=== PATIENT | female | born 1990 | race Hispanic/Latino ===

== ENCOUNTER 2020-06-23 15:28 | Observation (INO) | payer MEDICAID, SELFPAY ==
--- NOTE | ~2020-06-23 | US_ITS ---
US OB <=14 wk fetus w TV DATE: 06/23/2020 18:18 INDICATION: Right pelvic pain. Vaginal bleeding. Gravid patient. TECHNIQUE: Real-time imaging via transabdominal and transvaginal approaches. COMPARISON: None FINDINGS: The uterus measures 8 cm height, up to 5.7 cm anteroposterior and 7.3 cm transverse dimensi on. The central endometrial echo complex measures up to 2.1 cm. No intrauterine gestational sac is identi fied. In the left adnexal area and immediately contiguous with the left ovary there is an approximately 1.8 cm soft tissue density with central lucency, with hyperechoic rim surrounding lucency suggesting pos sible decidual reaction. Ectopic gestation is a concern. The findings are concern for possible left s ided ectopic gestation, with endometrial proliferation. The technologist reported no free fluid. IMPRESSION: Possible left ectopic gestation, with endometrial proliferation Reviewed, dictated and finalized at [facility]. Reviewed, dictated and finalized at location [facility].
--- NOTE | 2020-06-23 15:36 | ED.ABDPAIN ---
HPI - Abdominal Pain General Chief Complaint: Abdominal Pain Stated Complaint: preg?? abd pain/bleeding Time Seen by Provider: 06/23/20 15:31 Source: patient Mode of arrival: ambulatory Limitations: no limitations History of Present Illness HPI narrative: Patient is a 29-year-old female G2, P1 Mongolian speaking female who presents for evaluation of vaginal bleeding and pelvic pain. Patient reports right-sided lower pelvic pain which is currently mild in nature but was sharp in nature this morning and began at approximately 10:30 in the morning. Associated with scant vaginal bleeding which has mostly resolved. Patient denies any other vaginal discharge. No history of sexually transmitted infection. No fever, chills, nausea or vomiting. No back pain. Patient has no history of abdominal surgeries. She states her last menstrual cycle was May 11. Related Data Home Medications Medication Instructions Recorded Confirmed No Home Medications 06/23/20 06/23/20 Allergies Allergy/AdvReac Type Severity Reaction Status Date / Time No Known Allergies Allergy Verified 06/23/20 15:29 Review of Systems Review of Systems: Narrative: CONSTITUTIONAL: Denies fever, chills ENT: Denies rhinorrhea, congestion, sore throat, or otalgia. CARDIOVASCULAR: Denies chest pain, palpitations, or edema. RESPIRATORY: Denies cough or dyspnea. GASTROINTESTINAL: Reports right-sided abdominal pain, denies nausea, vomiting or diarrhea GENITOURINARY: Denies dysuria or hematuria. SKIN: Denies rash or itching. MUSCULOSKELETAL: Denies back pain, joint pain, or myalgia. NEUROLOGIC: Denies headache, numbness, or weakness. [facility] Past Medical History Medical History (Updated 06/23/20 @ 18:18 by Katey Justin MD) No pertinent past medical history Surgical History Surgical History (Updated 06/23/20 @ 16:18 by Katey Justin MD) No pertinent past surgical history Social History Social History (Updated 06/23/20 @ 16:18 by Katey Justin MD) Smoking status: Never smoker Alcohol intake: never Substance use: never Living arrangements: with family Gender identity (if verbalized by the patient): Female Exam Narrative: Exam Narrative: GENERAL: Awake, alert, conversant HEAD: Normocephalic, atraumatic. EYES: PERRLA and EOMI. ENT: Nares clear, no rhinorrhea or epistaxis. Mucous membranes moist. NECK: Supple. CHEST: No respiratory distress, breathing even and non labored HEART: Regular rate, sinus rhythm ABDOMEN:Non distended, mild right pelvic tenderness, no focal right lower quadrant tenderness, no rebound, no guarding, nonrigid PELVIC: Labia majora and minora normal without lesions. Vagina with scant blood. No cervical motion tenderness. No adnexal tenderness or fullness bilaterally. No mucoid discharge present. EXTREMITIES: Normal range of motion. No edema. SKIN: Warm, dry, no rash. NEURO:No focal deficits. Alert and oriented x3 Course Vital Signs Vital signs: Vital Signs Temperature 36.9 C 06/23/20 17:00 Pulse Rate 76 06/23/20 17:00 Respiratory Rate 16 06/23/20 17:00 Blood Pressure 116/76 06/23/20 17:00 Pulse Oximetry 99 06/23/20 17:00 Temperature 36.9 C 06/23/20 17:00 Pulse Rate 76 06/23/20 18:42 Respiratory Rate 16 06/23/20 18:42 Blood Pressure 128/80 06/23/20 18:42 Pulse Oximetry 100 06/23/20 18:42 MDM - Abdominal Pain MDM Narrative Medical decision making narrative: Patient presented to the emergency department for evaluation of right-sided lower pelvic pain in the setting of what may be early . Patient denies taking any test at home. At the time of assessment, ABCs are intact and vital signs are stable. Physical exam is notable for mild right lower pelvic tenderness. Patient's bedside test is faintly positive. IV access obtained and labs are drawn. Laboratory results notable for mild leukocytosis. No anemia. No electrolyte derangement. No UTI.
[2020-06-23 15:57] LABS: Basophils Absolute Auto 0.1 K/mm3 (0.0-0.1); Basophils Percent Auto 0.8 % (0.2-1.2); Eosinophils Absolute Auto 0.5 K/mm3 (0-0.3); Eosinophils Percent Auto 4.4 % (0-4.4); Hematocrit 40.5 % (37.0-47.0); Hemoglobin 13.8 g/dL (12.0-15.0); Immature Granulocyte Absolute 0.03 K/mm3 (0.00-0.031); Immature Granulocyte Percent A 0.3 % (0-0.5); Lymphocytes Absolute Auto 3.61 K/mm3 (0.9-3.2); Lymphocytes Percent Auto 31.8 % (18.3-44.2); Mean Corpuscular HGB Conc 34.1 g/dl (32-36); Mean Corpuscular Hemoglobin 32.2 pg (26-34); Mean Corpuscular Volume 94.6 fl (80-100); Mean Platelet Volume 10.2 fl (7.4-10.4); Monocytes Absolute Auto 0.9 K/mm3 (0.1-0.6); Monocytes Percent Auto 8.1 % (2.6-8.5); Neutrophils Absolute Auto 6.2 K/mm3 (1.3-6.7); Neutrophils Percent Auto 54.6 % (45.5-73.1); Platelet Count Result 325 k/mm3 (150-375); Red Blood Count 4.28 M/mm3 (4.2-5.4); Red Cell Distribution Width 11.8 % (11.5-14.5); White Blood Count 11.3 K/mm3 (4.5-10.0)
[2020-06-23 16:06] LABS: Prothrombin Time 12.5 Seconds (11.1-14.7)
[2020-06-23 16:10] LABS: Alanine Aminotransferase 12 U/L (4-35); Albumin Level 4.2 g/dL (3.5-5.1); Alkaline Phosphatase 66 U/L (38-126); Anion Gap 8 mmol/L (8-16); Aspartate Amino Transferase 19 U/L (14-36); Bilirubin,Total 0.5 mg/dL (0.2-1.3); Blood Urea Nitrogen 13 mg/dL (7-17); Calcium 8.8 mg/dL (8.4-10.2); Carbon Dioxide 25 mmol/L (22-30); Chloride 104 mmol/L (98-107); Estimated Glomerular Filt Rate > 60; Glucose 141 mg/dL (65-105); Potassium 3.9 mmol/L (3.4-5.0); Sodium 137 mmol/L (137-145)
[2020-06-23 16:26] LABS: Beta HCG Quantitative 325.39 mIU/ML
[2020-06-23] MEDS: SODIUM CHLORIDE 0.9% IV 1,000 ML 999 ML IV CONT ×2 (16:56→19:21)
[2020-06-23 17:00] VITALS: BP 116/76; PULSE 76; RESP 16; TEMP 36.9; O2SAT 99
[2020-06-23 17:06] LABS: Add Urine Microscopic? YES; Appearance Urine Clear (Clear); Bilirubin Urine Negative (Negative); Blood Urine 2+ (Negative); Color Urine Straw (Yellow); Glucose Urine UA Negative (Negative); Ketones Urine Negative (Negative); Leukocyte Esterase Ur Negative LEU/UL (Negative); Mucus Urine Rare /lpf; Nitrate Urine Negative (Negative); Protein Urine Negative (Negative); RBC Urine 0-2 /hpf (0-2); Squamous Epithelial Cell Urine Few /hpf (Few); Urobilinogen Urine Negative mg/dL (<2.0); WBC Urine 0-3 /hpf
[2020-06-23 18:42] VITALS: BP 128/80; PULSE 76; RESP 16; O2SAT 100
[2020-06-23 20:46] VITALS: BP 127/70; PULSE 77; RESP 18; TEMP 36.8; O2SAT 99
--- NOTE | 2020-06-23 20:47 | ADMGEN ---
This patient, Ina Chowdary, was admitted to 3 Medical Room 340-01. Patient/family oriented to hospital policies and general routines including ID bracelet, bed and alarms, visiting hours, pain management, procedures, bathroom and other care routines, personal items, smoking policy, room service/diet, and visiting hours. Valuables list has been completed. Information on how to activate the Rapid Response Team has been discussed. Patient/Family are encouraged to report perceived risks to care and to ask questions if they do not understand what they are told or what they should do.
[2020-06-23 21:13] VITALS: BMI 23.1
[2020-06-23 21:14] VITALS: BP 104/62; PULSE 66; RESP 16; TEMP 36.7; O2SAT 100
[2020-06-24 05:43] LABS: Basophils Absolute Auto 0.1 K/mm3 (0.0-0.1); Basophils Percent Auto 0.8 % (0.2-1.2); Eosinophils Absolute Auto 0.6 K/mm3 (0-0.3); Eosinophils Percent Auto 5.1 % (0-4.4); Hematocrit 40.4 % (37.0-47.0); Hemoglobin 13.5 g/dL (12.0-15.0); Immature Granulocyte Absolute 0.04 K/mm3 (0.00-0.031); Immature Granulocyte Percent A 0.4 % (0-0.5); Lymphocytes Absolute Auto 4.03 K/mm3 (0.9-3.2); Lymphocytes Percent Auto 36.9 % (18.3-44.2); Mean Corpuscular HGB Conc 33.4 g/dl (32-36); Mean Corpuscular Hemoglobin 32.5 pg (26-34); Mean Corpuscular Volume 97.1 fl (80-100); Mean Platelet Volume 10.1 fl (7.4-10.4); Monocytes Absolute Auto 0.8 K/mm3 (0.1-0.6); Monocytes Percent Auto 7.6 % (2.6-8.5); Neutrophils Absolute Auto 5.4 K/mm3 (1.3-6.7); Neutrophils Percent Auto 49.2 % (45.5-73.1); Platelet Count Result 305 k/mm3 (150-375); Red Blood Count 4.16 M/mm3 (4.2-5.4); Red Cell Distribution Width 11.9 % (11.5-14.5); White Blood Count 10.9 K/mm3 (4.5-10.0)
[2020-06-24 06:10] LABS: Beta HCG Quantitative 222.37 mIU/ML
[2020-06-24 06:21] VITALS: BP 109/58; PULSE 80; RESP 16; TEMP 37.1; O2SAT 100
--- NOTE | 2020-06-24 07:29 | PM.IMHP ---
H&P: HPI History of Present Illness Date/Time: 06/24/20 07:29 Chief complaint: Ectopic , possible free fluid Narrative: Ina Chowdary is a 29 year old female who came to the ED with complaint of vaginal spotting and RLQ pain. Patient LMP was 05/11/20 and + test of 325. U/s as expected did not show anything in the uterus but did have a 1.8 cm mass in Left adnexa. This am patient reports only minimal dark spotting and denies pain. This am HCG decreased in 12 hours to 222. H/H remain stable at 13/40. [facility] Past Medical History Medical History (Updated 06/24/20 @ 07:35 by Janell Grider MD) No pertinent past medical history Surgical History Surgical History (Updated 06/23/20 @ 16:18 by Katey Justin MD) No pertinent past surgical history Social History Social History (Updated 06/23/20 @ 16:18 by Katey Justin MD) Smoking status: Never smoker Alcohol intake: never Substance use: never Substance use type: does not use Living arrangements: with family Gender identity (if verbalized by the patient): Female Spiritual care concerns: No Meds Home Medications and Allergies Home Medications Medication Instructions Recorded Confirmed Type No Home Medications 06/23/20 06/23/20 History Allergies Allergy/AdvReac Type Severity Reaction Status Date / Time No Known Allergies Allergy Verified 06/23/20 15:29 Vital Signs Vital Signs - 24 hr 06/23/20 17:00 06/23/20 18:42 06/23/20 20:46 Temperature 98.4 F 98.2 F Pulse Rate 76 76 77 Respiratory Rate 16 16 18 Blood Pressure 116/76 128/80 127/70 Pulse Oximetry 99 100 99 06/23/20 21:14 06/24/20 06:21 Temperature 98.1 F 98.8 F Pulse Rate 66 80 Respiratory Rate 16 16 Blood Pressure 104/62 109/58 L Pulse Oximetry 100 100 Exam Const: General: no acute distress GI: GI Palp: Yes Soft to palpation and No Tenderness to palpation present (GI) H&P: Results Labs Labs: Short CBC 06/23/20 06/23/20 06/23/20 Range/Units 15:52 15:52 15:52 WBC 11.3 H (4.5-10.0) K/mm3 RBC 4.28 (4.2-5.4) M/mm3 Hgb 13.8 (12.0-15.0) g/dL Hct 40.5 (37.0-47.0) % MCV 94.6 (80-100) fl MCH 32.2 (26-34) pg MCHC 34.1 (32-36) g/dl RDW 11.8 (11.5-14.5) % Plt Count 325 (150-375) k/mm3 MPV 10.2 (7.4-10.4) fl Immature Gran % (Auto) 0.3 (0-0.5) % Neut % (Auto) 54.6 (45.5-73.1) % Lymph % (Auto) 31.8 (18.3-44.2) % [place] % (Auto) 8.1 (2.6-8.5) % Eos % (Auto) 4.4 (0-4.4) % Baso % (Auto) 0.8 (0.2-1.2) % Lymph # (Auto) 3.61 H (0.9-3.2) K/mm3 [place] # (Auto) 0.9 H (0.1-0.6) K/mm3 Eos # (Auto) 0.5 H (0-0.3) K/mm3 Baso # (Auto) 0.1 (0.0-0.1) K/mm3 Abs Immat Gran (auto) 0.03 (0.00-0.031) K/mm3 Absolute Neuts (auto) 6.2 (1.3-6.7) K/mm3 Absolute Nucleated RBC 0.0 (0.0-0.012) K/mm3 Nucleated RBC % 0.0 (0.0-0.2) % PT 12.5 (11.1-14.7) Seconds INR 1.0 APTT 28.0 (22.3-36.8) SECONDS Sodium 137 (137-145) mmol/L Potassium 3.9 (3.4-5.0) mmol/L Chloride 104 (98-107) mmol/L Carbon Dioxide 25 (22-30) mmol/L Anion Gap 8 (8-16) mmol/L BUN 13 (7-17) mg/dL Creatinine 0.50 L (0.7-1.0) mg/dL Estim Creat Clear Calc Not Reportable Estimated GFR > 60 (59 - ) Glucose 141 H (65-105) mg/dL Calcium 8.8 (8.4-10.2) mg/dL Total Bilirubin 0.5 (0.2-1.3) mg/dL AST 19 (14-36) U/L ALT 12 (4-35) U/L Alkaline Phosphatase 66 (38-126) U/L Total Protein 7.0 (6.3-8.2) g/dL Albumin 4.2 (3.5-5.1) g/dL Beta HCG, Quant 325.39 mIU/ML Urine Color (Yellow) Urine Appearance (Clear) Urine pH (5.0-9.0) Ur Specific [place] (1.001-1.035) Urine Protein (Negative) mg/dL Urine Glucose (UA) (Negative) mg/dL Urine Ketones (Negative) mg/dL Ur Blood (Man) (Negative) Urine Nitrate (Negative) Urine Bilirubin (Negative)
[2020-06-26 16:56] LABS: Tacrolimus Prograf <1.0 mcg/L
== END 2020-06-24 09:15 | disposition home or self-care (01) ==
LOC: ANHED 18:18 → ANH3MED 19:39
PROVIDERS: Admitting Provider Obstetrics & Gynecology Gynecology; Emergency Provider Emergency Medicine; Visit Provider Obstetrics & Gynecology Gynecology
DX: O03.9 Complete or unspecified spontaneous abortion without complication (principal); O00.90 Unspecified ectopic pregnancy without intrauterine pregnancy; Z3A.00 Weeks of gestation of pregnancy not specified
CPT/HCPCS: 36415; 76801; 76817; 80053; 80180; 80197; 81001; 81025; 84702; 85025; 85461; 85610; 85730; 87070; 87491; 87591; 87808; 96361; 96365; 99285; G0378; G0379; J0131; J7030

== ENCOUNTER 2020-12-12 18:05 | Emergency (ER) | payer OTHER, SELFPAY ==
--- NOTE | ~2020-12-12 | US_ITS ---
EXAMINATION: US OB <=14 wk fetus w TV DATE: 12/12/2020 22:18 INDICATION: Low abdominal pain. TECHNIQUE: Real-time transabdominal and transvaginal pelvic ultrasound was performed. COMPARISON: None. FINDINGS: TRANSABDOMINAL ULTRASOUND: The uterus measures 7.7 x 5.1 x 6.5 cm. TRANSVAGINAL ULTRASOUND: There is an intrauterine gestational sac with mean diameter of 1.2 cm, which correlates with an estimated gestational age of 5 weeks and 6 days +/- 4 days. A yolk sac is identif ied. No pole is identified. The right ovary measures 1.9 x 2.8 x 1.9 cm. The left ovary measur es 2.7 x 2.3 x 1.9 cm. There is no free fluid in the pelvis. IMPRESSION: 1. Single intrauterine gestation with estimated date of delivery of 08/08/2021. Reviewed, dictated and finalized at location A. 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 Single intrauterine gestation with estimated date of delivery of 08/08/2021 .
[2020-12-12 19:31] VITALS: BP 125/80; PULSE 85; RESP 18; TEMP 36.6; O2SAT 97
[2020-12-12 19:56] LABS: Basophils Absolute Auto 0.1 K/mm3 (0.0-0.1); Basophils Percent Auto 0.7 % (0.2-1.2); Eosinophils Absolute Auto 0.1 K/mm3 (0-0.3); Hematocrit 42.9 % (37.0-47.0); Hemoglobin 14.9 g/dL (12.0-15.0); Immature Granulocyte Absolute 0.02 K/mm3 (0.00-0.031); Immature Granulocyte Percent A 0.3 % (0-0.5); Lymphocytes Absolute Auto 1.44 K/mm3 (0.9-3.2); Lymphocytes Percent Auto 20.7 % (18.3-44.2); Mean Corpuscular HGB Conc 34.7 g/dl (32-36); Mean Corpuscular Volume 95.1 fl (80-100); Mean Platelet Volume 9.8 fl (7.4-10.4); Monocytes Percent Auto 14.8 % (2.6-8.5); Neutrophils Absolute Auto 4.4 K/mm3 (1.3-6.7); Neutrophils Percent Auto 62.5 % (45.5-73.1); Platelet Count Result 343 k/mm3 (150-375); Red Blood Count 4.51 M/mm3 (4.2-5.4); Red Cell Distribution Width 12.1 % (11.5-14.5)
[2020-12-12 20:08] LABS: Alanine Aminotransferase 25 U/L (4-35); Albumin Level 4.7 g/dL (3.5-5.1); Alkaline Phosphatase 69 U/L (38-126); Anion Gap 7 mmol/L (8-16); Aspartate Amino Transferase 36 U/L (14-36); Bilirubin,Total 0.6 mg/dL (0.2-1.3); Blood Urea Nitrogen 8 mg/dL (7-17); Calcium 9.7 mg/dL (8.4-10.2); Carbon Dioxide 28 mmol/L (22-30); Chloride 102 mmol/L (98-107); Estimated CRCL calculation 112 ml/min; Estimated Glomerular Filt Rate > 60; Glucose 89 mg/dL (65-105); Lipase 67 U/L (23-300); Potassium 3.8 mmol/L (3.4-5.0); Sodium 137 mmol/L (137-145)
[2020-12-12 20:41] LABS: Add Urine Microscopic? YES; Appearance Urine Clear (Clear); Bacteria Urine Trace /hpf; Bilirubin Urine Negative (Negative); Blood Urine Negative (Negative); Color Urine Straw (Yellow); Glucose Urine UA Negative (Negative); Ketones Urine Trace mg/dL (Negative); Leukocyte Esterase Ur Negative LEU/UL (Negative); Nitrate Urine Negative (Negative); Protein Urine Negative (Negative); RBC Urine 0-2 /hpf (0-2); Specific Grav Ur 1.006 (1.001-1.035); Squamous Epithelial Cell Urine Occasional /hpf (Few); Urobilinogen Urine Negative mg/dL (<2.0); WBC Urine 0-3 /hpf
--- NOTE | 2020-12-12 20:45 | ED.GENADULT ---
HPI - General Adult General Chief complaint: Abdominal Pain Stated complaint: right abd pain Time Seen by Provider: 12/12/20 19:55 History of Present Illness HPI narrative: Patient is a 30-year-old female who presents to the ER with lower abdominal pain. Begins in the right lower abdomen and moves to the midline. Cramping in nature. Worse at night. No nausea/vomiting. She has no urinary or gastric symptoms related to this. Patient does have history of ectopic several months ago. She reports her LMP was 10/10/2020. Has not taken a test. She reports she could potentially be . No vaginal bleeding or discharge. Related Data Allergies Allergy/AdvReac Type Severity Reaction Status Date / Time No Known Allergies Allergy Verified 12/12/20 19:59 Review of Systems Review of Systems: All systems reviewed & are unremarkable except as noted in HPI and below Constitutional: Constitutional: Denies chills, Denies fever(s) and Denies weakness Gastrointestinal: Gastrointestinal: Reports abdominal pain, Denies nausea and Denies vomiting Genitourinary: Genitourinary: Denies abnormal vaginal bleeding, Denies nocturia, Denies dysuria and Denies vaginal discharge [facility] Past Medical History Medical History (Updated 12/12/20 @ 23:08 by Yemi Gilmore MD) No pertinent past medical history Surgical History Surgical History (Updated 06/23/20 @ 16:18 by Katey Justin MD) No pertinent past surgical history Social History Social History (Updated 06/23/20 @ 16:18 by Katey Justin MD) Smoking status: Never smoker Alcohol intake: never Substance use: never Substance use type: does not use Gender identity (if verbalized by the patient): Female Spiritual care concerns: No Exam Narrative: Exam Narrative: GENERAL: Well-appearing, well-nourished, and in no acute distress. HEAD: Normocephalic, atraumatic. CHEST: Clear to auscultation. No respiratory distress. HEART: Regular rate and rhythm. Normal peripheral pulses. ABDOMEN: Soft, mild suprapubic tenderness without rebound or guarding next week, additional discomfort in right lower quadrant/adnexal region, nondistended. EXTREMITIES: Normal range of motion. No edema. SKIN: Warm, dry, no rash. NEURO: Alert and oriented x3. PSYCH: Normal mood and affect. Course Course Emergency Course: Patient informed of results. Discharge home vitamins. She does not feel she needs any antiemetics. 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 Vital Signs Vital signs: Vital Signs Temperature 97.8 F 12/12/20 19:31 Pulse Rate 85 12/12/20 19:31 Respiratory Rate 18 12/12/20 19:31 Blood Pressure 125/80 12/12/20 19:31 Pulse Oximetry 97 12/12/20 19:31 Temperature 97.8 F 12/12/20 19:31 Pulse Rate 73 12/12/20 21:24 Respiratory Rate 16 12/12/20 21:24 Blood Pressure 125/80 12/12/20 19:31 Pulse Oximetry 98 12/12/20 21:24 Medical Decision Making Vital Signs Vital Signs: Vital Signs Temperature 97.8 F 12/12/20 19:31 Pulse Rate 85 12/12/20 19:31 Respiratory Rate 18 12/12/20 19:31 Blood Pressure 125/80 12/12/20 19:31 Pulse Oximetry 97 12/12/20 19:31 Temperature 97.8 F 12/12/20 19:31 Pulse Rate 73 12/12/20 21:24 Respiratory Rate 16 12/12/20 21:24 Blood Pressure 125/80 12/12/20 19:31 Pulse Oximetry 98 12/12/20 21:24 Lab Data Result diagrams: 12/12/20 19:49 12/12/20 19:49 Labs: Lab Results 12/12/20 12/12/20 12/12/20 Range/Units 19:49 19:49 20:31 WBC 7.0 (4.5-10.0) K/mm3 RBC 4.51 (4.2-5.4) M/mm3 Hgb 14.9 (12.0-15.0) g/dL Hct 42.9 (37.0-47.0) % MCV 95.1 (80-100) fl MCH 33.0 (26-34) pg MCHC 34.7 (32-36) g/dl RDW 12.1 (11.5-14.5) % Plt Count 343 (150-375) k/mm3 MPV 9.8 (7.4-10.4) fl Immature Gran % (Auto) 0.3 (0-0.5) % Neut % (Au
[2020-12-12 21:24] VITALS: PULSE 73; RESP 16; O2SAT 98
[2020-12-12 23:19] VITALS: BP 115/75; PULSE 78; RESP 16; O2SAT 98
== END 2020-12-12 23:21 | disposition home or self-care (01) ==
PROVIDERS: Emergency Provider Emergency Medicine
DX: O26.891 Other specified pregnancy related conditions, first trimester (principal); R10.31 Right lower quadrant pain; Z3A.01 Less than 8 weeks gestation of pregnancy
CPT/HCPCS: 36415; 76801; 76817; 80053; 81001; 81025; 83690; 85025; 99284

== ENCOUNTER 2021-01-08 16:04 | Outpatient (CLI) | payer OTHER, SELFPAY ==
--- NOTE | ~2021-01-08 | US_ITS ---
EXAMINATION: US OB <= 14 weeks fetus DATE: 01/08/2021 16:44 INDICATION: Encounter for supervision of normal TECHNIQUE: Real-time transabdominal obstetric ultrasound. FINDINGS: Comparison to ultrasound dated 12/12/2020 The uterus measures 14.7 x 8 x 6.5 cm. There is an intrauterine gestational sac, with pole iden tified. The crown rump length measures 3.04 cm. heart tones are identified measuring. 161 no e vidence for subchorionic hemorrhage. The ovaries are not visualized.. IMPRESSION: 1. SL IUP with an EGA of 9 weeks, 5 days (EDC by initial ultrasound of 08/08/2021). Appropriate inter dianne growth. Reviewed, dictated and finalized at location [facility]. IMPRESSION: 1. SL IUP with an EGA of 9 weeks, 5 days (EDC by initial ultrasound of 08/08/20 21). Appropriate interval growth.
== END 2021-01-08 16:05 | disposition home or self-care (01) ==
PROVIDERS: PCP Obstetrics & Gynecology; Visit Provider Obstetrics & Gynecology
DX: Z34.91 Encounter for supervision of normal pregnancy, unspecified, first trimester (principal); Z3A.09 9 weeks gestation of pregnancy
CPT/HCPCS: 76801

== ENCOUNTER 2021-02-19 18:42 | Emergency (ER) | payer OTHER, SELFPAY ==
[2021-02-19 18:43] VITALS: BP 115/72; PULSE 82; RESP 18; TEMP 36.2; O2SAT 100
--- NOTE | 2021-02-19 19:09 | ED.FEMALEGU ---
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 She is 16 weeks She complains of a 1 week history of right groin pain It is worse with some movements and when sitting in certain positions She does not have a fever nor any new GI or urinary symptoms She had 2 episodes of brownish discharge earlier today She has had a previous ED visit this documenting O+, and an intrauterine , confirming the 16-week current gestational age Related Data Home Medications Medication Instructions Recorded Confirmed calcium carbonate-vitamin D3 tablet PO 02/19/21 progesterone micronized mg 02/19/21 Allergies Allergy/AdvReac Type Severity Reaction Status Date / Time No Known Allergies Allergy Verified 02/19/21 18:51 Review of Systems Review of Systems: All systems reviewed & are unremarkable except as noted in HPI and below Respiratory: Respiratory: Denies cough and Denies dyspnea Gastrointestinal: Gastrointestinal: Reports abdominal pain, Denies constipation, Denies diarrhea, Denies nausea and Denies vomiting Genitourinary: Genitourinary: Denies hematuria, Denies dysuria, Reports pelvic pain, Denies flank pain and Reports vaginal discharge [facility] Past Medical History Medical History (Updated 02/19/21 @ 20:30 by Héctor Burch MD) No pertinent past medical history Surgical History Surgical History (Updated 06/23/20 @ 16:18 by Katey Justin MD) No pertinent past surgical history Social History Social History (Updated 06/23/20 @ 16:18 by Katey Justin MD) Smoking status: Never smoker Alcohol intake: never Substance use: never Substance use type: does not use Gender identity (if verbalized by the patient): Female Spiritual care concerns: No Exam Const: General: cooperative, no acute distress and alert Orientation/consciousness: patient oriented x3 (alert) HENMT: Head: normal to inspection, normocephalic and atraumatic Ears: external ears normal General nose exam: no epistaxis Eyes: Conjunctivae: conjunctivae normal EOM: EOMs intact bilaterally Neck: Neck: normal visual inspection, supple and no JVD Resp: Effort & Inspection: normal respiratory effort and not labored Auscultation: other (BS =) GI: GI Palp: Yes Soft to palpation and Yes Tenderness to palpation present (GI) Other: Size consistent with dates She is quite tender in a small well localized area on the muscular insertions of the right side of the symphysis pubis Not too much discomfort with the leg raise There is some brownish d/c, cx sent, empiric rx given : General: Yes no CVA tenderness Skin: General skin exam: normal color and no rashes or lesions noted Neuro: General: patient oriented x3 (alert) and moves all extremities Speech: normal speech Extrem: General: normal to inspection and no pedal edema Psych: Affect: normal affect Course Vital Signs Vital signs: Vital Signs Temperature 36.2 C L 02/19/21 18:43 Pulse Rate 82 02/19/21 18:43 Respiratory Rate 18 02/19/21 18:43 Blood Pressure 115/72 02/19/21 18:43 Pulse Oximetry 100 02/19/21 18:43 Temperature 36.2 C L 02/19/21 18:43 Pulse Rate 82 02/19/21 18:43 Respiratory Rate 18 02/19/21 18:43 Blood Pressure 115/72 02/19/21 18:43 Pulse Oximetry 100 02/19/21 18:43 MDM - Female Genitourinary Lab Data Result diagrams: 02/19/21 19:19 Labs: Lab Results 02/19/21 02/19/21 Range/Units 19:19 19:35 WBC 13.6 H (4.5-10.0) K/mm3 RBC 3.67 L (4.2-5.4) M/mm3 Hgb 12.1 (12.0-15.0) g/dL Hct 35.6 L (37.0-47.0) % MCV 97.0 (80-100) fl MCH 33.0 (26-34) pg MCHC 34.0 (32-36) g/dl
[2021-02-19 19:23] LABS: Basophils Absolute Auto 0.1 K/mm3 (0.0-0.1); Basophils Percent Auto 0.4 % (0.2-1.2); Eosinophils Absolute Auto 0.3 K/mm3 (0-0.3); Eosinophils Percent Auto 2.4 % (0-4.4); Hematocrit 35.6 % (37.0-47.0); Hemoglobin 12.1 g/dL (12.0-15.0); Immature Granulocyte Absolute 0.05 K/mm3 (0.00-0.031); Immature Granulocyte Percent A 0.4 % (0-0.5); Lymphocytes Absolute Auto 3.48 K/mm3 (0.9-3.2); Lymphocytes Percent Auto 25.7 % (18.3-44.2); Mean Platelet Volume 10.1 fl (7.4-10.4); Monocytes Absolute Auto 0.8 K/mm3 (0.1-0.6); Monocytes Percent Auto 6.1 % (2.6-8.5); Neutrophils Absolute Auto 8.8 K/mm3 (1.3-6.7); Platelet Count Result 292 k/mm3 (150-375); Red Blood Count 3.67 M/mm3 (4.2-5.4); Red Cell Distribution Width 12.3 % (11.5-14.5); White Blood Count 13.6 K/mm3 (4.5-10.0)
[2021-02-19 19:43] LABS: Add Urine Microscopic? NO; Appearance Urine Clear (Clear); Bilirubin Urine Negative (Negative); Blood Urine Negative (Negative); Color Urine Colorless (Yellow); Glucose Urine UA Negative (Negative); Ketones Urine Negative (Negative); Leukocyte Esterase Ur Negative LEU/UL (Negative); Nitrate Urine Negative (Negative); Protein Urine Negative (Negative); Urobilinogen Urine Negative mg/dL (<2.0)
[2021-02-19 19:52] LABS: Specific Grav Ur 1.004 (1.001-1.035)
[2021-02-19 20:20] VITALS: BP 98/68; PULSE 73; RESP 20; O2SAT 99
[2021-02-19 21:05] VITALS: BP 104/64; PULSE 71; RESP 18; O2SAT 99
== END 2021-02-19 21:07 | disposition home or self-care (01) ==
PROVIDERS: Emergency Provider Emergency Medicine; PCP Obstetrics & Gynecology
DX: O26.892 Other specified pregnancy related conditions, second trimester (principal); R10.31 Right lower quadrant pain; Z3A.16 16 weeks gestation of pregnancy
CPT/HCPCS: 36415; 81003; 85025; 87070; 87491; 87591; 87808; 99284

== ENCOUNTER 2021-03-07 08:50 | Outpatient (CLI) | payer OTHER, SELFPAY ==
--- NOTE | ~2021-03-07 | US_ITS ---
EXAMINATION: US OB /maternal detail DATE: 03/07/2021 15:27 INDICATION: Second trimester anatomic survey TECHNIQUE: Real-time ultrasound of the pelvis was performed. COMPARISON: None. FINDINGS: There is a single living fetus in breech presentation. The placenta is anterior and 9.3 cm from the i nternal cervical os. heart rate is 154 beats per minute (bpm). cardiac activity and feta l movement are noted. The amniotic fluid index is subjectively normal. The following anatomy was identified as normal: 4 chamber heart 3 vessel cord cord insertion kidney urinary bladder stomach spine diaphragm ventricles cisterna magna cerebellum The following biometric data were obtained: Biparietal diameter (BPD): 4.1 cm; head circumference (HC): 14.9 cm; abdominal circumference (AC): 13 .2 cm; femur length (FL): 2.5 cm. These measurements are concordant. Estimated weight is 228 g +/- 34 g, which correlates with the 58th percentile when 08/08/2021 i s used as estimated date of delivery. As single measurements, these parameters are each equal to the following estimated gestational ages w ith ranges of +/- 2 standard deviations: BPD: 18 weeks 4 days +/- 1 weeks 5 days. HC: 18 weeks 0 days +/- 1 weeks 3 days. AC: 18 weeks 5 days +/- 2 weeks 0 days. FL: 17 weeks 4 days +/- 1 weeks 3 days. estimated gestational age based solely on measurements from this exam is 18 weeks 2 days +/- 1 weeks 2 days. IMPRESSION: 1. Single living fetus in breech presentation. 2. Estimated weight is 228 g +/- 34 g, which correlates with the 58th percentile when is used as estimated date of delivery. Reviewed, dictated and finalized at location A. IMPRESSION: 1. Single living fetus in breech presentation. 2. Estimated weight is 228 g +/- 34 g, which correlates with the 58th per centile when 08/08/2021 is used as estimated date of delivery.
== END 2021-03-07 08:51 | disposition home or self-care (01) ==
PROVIDERS: Visit Provider Obstetrics & Gynecology
DX: Z34.92 Encounter for supervision of normal pregnancy, unspecified, second trimester (principal); Z3A.18 18 weeks gestation of pregnancy
CPT/HCPCS: 76805

== ENCOUNTER 2021-04-24 16:36 | Outpatient (CLI) | payer OTHER, SELFPAY ==
--- NOTE | ~2021-04-24 | US_ITS ---
EXAMINATION: US OB follow up DATE: 04/24/2021 17:06 INDICATION: Evaluate growth TECHNIQUE: Real-time transabdominal obstetric ultrasound. FINDINGS: Comparison to multiple prior studies sequentially, with oldest reviewed study dated . There is a single living fetus in breech presentation. The placenta is anterior without placenta pre via. cardiac activity and movement is noted with a heart rate of 161 beats per minute. T he amniotic fluid volume is subjectively normal. The following biometric data were obtained: BPD: 42mm corresponds to gestational age 18 weeks 4 days. Head circumference: 149mm corresponds to gestational age 18 weeks 0 days. Abdominal circumference: 133mm corresponds to gestational age 18 weeks 5 days. Femur length: 25mm corresponds to gestational age 17 weeks 4 days. Estimated weight: 229grams +/- 34grams, 58th percentile.] IMPRESSION: 1. Single living intrauterine in breech presentation with an estimated gestational age of 18 weeks 2 days by inititial ultrasound. Appropriate interval growth. 2. Normal placenta. Reviewed, dictated and finalized at location A. IMPRESSION: 1. Single living intrauterine in breech presentation with an estimat ed gestational age of 18 weeks 2 days by inititial ultrasound. Appropriate int erval growth. 2. Normal placenta.
== END 2021-04-24 16:37 | disposition home or self-care (01) ==
PROVIDERS: PCP Obstetrics & Gynecology; Visit Provider Obstetrics & Gynecology
DX: Z34.92 Encounter for supervision of normal pregnancy, unspecified, second trimester (principal); Z3A.18 18 weeks gestation of pregnancy
CPT/HCPCS: 76816

== ENCOUNTER 2021-06-16 13:51 | Outpatient (CLI) | payer OTHER, SELFPAY ==
--- NOTE | ~2021-06-16 | US_ITS ---
EXAMINATION: US OB follow up DATE: 06/16/2021 14:44 INDICATION: Routine care. Third trimester. TECHNIQUE: Real-time ultrasound of the pelvis was performed. COMPARISON: Ultrasound 04/24/2021, 12/12/20 FINDINGS: There is a single living fetus in vertex presentation. The placenta is fundal. heart rate is 1 45 beats per minute (bpm). The amniotic fluid index is 15.4 cm, which is normal. The following biometric data were obtained: Biparietal diameter (BPD): 8.2 cm; head circumference (HC): 29.6 cm; abdominal circumference (AC): 29 .4 cm; femur length (FL): 6.5 cm. These measurements are concordant. Estimated weight is 2152 g +/- 323 g, which correlates with 67th percentile when 08/08/21 is us ed as estimated date of delivery. As single measurements, these parameters are each equal to the following estimated gestational ages: BPD: 32 weeks 5 days. HC: 32 weeks 5 days. AC: 33 weeks 3 days. FL: 33 weeks 3 days. estimated gestational age based solely on measurements from this exam is 33 weeks 1 days +/- 2 weeks 2 days. IMPRESSION: 1. Single living fetus in vertex presentation. 2. Estimated weight is 2152 g +/- 323 g, which correlates with 67th percentile when 08/08/21 i s used as estimated date of delivery. This date was set by ultrasound on 12/12/20. Reviewed, dictated and finalized at location A. IMPRESSION: 1. Single living fetus in vertex presentation. 2. Estimated weight is 2152 g +/- 323 g, which correlates with 67th perc entile when 08/08/21 is used as estimated date of delivery. This date was set b y ultrasound on 12/12/20.
== END 2021-06-16 13:52 | disposition home or self-care (01) ==
PROVIDERS: PCP Obstetrics & Gynecology; Visit Provider Obstetrics & Gynecology
DX: Z34.90 Encounter for supervision of normal pregnancy, unspecified, unspecified trimester (principal)
CPT/HCPCS: 76816

== ENCOUNTER 2021-08-07 05:25 | Inpatient (IN) | payer OTHER, SELFPAY ==
[2021-08-07] VITALS (25 sets, daily range): BP systolic 97–130; BP diastolic 44–97; PULSE 61–92; RESP 16; TEMP 36.4–36.7; O2SAT 98–99; BMI 32.5
[2021-08-07 08:11] LABS: Basophils Absolute Auto 0.1 K/mm3 (0.0-0.1); Basophils Percent Auto 0.5 % (0.2-1.2); Eosinophils Absolute Auto 0.3 K/mm3 (0-0.3); Eosinophils Percent Auto 2.2 % (0-4.4); Hematocrit 40.6 % (37.0-47.0); Hemoglobin 13.6 g/dL (12.0-15.0); Immature Granulocyte Absolute 0.09 K/mm3 (0.00-0.031); Immature Granulocyte Percent A 0.7 % (0-0.5); Lymphocytes Absolute Auto 2.69 K/mm3 (0.9-3.2); Lymphocytes Percent Auto 20.4 % (18.3-44.2); Mean Corpuscular HGB Conc 33.5 g/dl (32-36); Mean Corpuscular Hemoglobin 32.8 pg (26-34); Mean Corpuscular Volume 97.8 fl (80-100); Monocytes Percent Auto 7.3 % (2.6-8.5); Neutrophils Absolute Auto 9.1 K/mm3 (1.3-6.7); Neutrophils Percent Auto 68.9 % (45.5-73.1); Platelet Count Result 262 k/mm3 (150-375); Red Blood Count 4.15 M/mm3 (4.2-5.4); Red Cell Distribution Width 13.5 % (11.5-14.5); White Blood Count 13.2 K/mm3 (4.5-10.0)
--- NOTE | 2021-08-07 08:37 | PM.IMHP ---
H&P: HPI History of Present Illness Date/Time: 08/07/21 08:37 30 yo presents with spontaneous onset of labor at 39w6d. She denies rupture membranes or vaginal bleeding she has had active activity Patient with history of spontaneous and PCOS she has had 1 prior vaginal delivery in [facility]. She understands her condition procedure and risks and agrees to proceed. Her care began January 01, 2021 and she has had a total number of 12 visits. was monitored with noninvasive testing and AFP on normal ultrasound no evidence of defects male identified 1 hour glucose normal group B strep negative. She was scheduled for induction of labor next week. Chief Complaint: Term , spontaneous onset of labor Review of Systems Review of Systems: All systems reviewed & are unremarkable except as noted in HPI and below Constitutional: Constitutional: Reports no additional constitutional complaints Eyes: Eyes: Reports no additional eye complaints ENT: Reports system reviewed and no additional complaints, except as documented Cardiovascular: Cardiovascular: Reports no additional cardiovascular complaints Respiratory: Respiratory: Reports no additional respiratory complaints Gastrointestinal: Gastrointestinal: Reports no additional gastrointestinal complaints Genitourinary: Genitourinary: Reports no additional female genitourinary complaints Musculoskeletal: Musculoskeletal: Reports no additional musculoskeletal complaints Integumentary/Breasts: Skin/Breast: Reports system reviewed and no additional complaints, except as docu Neurologic: Reports system reviewed and no additional complaints, except as documented Psychiatric: Psychiatric: Reports no additional psychiatric complaints Endocrine: Endocrine: Reports no additional endocrine complaints Hematologic/Lymphatic: Hematologic/Lymphatic: Reports no additional hematologic/lymphatic complaints Allergic/Immunologic: Allergic/Immunologic: Reports no additional allergic/immunologic complaints [facility] Past Medical History Medical History (Updated 08/07/21 @ 08:52 by Héctor Carrion MD) Blood testosterone increased compared with prior measurement History of miscarriage No pertinent past medical history PCOS (polycystic ovarian syndrome) Vaginal delivery 04/08/20171408 lbs.2 oz.MVaginalFull Term BirthNonebaby boy born in [facility], Surgical History Surgical History No pertinent past surgical history Family History Family History Father Hypertension Social History Social History (Updated 08/07/21 @ 08:49 by Héctor Carrion MD) Smoking status: Never smoker Second hand tobacco smoke exposure: No Alcohol intake: never Substance use: never Substance use type: does not use Living arrangements: with family Occupation/Education: unemployed Gender identity (if verbalized by the patient): Female Sexual Orientation (if Verbalized by the Patient): Straight or Heterosexual Spiritual care concerns: No Agree to blood products: Yes Meds Home Medications and Allergies Home Medications Medication Instructions Recorded Confirmed Type vit no.[id number] 1 tablet PO DAILY #90 tablet 12/12/20 07/09/21 Rx [Classic ] calcium carbonate-vitamin D3 1 tablet PO DAILY 02/19/21 07/09/21 History progesterone micronized 200 mg PO DAILY 02/19/21 07/09/21 History aspirin 81 mg PO DAILY 07/09/21 07/09/21 History Allergies Allergy/AdvReac Type Severity Reaction Status Date / Time latex Allergy Rash Verified 07/09/21 14:07 Exam Const: General: cooperative, healthy appearing, comfortable, no acute distress, well developed, alert, awake and Physically active Nutritional Appearance: average body habitus Orientation/consciousness: patient oriented x3 Limi
--- NOTE | 2021-08-07 08:55 | P.HPUP_ITS ---
History and Physical Update Update Date/Time: 08/07/21 08:55 History and Physical has been reviewed, including an updated exam of the patient. There are NO changes in the patient's condition. Risks, benefits, and alternatives have been discussed and questions answered. Patient agrees to proceed with procedure. 30 yo presents with spontaneous onset of labor at 39w6d. She denies rupture membranes or vaginal bleeding she has had active activity Patient with history of spontaneous and PCOS she has had 1 prior vaginal delivery in [facility]. She understands her condition procedure and risks and agrees to proceed. Her care began January 01, 2021 and she has had a total number of 12 visits. was monitored with noninvasive testing and AFP on normal ultrasound no evidence of defects male identified 1 hour glucose normal group B strep negative. She was scheduled for induction of labor next week. Chief Complaint: Term , spontaneous onset of labor She desires natural childbirth she is having a boy in no circumcision desired she will be and the director of pediatric rehabilitation is Dr. Barton at [facility]
--- NOTE | 2021-08-07 08:56 | P.HP_ITS ---
Obstetrics - Admit Note Admission Note: record reviewed. No pertinent additions to the history and/or any subsequent changes in the physical findings that are not consistent with the expected course of the were found. Additions to the history and/or subsequent changes in the physical findings follow. None. 30 yo presents with spontaneous onset of labor at 39w6d. She denies rupture membranes or vaginal bleeding she has had active activity Patient with history of spontaneous and PCOS she has had 1 prior vaginal delivery in [facility]. She understands her condition procedure and risks and agrees to proceed. Her care began January 01, 2021 and she has had a total number of pre 12 visits. was monitored with noninvasive testing and AFP on normal ultrasound no evidence of defects male identified 1 hour glucose normal group B strep negative. She was scheduled for induction of labor next week. Chief Complaint: Term , spontaneous onset of labor She desires natural childbirth should be she is having a boy no circumcision desired the field sales associate is [facility] care doctor Pope
--- NOTE | 2021-08-07 10:42 | PM.OBPNLAB ---
Pain Control Date/time seen: 08/07/21 10:42 Pain control: tolerating well Pelvic Exam Dilation (cm): 3 Effacement (%): 75 station: -2 Amniotic membrane status: Ruptured ( AROM clear fluid) Contractions Monitor mode: External Contraction frequency: 3 Contraction duration: 45 Contraction pattern: Regular Contraction phase: Contraction Contraction intensity: Moderate Status status: Category l Assessment and Plan Assessment: active labor Plan: continuous present management
--- NOTE | 2021-08-07 11:05 | PM.OBPNLAB ---
Pain Control Date/time seen: 08/07/21 11:05 Pain control: tolerating well Pelvic Exam Dilation (cm): 7 Effacement (%): 90 station: -1 Amniotic membrane status: Ruptured ( AROM clear fluid) Contractions Monitor mode: External Contraction frequency: 3 Contraction duration: 45 Contraction pattern: Regular Contraction phase: Contraction Contraction intensity: Strong/Firm Status status: Category l Assessment and Plan Assessment: active labor Plan: continuous present management
--- NOTE | 2021-08-07 11:30 | PM.OBPNLAB ---
Pain Control Date/time seen: 08/07/21 11:30 Pelvic Exam Dilation (cm): 10 Effacement (%): 100 station: +1 Amniotic membrane status: Ruptured ( AROM clear fluid) Contractions Monitor mode: External Contraction frequency: 3 Contraction pattern: Regular Contraction phase: Contraction Contraction intensity: Strong/Firm Status status: Category l Assessment and Plan Assessment: active labor Plan: continuous present management
[2021-08-07] MEDS: OXYTOCIN 30 UNITS/NS 500 ML 30 UNITS/500 ML BAG IV CONT (11:41)
[2021-08-07] MEDS: IBUPROFEN 600 MG TABLET PO ×2 (11:55→18:55)
--- NOTE | 2021-08-07 12:07 | PM.OBPRVD ---
OB - Delivery Note Procedure Delivery date: 08/07/21 Procedure: normal spontaneous vertex vaginal delivery a viable male infant and placenta Intrapartal events: None Induction method: none Delivery augmentation: rupture of membranes Delivery monitor: external FHT and external uterine Route of delivery: Episiotomy description: None Laceration Description: None Quantitative Blood Loss (ml): 100 Anesthesia type: None Disposition: floor Complications: none Narrative: complete cervical dilation normal spontaneous vertex vaginal delivery a viable male over an intact perineum nuchal cord reduced upon delivery anterior shoulder delivered without difficulty. Infant placed on maternal abdomen internal cone EM noted. Spontaneous respirations and cry cord clamped and cut nose and throat bulb suction normal transition. Cord gases and cord blood obtained. Placenta delivered intact three-vessel cord uterus contracted well Pitocin given intravenously. No cuts tears or lacerations sponge count correct no sponges left in vagina sphincters intact. Baby Date of : 08/07/21 Time of : 11:37 Weeks of gestation at delivery: 39 gender: Male Weight (pounds): 8 Weight (ounces): 1 presentation: vertex position: Left Occiput Anterior Placenta delivery description: Spontaneous and Normal Configuration cord vessel description: 3 Vessels score one minute: 9 score five minutes: 9 Narrative: Normal transition normal exam taken to the nursery in stable condition
--- NOTE | 2021-08-07 14:28 | PC.NURSE ---
Patient transferred to post room #280 via [id number]. Support person present. Oriented to unit, room, information board, rooming in, admission packet and security measures using environmental property assessor line. Patient verbalizes understanding.
[2021-08-08] MEDS: IBUPROFEN 600 MG TABLET PO ×2 (01:03→12:33)
[2021-08-08 03:15] VITALS: BP 103/58; PULSE 70; RESP 16; TEMP 36.7; O2SAT 98
[2021-08-08 05:45] LABS: Hematocrit 38.6 % (37.0-47.0); Hemoglobin 12.9 g/dL (12.0-15.0)
[2021-08-08] MEDS: ACETAMINOPHEN 325 MG TABLET 650 MG PO ×2 (06:00→12:32)
--- NOTE | 2021-08-08 07:30 | PC.NURSE ---
PT introductions made and plan of care discussed per post , breast bottle feeding, daily care activities, pain management and pending discharge to home. PT verbalized understanding per 's translation. PT and spouse both have language barriers identified. PT received instructions and education this shift via one to one discussion using language line, phone tawnya, mom baby care guide and demonstrations. PT and spouse both recipients of such instructions.
--- NOTE | 2021-08-08 09:00 | PM.OBDSVD ---
DS: Admitting Diagnosis Discharge Date 08/08/21 Admitting Diagnosis (1) Term : Code(s): Z34.90 - Encounter for supervision of normal , unspecified, unspecified trimester Status: Acute (2) Spontaneous onset of labor: Status: Acute DS: Discharge Diagnosis Discharge Diagnosis (1) Term delivered: Code(s): O80 - Encounter for full-term uncomplicated delivery Status: Acute (2) Spontaneous onset of labor: Status: Acute OB - DS: Summary Hospital Course Time spent discussing smoking cessation with patient: 3 to 10 minutes OB Procedures : Ultrasound OB Procedures Intrapartum: Spontaneous Vag Delivery OB Procedures: : None Peripartum Data Infant Delivery Method: Natural Vaginal Laceration Description: None Episiotomy description: None Procedures: normal spontaneous vertex vaginal delivery a viable male and placenta complications: none [place] 1: Gender: Male Disposition of : home Status at Discharge Cognitive/behavioral status at discharge: normal Functional status at discharge: independent ambulation Overall status at discharge: patient is back to baseline Time Spent with Patient Time attestation: Total time spent providing and/or coordinating discharge services: Time spent: Less than 30 minutes Exam Const: General: cooperative, healthy appearing, comfortable, no acute distress, well developed, alert, awake and Physically active Nutritional Appearance: average body habitus and well nourished Orientation/consciousness: patient oriented x3 Limitations: no limitations HENMT: Head: normal to inspection Eyes: General: appearance normal, both eyes and all related structures Neck: Neck: normal visual inspection Chest: Chest palpation & inspection: normal inspection of the chest Resp: Effort & Inspection: normal respiratory effort Auscultation: clear to auscultation bilaterally Cardio: Rate: regular rate Rhythm: regular rhythm GI: Inspection: normal to inspection GI Palp: Yes Soft to palpation Auscultation: normal bowel sounds : External Female Exam: normal external appearance Bimanual exam- vagina & uterus: non-tender Back/Spine/Pelvis: Back: no CVA tenderness Skin: General skin exam: normal color Neuro: General: patient oriented x3, gait normal, tone normal, moves all extremities and Normal light touch and pain sensation Extrem: General: normal to inspection and full ROM Psych: Appearance: grossly normal Mental Status: mental status grossly normal Speech and movement: Normal speech and movement present Affect: normal affect Attitude: cooperative Thought process: Normal thought process present Thought content: Yes Normal thought content present Insight: Good insight present (Psych) Judgement: Good judgement present (Psych) DS: Data Data Completed and Pending Labs on day of discharge: Labs from last 24 hours 08/07/21 08/07/21 08/07/21 08:06 08:06 08:06 WBC 13.2 H RBC 4.15 L Hgb 13.6 Hct 40.6 MCV 97.8 MCH 32.8 MCHC 33.5 RDW 13.5 Plt Count 262 MPV 11.0 H Immature Gran % (Auto) 0.7 H Neut % (Auto) 68.9 Lymph % (Auto) 20.4 [place] % (Auto) 7.3 Eos % (Auto) 2.2 Baso % (Auto) 0.5 Lymph # (Auto) 2.69 [place] # (Auto) 1.0 H Eos # (Auto) 0.3 Baso # (Auto) 0.1 Abs Immat Gran (auto) 0.09 H Absolute Neuts (auto) 9.1 H Absolute Nucleated RBC 0.0 Nucleated RBC % 0.0 RPR Pending Blood Type O Positive Antibody Screen Negative Discharge Plan Discharge Attending physician on discharge: Héctor Carrion Discharging Clinician: Héctor Carrion Anticipated Discharge Date/Time: 08/08/21 09:00 Patient Disposition: Home, Self-Care Activity: may shower, unlimited and may drive after 2 weeks Diet: as tolerated and regular Wound Care Instructions: follow printed instructions Disch
--- NOTE | 2021-08-08 09:03 | PM.OBPNVD ---
OB - PN: Subj Subjective Date/time seen: 08/08/21 09:03 Patient comments: no complaints, pain well controlled, tolerating diet and flatus present [place] baby status: doing well and nursing well feeding status: exclusively breast feeding OB - PN: Obj Data Labs CBC & Chem 7: 08/08/21 03:17 Labs: Laboratory Results - last 24 hr 08/07/21 08/08/21 08:06 03:17 Hgb 12.9 Hct 38.6 Blood Type O Positive Antibody Screen Negative OB - PN A/P Assessment and Plan (1) Term delivered: Code(s): O80 - Encounter for full-term uncomplicated delivery Status: Acute Time Spent With Patient Time: Total time spent is greater than 50% in coordination of care (as documented) at patient's floor/unit and/or counseling patient: Review of Systems Review of Systems: All systems reviewed & are unremarkable except as noted in HPI and below Exam Const: General: comfortable, no acute distress and alert Chest: Breast/axilla inspection: normal inspection of the breasts Resp: Effort & Inspection: normal respiratory effort Cardio: Rate: regular rate GI: GI Palp: Yes Soft to palpation Auscultation: normal bowel sounds : External Female Exam: normal external appearance Bimanual exam- vagina & uterus: non-tender Psych: Appearance: grossly normal Affect: normal affect Attitude: cooperative Thought content: Yes Normal thought content present Judgement: Good judgement present (Psych)
[2021-08-08 11:00] VITALS: BP 105/60; PULSE 68; RESP 18; TEMP 36.6; O2SAT 99
[2021-08-08] MEDS: MULTIVIT/MIN/PREN/FOL AC/IRON TABLET 1 TAB PO (12:32)
[2021-08-08] MEDS: DOCUSATE SODIUM 100 MG CAPSULE PO (12:33)
--- NOTE | 2021-08-08 14:30 | PC.NURSE ---
PT received discharge instructions per protocol and verbalized understanding through the language line. All questions answered and opportunity for explanations provided. The language line housing relocation was Mandeep and he was very attentive and thorough.
--- NOTE | 2021-08-08 15:15 | PC.NURSE ---
PT discharged to home ambulatory accompanied by spouse and and taken to waiting car. Follow up appts confirmed
[2021-08-10 07:22] LABS: Rapid Plasma Reagin Non-Reactive (NonReactive)
[2021-08-10 09:02] VITALS: BP 117/66; PULSE 79; RESP 20; TEMP 37.2; O2SAT 98
== END 2021-08-08 15:15 | disposition home or self-care (01) | DRG 560 ==
LOC: ANHLDR 12:17 → ANHOB2 14:37
PROVIDERS: Admitting Provider Obstetrics & Gynecology; Visit Provider Obstetrics & Gynecology
DX: O69.81X0 Labor and delivery complicated by cord around neck, without compression, not applicable or unspecified (principal); O76 Abnormality in fetal heart rate and rhythm complicating labor and delivery; Z3A.39 39 weeks gestation of pregnancy; Z37.0 Single live birth
CPT/HCPCS: 36415; 85014; 85018; 85025; 86592; 86850; 86900; 86901; 88307; A9270; J2590

== ENCOUNTER 2022-10-08 18:04 | Emergency (ER) | payer OTHER, SELFPAY ==
[2022-10-08 18:21] VITALS: BP 117/73; PULSE 69; RESP 20; TEMP 37.1; O2SAT 99
--- NOTE | 2022-10-08 18:44 | ED.EAR ---
HPI - Ear Problem General Chief complaint: Ear Stated complaint: right ear pain, 10 weeks Time Seen by Provider: 10/08/22 18:29 History of Present Illness HPI Narrative: Patient is a 32-year-old female here for evaluation of right ear pain for the past 10 days. Patient states that she was diagnosed with flu a 10 days ago and her symptoms began afterwards. Also notes muffled hearing. Her cough, congestion and sore throat have improved but the ear pain has remained. Denies any fevers, nausea, vomiting, pain behind the ear. Related Data Home Medications Medication Instructions Recorded Confirmed calcium carbonate 600 mg-vitamin 1 tablet PO DAILY 02/19/21 07/09/21 D3 10 mcg (400 unit) tablet Allergies Allergy/AdvReac Type Severity Reaction Status Date / Time latex Allergy Rash Verified 10/08/22 18:24 Review of Systems Review of Systems: Gen.: Denies fevers or chills Eyes: Denies eye pain or visual change ENT: Reports right ear pain. Respiratory: Denies shortness of breath or cough CV: Denies chest pain or palpitations GI: Denies abdominal pain nausea, emesis or diarrhea denies burning, urgency, frequency or hematuria Musculoskeletal: Denies back pain or muscle pain Neuro: Denies numbness, tingling, weakness or focal weakness Skin: Denies rash Except as documented, all other systems reviewed and negative [facility] Past Medical History Medical History (Updated 10/08/22 @ 18:44 by Juana Donnelly PA-C) Blood testosterone increased compared with prior measurement History of miscarriage No pertinent past medical history PCOS (polycystic ovarian syndrome) Vaginal delivery 04/08/20171408 lbs.2 oz.MVaginalFull Term BirthNonebaby boy born in [facility], Surgical History Surgical History No pertinent past surgical history Family History Family History Father Hypertension Social History Social History (Updated 08/07/21 @ 08:49 by Héctor Carrion MD) Smoking status: Never smoker Second hand tobacco smoke exposure: No Alcohol intake: never Substance use: never Substance use type: does not use Gender identity (if verbalized by the patient): Female Sexual Orientation (if Verbalized by the Patient): Straight or Heterosexual Spiritual care concerns: No Agree to blood products: Yes Exam Narrative: APPEARANCE: Well appearing, no pain in distress, well-nourished. Head: Normocephalic and atraumatic. EYES: PERRLA/EOMI, conjunctivae clear NOSE: No nasal drainage EARS: Right TM is bulging. No mastoid tenderness. THROAT: Oropharynx is clear. Mucous membranes are moist. NECK: Supple. No adenopathy, no masses. RESPIRATORY: Airway patent, respirations nonlabored. Clear to auscultation bilaterally, no rales, rhonchi, wheezing. CARDIOVASCULAR: Regular rate and rhythm without murmurs, rubs, or gallops. ABDOMINAL: Normoactive bowel sounds. Soft, nontender, nondistended. No rebound tenderness or guarding. MUSCULOSKELETAL: Extremities are warm and well-perfused. Moves all extremities well. No edema. NEURO: Normal speech. No focal neurologic deficits. SKIN: Skin is warm and dry. No rashes. PSYCHIATRIC: Normal affect/mood. Course Vital Signs Vital signs: Vital Signs Temperature 98.8 F 10/08/22 18:21 Pulse Rate 69 10/08/22 18:21 Respiratory Rate 20 10/08/22 18:21 Blood Pressure 117/73 10/08/22 18:21 Pulse Oximetry 99 10/08/22 18:21 Oxygen Delivery Room Air 10/08/22 18:21 Temperature 98.8 F 10/08/22 18:21 Pulse Rate 69 10/08/22 18:21 Respiratory Rate 20 10/08/22 18:21 Blood Pressure 117/73 10/08/22 18:21 Pulse Oximetry 99 10/08/22 18:21 Oxygen Delivery Room Air 10/08/22 18:21 Medical Decision Making MDM Narrative Medical decision making narrative: 32-year-old female here for evaluation of right ear pain x 10 days. TM ap
== END 2022-10-08 19:12 | disposition home or self-care (01) ==
LOC: ANHED 18:49
PROVIDERS: Emergency Provider Physician Assistant
DX: H66.91 Otitis media, unspecified, right ear (principal); E28.2 Polycystic ovarian syndrome
CPT/HCPCS: 99283

== ENCOUNTER 2022-10-20 15:51 | Outpatient (CLI) | payer OTHER, SELFPAY ==
--- NOTE | ~2022-10-20 | US_ITS ---
Pelvic ultrasound. Clinical History: First trimester , routine care Technique: Realtime transabdominal and transvaginal scanning of the pelvis was performed. Color flow Doppler and Doppler spectral analysis were performed. Findings: The uterus is anteverted, and contains an intrauterine gestation. Carlos-rump length of 2.8 cm corresponds to an estimated gestational age of 9 weeks 4 days. heart rate is 167 bpm. Cervix is closed. The right ovary measures 2.1 x 2.7 x 1.4 cm. No significant right ovarian or adnexal mass is seen. The left ovary measures 2.6 x 2.1 x 3.3 cm. No significant left ovarian or adnexal mass is seen. Vascular flow present in both ovaries on Doppler spectral analysis. There is no evidence of free fluid in the cul de sac. Impression: Live intrauterine gestation with estimated gestational age of 9 weeks 4 days. heart rate is 167 bpm. Reviewed, dictated and finalized at [facility]. CTOR OF PHYSICAL EDUCATION Impression: Live intrauterine gestation with estimated gestational age of 9 weeks 4 days. F etal heart rate is 167 bpm.
== END 2022-10-20 15:52 | disposition home or self-care (01) ==
PROVIDERS: PCP Physician Assistant; Visit Provider Physician Assistant
DX: Z34.91 Encounter for supervision of normal pregnancy, unspecified, first trimester (principal)
CPT/HCPCS: 76801

== ENCOUNTER 2023-02-04 08:30 | Observation (INO) | payer OTHER, SELFPAY ==
[2023-02-04] VITALS (8 sets, daily range): BP systolic 90–112; BP diastolic 47–63; PULSE 64–86; BMI 27.8
--- NOTE | ~2023-02-04 | US_ITS ---
EXAMINATION: US OB follow up DATE: 02/04/2023 10:05 INDICATION: Placenta check for abruption. TECHNIQUE: Real-time transabdominal obstetric ultrasound. FINDINGS: Comparison ultrasound dated 10/20/2022 There is a single living fetus in vertex presentation. The placenta is posterior without placenta pr evia. No abnormality of the placenta identified. cardiac activity and movement is noted with a heart rate of 144 beats per minute. T he amniotic fluid index is normal measuring 17.7 cm. The following biometric data were obtained: BPD: 61mm corresponds to gestational age 24 weeks 6 days. Head circumference: 226mm corresponds to gestational age 24 weeks 4 days. Abdominal circumference: 207mm corresponds to gestational age 25 weeks 2 days. Femur length: 45mm corresponds to gestational age 24 weeks 5 days. Estimated weight: 754grams +/- 113grams, 53.5%.] IMPRESSION: 1. Single living intrauterine in vertex presentation with an estimated gestational age of 24 weeks 5 days by inititial ultrasound. Appropriate interval growth. 2. The placenta is grossly normal, without suggestion of placenta abruption. However, ultrasound is not diagnostic of abruption since acute hemorrhage can be isoechoic to be placenta. Recommend clini elba correlation. 3: Normal GIGI measures 17.7 cm. Reviewed, dictated and finalized at location A. IMPRESSION: 1. Single living intrauterine in vertex presentation with an estimat ed gestational age of 24 weeks 5 days by inititial ultrasound. Appropriate int erval growth. 2. The placenta is grossly normal, without suggestion of placenta abruption. However, ultrasound is not diagnostic of abruption since acute hemorrhage can b e isoechoic to be placenta. Recommend clinical correlation. 3: Normal GIGI measures 17.7 cm.
[2023-02-04 09:35] LABS: Basophils Absolute Auto 0.1 K/mm3 (0.0-0.1); Basophils Percent Auto 0.5 % (0.2-1.2); Eosinophils Absolute Auto 0.3 K/mm3 (0-0.3); Eosinophils Percent Auto 2.3 % (0-4.4); Hematocrit 35.6 % (37.0-47.0); Hemoglobin 11.8 g/dL (12.0-15.0); Immature Granulocyte Absolute 0.05 K/mm3 (0.00-0.031); Immature Granulocyte Percent A 0.4 % (0-0.5); Lymphocytes Absolute Auto 2.18 K/mm3 (0.9-3.2); Lymphocytes Percent Auto 19.6 % (18.3-44.2); Mean Corpuscular HGB Conc 33.1 g/dl (32-36); Mean Corpuscular Hemoglobin 32.7 pg (26-34); Mean Corpuscular Volume 98.6 fl (80-100); Mean Platelet Volume 10.2 fl (7.4-10.4); Monocytes Absolute Auto 0.8 K/mm3 (0.1-0.6); Monocytes Percent Auto 6.8 % (2.6-8.5); Neutrophils Absolute Auto 7.8 K/mm3 (1.3-6.7); Neutrophils Percent Auto 70.4 % (45.5-73.1); Platelet Count Result 285 k/mm3 (150-375); Red Blood Count 3.61 M/mm3 (4.2-5.4); Red Cell Distribution Width 12.9 % (11.5-14.5); White Blood Count 11.2 K/mm3 (4.5-10.0)
[2023-02-04 09:45] LABS: Partial Thromboplastin Time 26.6 SECONDS (22.3-36.8); Prothrombin Time 12.7 Seconds (11.1-14.7)
[2023-02-04 09:46] LABS: Fibrinogen 374 mg/dl (215-510)
--- NOTE | 2023-02-04 10:12 | OBADM ---
This patient, Ina Hidalgo, admitted to the OB room OB Post 116 for observation. Patient/family oriented to hospital policies and general routines including ID bracelet, bed and alarms, visiting hours, pain management, procedures, bathroom and other care routines, personal items, smoking policy, room service/diet, and visiting hours. Patient/Family are encouraged to report perceived risks to care and to ask questions if they do not understand what they are told or what they should do.
[2023-02-04 11:11] LABS: Appearance Urine Clear (Clear); Bilirubin Urine Negative (Negative); Blood Urine Negative (Negative); Color Urine Yellow (Yellow); Glucose Urine UA Negative (Negative); Ketones Urine Negative (Negative); Leukocyte Esterase Ur Negative LEU/UL (Negative); Nitrate Urine Negative (Negative); Protein Urine Negative (Negative); Specific Grav Ur 1.005 (1.001-1.035); Urobilinogen Urine 0.2 mg/dL (<2.0)
[2023-02-04 11:31] LABS: Add Urine Microscopic? NO
--- NOTE | 2023-02-23 11:04 | PM.OBTRLD ---
OB - Triage/Final Diagnosis Visit Information Comments/Additional reasons for admission: I have assessed the risk for this patient, Ina Hidalgo, and determined that she would benefit from observation care. Evaluation Laboratory results: Laboratory Tests 02/04/23 02/04/23 09:20 11:00 WBC 11.2 H RBC 3.61 L Hgb 11.8 L Hct 35.6 L MCV 98.6 MCH 32.7 MCHC 33.1 RDW 12.9 Plt Count 285 MPV 10.2 Immature Gran % (Auto) 0.4 Neut % (Auto) 70.4 Lymph % (Auto) 19.6 [place] % (Auto) 6.8 Eos % (Auto) 2.3 Baso % (Auto) 0.5 Lymph # (Auto) 2.18 [place] # (Auto) 0.8 H Eos # (Auto) 0.3 Baso # (Auto) 0.1 Abs Immat Gran (auto) 0.05 H Absolute Neuts (auto) 7.8 H Absolute Nucleated RBC 0.0 Nucleated RBC % 0.0 PT 12.7 INR 1.0 APTT 26.6 Fibrinogen 374 Urine Color Yellow Urine Appearance Clear Urine pH 8.0 Ur Specific [place] 1.005 Urine Protein Negative Urine Glucose (UA) Negative Urine Ketones Negative Ur Blood (Man) Negative Urine Nitrate Negative Urine Bilirubin Negative Urine Urobilinogen 0.2 Leukocyte Esterase Rfl Negative Blood Type O Positive Antibody Screen Negative KB Hemoglobin Negative Final Diagnosis (1) Spotting affecting in second trimester: Code(s): O26.852 - Spotting complicating , second trimester Status: Acute
== END 2023-02-04 12:31 | disposition home or self-care (01) ==
PROVIDERS: Admitting Provider Obstetrics & Gynecology; PCP Physician Assistant; Visit Provider Obstetrics & Gynecology
DX: O26.852 Spotting complicating pregnancy, second trimester (principal); Z3A.24 24 weeks gestation of pregnancy
CPT/HCPCS: 36415; 76816; 81003; 85025; 85384; 85460; 85610; 85730; 86850; 86900; 86901; G0378; G0379

== ENCOUNTER 2023-07-21 08:35 | Emergency (ER) | payer OTHER, SELFPAY ==
[2023-07-21 08:41] VITALS: BP 117/73; PULSE 93; RESP 16; TEMP 36.4; O2SAT 99
--- NOTE | 2023-07-21 10:32 | ED.GENADULT ---
HPI - General Adult General Chief complaint: Unspecified Stated complaint: pus from tonils and nausea Time Seen by Provider: 07/21/23 09:52 History of Present Illness HPI narrative: 33 y/o F reports for evaluation for tonsil swelling and food getting stuck in her tonsils x2-3 months. Pt states for the past 2 to 3 months, she feels as though food continuously gets stuck in her tonsils after she eats and she has to clean it out with a Q-tip. She reports malodorous breath when this occurs. She has not been evaluated for this before, however does report that she received a round of antibiotics 2 months ago that were sent to her from her [place] in [facility]. She states that she noted some improvement after the antibiotics, however the symptoms returned. LMP 07/13. She denies dysphagia or odynophagia, abdominal pain, chest pain or shortness of breath, fever, sore throat, cough, congestion, otalgia, dental pain. She does report nausea since the onset of symptoms but denies vomiting or diarrhea. She denies dysuria or hematuria, urinary urgency. She does report urinary frequency, but believes this is due to her drinking a lot of water. Related Data Allergies Allergy/AdvReac Type Severity Reaction Status Date / Time latex Allergy Rash Verified 07/21/23 08:37 Review of Systems Review of Systems: CONSTITUTIONAL: Denies fever, chills EYES: Denies visual changes, redness, or discharge. ENT: See HPI CARDIOVASCULAR: Denies chest pain, palpitations, or edema. RESPIRATORY: Denies cough or dyspnea. GASTROINTESTINAL: Denies abdominal pain, nausea, vomiting, or diarrhea. GENITOURINARY: Denies dysuria or hematuria. SKIN: Denies rash or itching. MUSCULOSKELETAL: Denies back pain, joint pain, or myalgia. NEUROLOGIC: Denies headache, numbness, dizziness, or weakness. PSYCHIATRIC: Denies anxiety or depression. [facility] Past Medical History Medical History Blood testosterone increased compared with prior measurement History of miscarriage No pertinent past medical history PCOS (polycystic ovarian syndrome) Vaginal delivery 04/08/20171408 lbs.2 oz.MVaginalFull Term BirthNonebaby boy born in [facility], Surgical History Surgical History No pertinent past surgical history Family History Family History Father Hypertension Social History Social History Smoking status: Never smoker Second hand tobacco smoke exposure: No Alcohol intake: never Substance use: never Substance use type: does not use Living arrangements: with family Occupation/Education: unemployed Gender identity (if verbalized by the patient): Female Sexual Orientation (if Verbalized by the Patient): Straight or Heterosexual Spiritual care concerns: No Agree to blood products: Yes Exam Narrative: GENERAL: Well-appearing, in no acute distress. Patient resting comfortably in exam bed. She is pleasant and conversational. HEAD: Normocephalic EYES: PERRLA ENT: Nares clear. Mucous membranes moist. Posterior pharynx without tonsillar hypertrophy, tonsils equal in size. Mild erythema to posterior pharynx. Bilateral tonsils with tonsillar crypts. Uvula midline. No exudates. Tolerating secretions. No trismus. NECK: Supple. CHEST: No respiratory distress. Clear to auscultation, no adventitious breath sounds. HEART: Regular rate and rhythm. No murmur heard. Normal peripheral pulses. ABDOMEN: Soft, nontender, normal active bowel sounds. No CVA tenderness. EXTREMITIES: Normal range of motion. No edema. SKIN: Warm, dry, no rash. NEURO: No focal deficits. Alert and oriented x3. PSYCH: Normal mood and affect. Course Vital Signs Vital signs: Vital Signs Temperature 97.6 F 07/21/23 08:41 Pulse Rate 93 07/21/23 08:41
[2023-07-21 10:59] LABS: Basophils Absolute Auto 0.1 K/mm3 (0.0-0.1); Basophils Percent Auto 0.5 % (0.2-1.2); Eosinophils Absolute Auto 0.3 K/mm3 (0-0.3); Eosinophils Percent Auto 2.5 % (0-4.4); Hematocrit 45.1 % (37.0-47.0); Hemoglobin 14.9 g/dL (12.0-15.0); Immature Granulocyte Absolute 0.04 K/mm3 (0.00-0.031); Immature Granulocyte Percent A 0.4 % (0-0.5); Lymphocytes Absolute Auto 3.24 K/mm3 (0.9-3.2); Lymphocytes Percent Auto 28.7 % (18.3-44.2); Mean Corpuscular Hemoglobin 31.6 pg (26-34); Mean Corpuscular Volume 95.6 fl (80-100); Mean Platelet Volume 9.6 fl (7.4-10.4); Monocytes Absolute Auto 0.7 K/mm3 (0.1-0.6); Monocytes Percent Auto 6.1 % (2.6-8.5); Neutrophils Percent Auto 61.8 % (45.5-73.1); Platelet Count Result 345 k/mm3 (150-375); Red Blood Count 4.72 M/mm3 (4.2-5.4); Red Cell Distribution Width 14.2 % (11.5-14.5); White Blood Count 11.3 K/mm3 (4.5-10.0)
[2023-07-21 11:00] LABS: Appearance Urine Clear (Clear); Bilirubin Urine Negative (Negative); Blood Urine Negative (Negative); Color Urine Yellow (Yellow); Glucose Urine UA Negative (Negative); Ketones Urine Negative (Negative); Leukocyte Esterase Ur Negative LEU/UL (Negative); Nitrate Urine Negative (Negative); Protein Urine Negative (Negative); Specific Grav Ur 1.009 (1.001-1.035); Urobilinogen Urine 0.2 mg/dL (<2.0); pH Urine 6.5 (5.0-9.0)
[2023-07-21 11:01] LABS: Add Urine Microscopic? NO
[2023-07-21 11:06] LABS: Alanine Aminotransferase 26 U/L (6-35); Albumin Level 4.7 g/dL (3.5-5.1); Alkaline Phosphatase 66 U/L (38-126); Anion Gap 9 mmol/L (8-16); Aspartate Amino Transferase 31 U/L (14-36); Bilirubin,Total 1.4 mg/dL (0.2-1.3); Blood Urea Nitrogen 12 mg/dL (7-17); Calcium 9.3 mg/dL (8.4-10.2); Carbon Dioxide 24 mmol/L (22-30); Chloride 104 mmol/L (98-107); Estimated CRCL calculation 95 ml/min; Estimated Glomerular Filt Rate > 60; Glucose 95 mg/dL (65-110); Sodium 137 mmol/L (137-145)
[2023-07-21 11:15] LABS: Strep Group A RT-PCR NOT DETECTED (Negative)
[2023-07-21 11:19] LABS: Monoscreen Negative (Negative); Negative Monotest Control Negative (Negative); Positive Monotest Control Positive (Positive)
[2023-07-21 11:27] LABS: Influenza A QL RT-PCR Negative (Negative); Influenza B QL RT-PCR Negative (Negative); SARS-CoV-2 RNA PCR Negative (Negative)
[2023-07-21] MEDS: ONDANSETRON HCL ODT 4 MG TABLET PO (12:21)
== END 2023-07-21 12:28 | disposition home or self-care (01) ==
PROVIDERS: Emergency Provider Physician Assistant; PCP Physician Assistant
DX: J35.8 Other chronic diseases of tonsils and adenoids (principal); Z20.822 Contact with and (suspected) exposure to COVID-19; E28.2 Polycystic ovarian syndrome
CPT/HCPCS: 36415; 80053; 81003; 81025; 85025; 86308; 87636; 87651; 96372; 99283; A9270; J1100

== ENCOUNTER 2023-09-05 08:19 | Emergency (ER) | payer OTHER, SELFPAY ==
[2023-09-05 08:31] VITALS: BP 111/77; PULSE 78; RESP 16; TEMP 36.8; O2SAT 99
[2023-09-05 10:12] LABS: Strep Group A RT-PCR NOT DETECTED (Negative)
--- NOTE | 2023-09-05 11:42 | ED.GENADULT ---
HPI - General Adult General Chief complaint: Ear Stated complaint: throat and ear infection Time Seen by Provider: 09/05/23 08:29 History of Present Illness HPI narrative: Patient is a 33-year-old female who presents ER with sinus congestion and a sore throat. Ongoing over last 3 days. No fevers or chills. Mild discomfort moving into her right ear. No difficulty hearing. Similar symptoms when she had strep previously. History obtained through interpretive services. Related Data Allergies Allergy/AdvReac Type Severity Reaction Status Date / Time latex Allergy Rash Verified 09/05/23 08:20 Review of Systems Constitutional: Constitutional: Denies chills and Denies fever(s) ENT: Reports nasal congestion and Reports sore throat Comments: Right ear pain PMFSH Past Medical History Medical History Blood testosterone increased compared with prior measurement History of miscarriage No pertinent past medical history PCOS (polycystic ovarian syndrome) Vaginal delivery 04/08/20171408 lbs.2 oz.MVaginalFull Term BirthNonebaby boy born in [facility], Surgical History Surgical History No pertinent past surgical history Family History Family History Father Hypertension Social History Social History Smoking status: Never smoker Second hand tobacco smoke exposure: No Alcohol intake: never Substance use: never Substance use type: does not use Living arrangements: with family Occupation/Education: unemployed Gender identity (if verbalized by the patient): Female Sexual Orientation (if Verbalized by the Patient): Straight or Heterosexual Spiritual care concerns: No Agree to blood products: Yes Exam Narrative: GENERAL: Well-appearing, well-nourished, and in no acute distress. HEAD: Normocephalic, atraumatic. ENT: Mucous membranes moist. Normal TMs bilaterally. No tonsillar hypertrophy or exudate. Uvula midline and nonedematous. NECK: Supple. CHEST: Clear to auscultation. No respiratory distress. HEART: Regular rate and rhythm. Normal peripheral pulses. EXTREMITIES: Normal range of motion. No edema. NEURO: Alert and oriented x3. PSYCH: Normal mood and affect. Course Course Emergency Course: Strep negative. Supportive care for home. Vital Signs Vital signs: Vital Signs Temperature 98.2 F 09/05/23 08:31 Pulse Rate 78 09/05/23 08:31 Respiratory Rate 16 09/05/23 08:31 Blood Pressure 111/77 09/05/23 08:31 Pulse Oximetry 99 09/05/23 08:31 Oxygen Delivery Room Air 09/05/23 08:31 Temperature 98.2 F 09/05/23 08:31 Pulse Rate 80 09/05/23 12:00 Respiratory Rate 18 09/05/23 12:00 Blood Pressure 116/80 09/05/23 12:00 Pulse Oximetry 99 09/05/23 12:00 Oxygen Delivery Room Air 09/05/23 08:31 Medical Decision Making Vital Signs Vital Signs: Vital Signs Temperature 98.2 F 09/05/23 08:31 Pulse Rate 78 09/05/23 08:31 Respiratory Rate 16 09/05/23 08:31 Blood Pressure 111/77 09/05/23 08:31 Pulse Oximetry 99 09/05/23 08:31 Oxygen Delivery Room Air 09/05/23 08:31 Temperature 98.2 F 09/05/23 08:31 Pulse Rate 80 09/05/23 12:00 Respiratory Rate 18 09/05/23 12:00 Blood Pressure 116/80 09/05/23 12:00 Pulse Oximetry 99 09/05/23 12:00 Oxygen Delivery Room Air 09/05/23 08:31 Lab Data Labs: Lab Results 09/05/23 Range/Units 09:34 Group A Strep (PCR) Not detected (Negative) Discharge Plan Discharge Clinical Impression: Pharyngitis Patient Disposition: Home, Self-Care Condition: Stable Instructions: Pharyngitis (ED) Additional Instructions: Return to the ER if he cannot breathe, he cannot swallow, rehab additional concerns. Your strep dk
[2023-09-05 12:00] VITALS: BP 116/80; PULSE 80; RESP 18; O2SAT 99
== END 2023-09-05 12:00 | disposition home or self-care (01) ==
PROVIDERS: Emergency Provider Emergency Medicine; PCP Physician Assistant
DX: J02.9 Acute pharyngitis, unspecified (principal)
CPT/HCPCS: 87651; 99283

== ENCOUNTER 2023-10-11 00:31 | Day surgery (SDC) | payer OTHER, SELFPAY ==
[2023-10-04 13:28] VITALS: BMI 28.6
--- NOTE | 2023-10-04 13:28 | PC.NURSE ---
Report to the Outpatient Waiting Room, entrance under the green pavilion located off [facility], at time _0730_ on date _10/11/23_. Planned Procedure Time: _0930_. Time changes happen often and if your time is changed the preop area will call you the afternoon before. - You and your visitor will be asked to self-screen and do not enter if you have any COVID symptoms. - A mask is optional within the hospital at this time. Patients may have clear liquids (water, carbonated beverages, clear teas, apple juice) until 3 hours prior to surgery (0630 AM) with a maximum of 20 ounces. - No food from midnight until time of surgery Take the following medications with a SIP of water the morning of surgery: _NONE_ DO NOT STOP ANY OF YOUR OTHER PRESCRIPTION MEDICATIONS PRIOR TO SURGERY ?EXCEPT THE FOLLOWING Medications to discontinue per physician ___NONE___, Date to take last dose Please no make-up, nail citizen of the [place], hairspray, perfume, deodorant, or body powder the day of surgery. No jewelry (including any body piercings) or valuables the day of surgery, leave them at home. Please take a shower or bath the night before, or the morning of, surgery with an antibacterial soap. Wear comfortable, loose fitting clothing. - Jewelry must be removed prior to entering the operating room. Rings and piercings that are not removed may be cut off. - The hospital will not accept responsibility for valuables. - Please leave all valuables, including medications, at home the day of surgery. If you are going home after surgery, a licensed m48/m60 tank driver must drive you home. - NO public transportation without another adult if you receive anesthesia. - We recommend that an adult stay with you for 24 hours following discharge. - We also recommend that you do not drive, make important decision, drink alcoholic beverages, or take any drugs that were not prescribed by your health care provider for at least 24 hours after your discharge time. Follow any additional instructions given to you from your surgeon. If you or anyone in your household have experienced Covid symptoms in the past week, please notify your surgeon or the nurse liaison at the phone number below for possible testing. Instructions given to _PATIENT_and asked if any additional questions and then verbalized understanding. Patient advised to call surgeon office or pre surgery nurse liaison [phone] if any additional questions.
--- NOTE | 2023-10-10 12:17 | PM.IMHP ---
H&P: HPI History of Present Illness Date/Time: 10/10/23 12:17 Chief Complaint: snoring adenoid hypertrophy recurrent tonsillitis chronic tonsillitis tonsillar hypertrophy tonsil stones halitosis Narrative: planned procedure Review of Systems Review of Systems: All systems reviewed & are unremarkable except as noted in HPI and below PMFSH Past Medical History Medical History Blood testosterone increased compared with prior measurement History of miscarriage No pertinent past medical history PCOS (polycystic ovarian syndrome) Vaginal delivery 04/08/20171408 lbs.2 oz.MVaginalFull Term BirthNonebaby boy born in [facility], Surgical History Surgical History No pertinent past surgical history Family History Family History Father Hypertension Social History Social History Smoking status: Never smoker Second hand tobacco smoke exposure: No Alcohol intake: never Substance use: never Substance use type: does not use Living arrangements: with family Occupation/Education: unemployed Gender identity (if verbalized by the patient): Female Sexual Orientation (if Verbalized by the Patient): Straight or Heterosexual Spiritual care concerns: No Agree to blood products: Yes Meds Home Medications and Allergies Home Medications Medication Instructions Recorded Confirmed Type No Home Medications 10/04/23 10/04/23 History Allergies Allergy/AdvReac Type Severity Reaction Status Date / Time No Known Allergies Allergy Verified 10/04/23 14:09 Exam Narrative: chronic appearing tonsils large adenoid Assessment and Plan Assessment and plan (1) Halitosis: Code(s): R19.6 - Halitosis Status: Acute Assessment and Plan: plan or tonsillectomy adenoidectomy.? Risks were discussed including change in swallow change in taste which could be permanent.? Postoperative bleeding infection .? Postoperative bleeding risk of about 5%.? Damage to any structure of the clavicle by myself.? Damage to any structure during the induction and remains of Anesthesia.? 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 Inherent risk of narcotic use.? Need for time off work and time off school up to 2 weeks.? Patient voiced understanding of these risks and agreed. (2) Tonsil stone: Code(s): J35.8 - Other chronic diseases of tonsils and adenoids Status: Acute (3) Tonsillar hypertrophy: Code(s): J35.1 - Hypertrophy of tonsils Status: Acute (4) Recurrent tonsillitis: Code(s): J03.91 - Acute recurrent tonsillitis, unspecified Status: Acute (5) Chronic tonsillitis: Code(s): J35.01 - Chronic tonsillitis Status: Acute (6) Snoring: Code(s): R06.83 - Snoring Status: Acute (7) Adenoid hypertrophy: Code(s): J35.2 - Hypertrophy of adenoids Status: Acute
[2023-10-11] VITALS (9 sets, daily range): BP systolic 99–121; BP diastolic 57–78; PULSE 57–81; RESP 12–18; TEMP 36.1–36.6; O2SAT 99–100
--- NOTE | 2023-10-11 07:16 | WPDHPUPDATE1 ---
History and Physical Update Update Date/Time: 10/11/23 07:16 History and Physical has been reviewed, including an updated exam of the patient. There are NO changes in the patient's condition. Risks, benefits, and alternatives have been discussed and questions answered. Patient agrees to proceed with procedure.
--- NOTE | 2023-10-11 08:10 | SUR.PREOP ---
outbound sales agent used to check patient in and confirm consent. reference #[id number]
--- NOTE | 2023-10-11 08:33 | P.PNAN_ITS ---
Anes - Initial Pre Proc Eval Procedure: Operation Date: 10/11/23 10:00 Proposed Procedures p Tonsillectomy And Adenoidectomy - Rg Portillo MD Date/Time: 10/11/23 08:33 Surgeon: Rg Portillo MD Pre Op Diagnosis: adenoid hypertrophy, tonsillar hypertrophy Patient Data Age: 33 Gender: F Height: 1.55 m Weight: 68.7 kg Allergies Allergy/AdvReac Type Severity Reaction Status Date / Time No Known Allergies Allergy Verified 10/04/23 14:09 Home Medications Medication Instructions Recorded Confirmed Type No Home Medications 10/04/23 10/11/23 History Patient hx anesthesia problems: none Family hx anesthesia problems: none Results Review: All pre-operative results and documents have been reviewed as part of the pre- operative evaluation. [facility] Past Medical History Medical History Blood testosterone increased compared with prior measurement History of miscarriage No pertinent past medical history PCOS (polycystic ovarian syndrome) Vaginal delivery 04/08/20171408 lbs.2 oz.MVaginalFull Term BirthNonebaby boy born in [facility], Surgical History Surgical History No pertinent past surgical history Family History Family History Father Hypertension Social History Social History Smoking status: Never smoker Second hand tobacco smoke exposure: No Alcohol intake: never Substance use: never Substance use type: does not use Living arrangements: with family Occupation/Education: unemployed Gender identity (if verbalized by the patient): Female Sexual Orientation (if Verbalized by the Patient): Straight or Heterosexual Spiritual care concerns: No Agree to blood products: Yes Anes - Eval Final PreProcedure Day of Procedure 10/11/23 08:33 Patient weight: overweight Heart: regular rate and rhythm Lungs: clear to auscultation Airway: Mallampati scale class II Neurological: alert and oriented Last oral intake: >/= 8 hours ASA classification: II Emergent: no Anesthetic plan: proceed Anesthesia type and monitoring: general ETT and standard monitoring Results Review: All pre-operative results and documents have been reviewed as part of the pre- operative evaluation. Informed Consent: The patient's anesthetic plan and its attendant risks and benefits were discussed with the patient/family/POA. Questions were solicited and answers pr ovided to the satisfaction of the patient/family/POA.
[2023-10-11] MEDS: LACTATED RINGERS 1,000 ML 30 ML IV CONT (08:37)
[2023-10-11] MEDS: ACETAMINOPHEN 500 MG TABLET 1000 MG PO (08:47)
--- NOTE | 2023-10-11 11:37 | W.PM.PROC2 ---
Procedure Note - Detailed Date of Procedure 10/11/23 Pre-op Diagnosis adenoid hypertrophy, tonsillar hypertrophy Post-op Diagnosis Same Procedure Performed tonsillectomy Surgeon Rg Portillo MD Anesthesia General Indications see above Findings endophytic scarred in tonsils minimal to no adenoid tissue Description of Procedure patient identified consent verified preop. Patient brought to the operating room. Time-out performed. General anesthesia induced endotracheal tube secured. Patient prepped draped position procedure confirmed 2nd time-out performed. McIvor mouth gag inserted to reveal tonsils described above. They were removed bilaterally in the extracapsular plane using Bovie electrocautery at a setting of 8. Any bleeding was controlled with Bovie suction electrocautery setting of 10 bipolar electrocautery setting of 8. In-between tonsils McIvor mouth gag was lowered to allow blood flow to return to the tongue. After tonsils were out the adenoids were viewed non-existent. After tonsils were out the McIvor mouth gag was lowered for 30 seconds reopened reveal no further bleeding. Total blood loss 2 cc. Care the patient given Anesthesiology. I performed all dictated portions of procedure. No complications. Patient taken to PACU. Estimated Blood Loss 2 Drains No Packing No Pathology Yes Complications No immediate complications Condition Stable Disposition PACU [facility] Billing Surgery - Charge Forward: Surgery Billing
[2023-10-11] MEDS: fentaNYL CITRATE INJ (*CRX) 100 MCG/2 ML VIAL 25 MCG IV PUSH ×6 (11:38→11:54)
== END 2023-10-11 13:07 | disposition home or self-care (01) ==
PROVIDERS: PCP Physician Assistant; Visit Provider Otolaryngology
PROC: (CPT 42826; principal; 2023-10-11 10:00)
DX: J35.01 Chronic tonsillitis (principal); A42.89 Other forms of actinomycosis; R19.6 Halitosis; R06.83 Snoring
CPT/HCPCS: 42826; 88302; A9270; J0330; J1100; J2250; J2405; J2704; J3010; J7120

== ENCOUNTER 2024-03-17 09:29 | Emergency (ER) | payer OTHER, SELFPAY ==
[2024-03-17 09:31] VITALS: BP 123/69; PULSE 70; RESP 18; TEMP 36.4; O2SAT 100
[2024-03-17 10:22] LABS: Basophils Absolute Auto 0.1 K/mm3 (0.0-0.1); Basophils Percent Auto 0.9 % (0.2-1.2); Eosinophils Absolute Auto 0.3 K/mm3 (0-0.3); Eosinophils Percent Auto 2.7 % (0-4.4); Hemoglobin 13.5 g/dL (12.0-15.0); Immature Granulocyte Absolute 0.02 K/mm3 (0.00-0.031); Immature Granulocyte Percent A 0.2 % (0-0.5); Lymphocytes Absolute Auto 2.09 K/mm3 (0.9-3.2); Lymphocytes Percent Auto 22.3 % (18.3-44.2); Mean Corpuscular HGB Conc 33.8 g/dl (32-36); Mean Corpuscular Hemoglobin 31.9 pg (26-34); Mean Corpuscular Volume 94.6 fl (80-100); Mean Platelet Volume 9.6 fl (7.4-10.4); Monocytes Absolute Auto 0.7 K/mm3 (0.1-0.6); Monocytes Percent Auto 7.2 % (2.6-8.5); Neutrophils Absolute Auto 6.3 K/mm3 (1.3-6.7); Neutrophils Percent Auto 66.7 % (45.5-73.1); Platelet Count Result 391 k/mm3 (150-375); Red Blood Count 4.23 M/mm3 (4.2-5.4); Red Cell Distribution Width 12.2 % (11.5-14.5); White Blood Count 9.4 K/mm3 (4.5-10.0)
[2024-03-17] MEDS: SODIUM CHLORIDE 0.9% IV 1,000 ML 999 ML IV CONT (10:22)
[2024-03-17 10:37] LABS: Alanine Aminotransferase 34 U/L (6-35); Albumin Level 4.5 g/dL (3.5-5.1); Alkaline Phosphatase 70 U/L (38-126); Anion Gap 7 mmol/L (4-12); Aspartate Amino Transferase 24 U/L (14-36); Bilirubin,Total 0.9 mg/dL (0.2-1.3); Blood Urea Nitrogen 12 mg/dL (7-17); CRP < 0.5 mg/dL (<1.0); Calcium 9.4 mg/dL (8.4-10.2); Carbon Dioxide 25 mmol/L (22-30); Chloride 106 mmol/L (98-107); Estimated CRCL calculation 94 ml/min; Estimated Glomerular Filt Rate > 60; Glucose 136 mg/dL (65-110); Potassium 3.6 mmol/L (3.4-5.0); Sodium 138 mmol/L (137-145)
[2024-03-17 10:38] LABS: Appearance Urine Cloudy (Clear); Bacteria Urine Rare /hpf; Bilirubin Urine Negative (Negative); Blood Urine Negative (Negative); Color Urine Yellow (Yellow); Glucose Urine UA Negative (Negative); Ketones Urine Negative (Negative); Leukocyte Esterase Ur 1+ LEU/UL (Negative); Nitrate Urine Negative (Negative); Non Pathogenic Casts 0-2; Protein Urine Negative (Negative); RBC Urine 0-2 /hpf (0-2); Specific Grav Ur 1.008 (1.001-1.035); Squamous Epithelial Cell Urine Moderate /hpf (Few); Urobilinogen Urine 0.2 mg/dL (<2.0)
[2024-03-17 10:39] LABS: Add Urine Microscopic? YES
--- NOTE | 2024-03-17 10:45 | ED.GENADULT ---
HPI - General Adult General Chief complaint: Unspecified Stated complaint: Joint Pain Time Seen by Provider: 03/17/24 09:59 History of Present Illness HPI narrative: 33-year-old female presenting to the emergency department for evaluation for increased generalized body aches and joint pain that is been ongoing for approximately last 10 days. Patient denies any significant underlying past medical history. Patient states she does not work outside and works at home. Patient states she has not been doing any excessive difficult labor over last few days. Patient denies any other symptoms associated. Patient denies any chest pain shortness of breath nausea vomiting diarrhea. Patient denies any rash. Patient denies any prior history similar aches. Patient did report cramping in her posterior calves and into her feet as well. Patient is Hebrew-speaking and online mobile developer was used for the exam Related Data Allergies Allergy/AdvReac Type Severity Reaction Status Date / Time No Known Allergies Allergy Verified 10/11/23 09:45 Review of Systems Review of Systems: All systems reviewed & are unremarkable except as noted in HPI and below PMFSH Past Medical History Medical History Blood testosterone increased compared with prior measurement History of miscarriage No pertinent past medical history PCOS (polycystic ovarian syndrome) Vaginal delivery 04/08/20171408 lbs.2 oz.MVaginalFull Term BirthNonebaby boy born in [facility], Surgical History Surgical History No pertinent past surgical history Family History Family History Father Hypertension Social History Social History Smoking status: Never smoker Second hand tobacco smoke exposure: No Alcohol intake: never Substance use: never Substance use type: does not use Living arrangements: with family Occupation/Education: unemployed Gender identity (if verbalized by the patient): Female Sexual Orientation (if Verbalized by the Patient): Straight or Heterosexual Spiritual care concerns: No Agree to blood products: Yes Exam Narrative: APPEARANCE: Well appearing, no pain, no distress, well-nourished. HEAD: normocephalic, atraumatic. EYES: PERRLA/EOMI, conjunctivae clear. NOSE: Normal no drainage EARS:TMS clear with good light reflex. THROAT: Pharynx clear, no exudate. NECK: Supple. No adenopathy, no masses. RESPIRATORY: Airway patent, respirations nonlabored. Clear to auscultation bilaterally, no rales, rhonchi, wheezing. CARDIOVASCULAR: Regular rate and rhythm without murmurs rubs or gallops. ABDOMINAL: Soft, nontender, nondistended, normal bowel sounds MUSCULOSKELETAL: Moves all extremities. Strength/ROM intact, No edema, No calf tenderness. NEURO: Alert. Cranial nerves II through XII intact. SKIN: Warm, dry. Normal Color Course Vital Signs Vital signs: Vital Signs Temperature 97.6 F 03/17/24 09:31 Pulse Rate 70 03/17/24 09:31 Respiratory Rate 18 03/17/24 09:31 Blood Pressure 123/69 03/17/24 09:31 Pulse Oximetry 100 03/17/24 09:31 Oxygen Delivery Room Air 03/17/24 09:31 Temperature 97.6 F 03/17/24 09:31 Pulse Rate 70 03/17/24 09:31 Respiratory Rate 18 03/17/24 09:31 Blood Pressure 123/69 03/17/24 09:31 Pulse Oximetry 100 03/17/24 09:31 Oxygen Delivery Room Air 03/17/24 09:31 Medical Decision Making [facility] Narrative Medical decision making narrative: 33-year-old female presented to the emergency department for evaluation for generalized body aches. Patient is afebrile with a normal CRP and only mildly elevated ESR. Patient has no leukocytosis and a stable hemoglobin, no significant acute abnormalities on her CMP. UA did show positive leuk esterase and positive whi
[2024-03-17 10:58] LABS: Influenza A QL RT-PCR Negative (Negative); Influenza B QL RT-PCR Negative (Negative); RSV RNA, RT-PCR Negative (Negative); SARS-CoV-2 RNA PCR Negative (Negative)
[2024-03-17 11:15] LABS: Erythrocyte Sedimentation Rate 21 mm/hr (0-20)
[2024-03-17] MEDS: CEPHALEXIN 500 MG CAPSULE PO (12:35)
== END 2024-03-17 12:39 | disposition home or self-care (01) ==
PROVIDERS: Emergency Provider Emergency Medicine; PCP Physician Assistant
DX: N39.0 Urinary tract infection, site not specified (principal); M79.10 Myalgia, unspecified site; Z20.822 Contact with and (suspected) exposure to COVID-19
CPT/HCPCS: 36415; 80053; 81001; 81025; 85025; 85652; 86140; 87086; 87637; 96360; 99283; A9270; J7030

== ENCOUNTER 2024-10-30 10:26 | Emergency (ER) | payer OTHER, SELFPAY ==
--- NOTE | 2024-10-30 10:29 | ED.GENADULT ---
HPI - General Adult General Chief complaint: Chest Pain Stated complaint: left side chest pain Time Seen by Provider: 10/30/24 10:45 Source: patient, RN notes reviewed, old records reviewed and rotor coil taper (lithuanian) Mode of arrival: ambulatory Limitations: no limitations History of Present Illness HPI narrative: 34-year-old female presents to the [facility] with left-sided intermittent chest pain since last night. Nothing makes it better or worse. Denies any shortness of breath. Denies fevers. No nausea or vomiting. Unable to reproduce pain with palpation. 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 services Treatments prior to arrival: none Related Data Home Medications ?Medication ?Instructions ?Recorded ?Confirmed ?Last Taken ?Type drospirenone (contraceptive) 4 mg 1 tablet PO QHS 10/30/24 10/30/24 Unknown History (28) tablet (Slynd) Allergies Allergy/AdvReac Type Severity Reaction Status Date / Time No Known Allergies Allergy Verified 10/30/24 10:36 Review of Systems Review of Systems: All systems reviewed & are unremarkable except as noted in HPI and below Constitutional: Constitutional: Reports no additional constitutional complaints ENT: Reports system reviewed and no additional complaints, except as documented Cardiovascular: Cardiovascular: Reports as per HPI, Reports chest pain, Reports chest pain at rest, Denies dyspnea, Denies dyspnea on exertion and Denies orthopnea Respiratory: Respiratory: Reports no additional respiratory complaints, Denies chest congestion, Denies cough and Denies dyspnea Musculoskeletal: Musculoskeletal: Reports no additional musculoskeletal complaints Integumentary/Breasts: Skin/Breast: Reports system reviewed and no additional complaints, except as docu PMFSH Past Medical History Medical History Vaginal delivery 04/08/20171408 lbs.2 oz.MVaginalFull Term BirthNonebaby boy born in [facility], History of miscarriage Blood testosterone increased compared with prior measurement PCOS (polycystic ovarian syndrome) No pertinent past medical history Surgical History Surgical History No pertinent past surgical history Family History Family History Father Hypertension Social History Social History (Reviewed 10/30/24 @ 10:32 by ROC Wiggins Smoking status: Never smoker Second hand tobacco smoke exposure: No Alcohol intake: never Substance use: never Substance use type: does not use Living arrangements: with family Occupation/Education: unemployed Gender identity (if verbalized by the patient): Female Sexual Orientation (if Verbalized by the Patient): Straight or Heterosexual Spiritual care concerns: No Agree to blood products: Yes Comments At the time of my signature, I reviewed and agree with the nursing past medical, surgical, social, and family history. There is no relevant family history pertinent to the patient complaint. Exam Const: General: cooperative, healthy appearing, comfortable, no acute distress, well developed, alert and well nourished Nutritional Appearance: well nourished Orientation/consciousness: patient oriented x3 Limitations: no limitations HENMT: Head: normal to inspection Eyes: General: appearance normal, both eyes and all related structures Alignment and Position: alignment normal Neck: Neck: normal visual inspection, full ROM, no lymphadenopathy and no meningeal signs Chest: Chest palpation & inspection: normal inspection of the chest Resp: Effort & Inspection: normal respiratory effort and able to speak in complete sentences Auscultation: clear to auscultation bilaterally, no crackles, no rales, no rhonchi and no wheezes Cardio: Rate: regular rate Rhythm: regular rhythm Heart sounds: S1 normal heart sound present and S2 normal heart sound present GI: GI Palp: No abdominal tenderness Skin: General skin exam: normal color and no rashes or lesions noted Neuro: General: patient oriented x3, gait normal, moves all extremities and no meningeal signs Cognition (Neuro): normal cognition Speech: normal speech Gait exam (Neuro): Normal gait present Extrem: General: normal to inspection, full ROM, capillary refill normal and normal gait Psych: Appearance: grossly normal and well kempt Mental Status: mental status grossly normal Speech and movement: Normal speech and movement present and Clear speech present Affect: normal affect Attitude: cooperative Course Course Level of Care: Express Care Visit Vital Signs Vital signs: Vital Signs Oxygen Delivery Room Air 10/30/24 10:35 Temperature 96.8 F L 10/30/24 10:37 Pulse Rate 76 10/30/24 11:10 Respiratory Rate 16 10/30/24 11:10 Blood Pressure 122/72 10/30/24 10:37 Pulse Oximetry 99 10/30/24 11:10 Oxygen Delivery Room Air 10/30/24 11:10 Reviewed Transfer Transfered to: [place] Transportation: ALS Transfer rationale: Patient with left-sided chest pain unable to reproduce. Abnormal EKG sending for higher level of care Accepting physician: Spoke with Dr. Jd Gutierrez Medical Decision Making MDM Narrative Medical decision making narrative: Patient sitting comfortably in exam room. Nontoxic, vitals stable. Patient in no acute distress Patient presents for left-sided chest pain. Abnormal EKGs sending for higher level of care Transfer instructions reviewed with patient. Sending by EMS peer All questions have been answered, and the patient deny any further questions. Some parts of this dictation were generated by voice recognition software and may contain typographical and/or grammatical inaccuracies. Differential Diagnosis Differential Diagnosis: Cardiac issue, PE,costochondritis, Medical Records Medical records reviewed: Yes I reviewed the external patient's medical records. Vital Signs Vital Signs: Vital Signs Oxygen Delivery Room Air 10/30/24 10:35 Temperature 96.8 F L 10/30/24 10:37 Pulse Rate 76 10/30/24 11:10 Respiratory Rate 16 10/30/24 11:10 Blood Pressure 122/72 10/30/24 10:37 Pulse Oximetry 99 10/30/24 11:10 Oxygen Delivery Room Air 10/30/24 11:10 Reviewed Lab Data Lab results reviewed: Yes I reviewed the patient's lab results. Labs: Reviewed ECG Data EKG #1: Attestation: I personally reviewed and interpreted this ECG as follows: ECG completion date: 10/30/24 ECG completion time: 10:54 Prior ECG tracings: not available for review Interpretation: Sinus rhythm, moderate T-wave abnormality, septal myocardial infraction- probably old Ventricle rate 77, IN interval 142 QRS duration [address] elevation depression noted this time. Critical Care Time Critical Care Time Critical Care Time: No Discharge Plan Discharge Clinical Impression: Chest pain Patient Disposition: Acute Care Hospital Condition: Stable Patient Language: Persian Prescriptions: No Action Slynd 4 mg (28) tablet 1 tablet PO QHS Follow-up/Referrals: Rick,TERESA Elizabeth [Primary Care Provider] -
[2024-10-30 10:37] VITALS: BP 122/72; PULSE 80; RESP 16; TEMP 36; O2SAT 99
--- NOTE | 2024-10-30 10:42 | ECG_ITS ---
Test Date: 2024-10-30 10:54:24 Measurements Intervals [place] Rate: 77 P: 63 HI: 142 QRS: 33 QRSD: 90 T: -20 QT: 364 QTc: 413 Interpretive Statements SINUS RHYTHM SEPTAL MYOCARDIAL INFARCTION [40+ ms Q WAVE IN V1/V2], PROBABLY OLD NONSPECIFIC ST AND T WAVE ABNORMALITY No previous ECG available for comparison Electronically Signed On 10-30-2024 15:27:14 MANAGER TALENT MANAGEMENT by Beto Chen M.D.
[2024-10-30] MEDS: ASPIRIN 81 MG CHEWABLE TABLET 324 MG PO (11:03)
[2024-10-30 11:10] VITALS: PULSE 76; RESP 16; O2SAT 99
== END 2024-10-30 11:10 | disposition short-term general hospital (02) ==
PROVIDERS: Emergency Provider Nurse Practitioner; PCP Physician Assistant Medical
DX: R07.9 Chest pain, unspecified (principal); E28.2 Polycystic ovarian syndrome
CPT/HCPCS: 93005; 99215; A9270; G0463

== ENCOUNTER 2024-10-30 11:29 | Emergency (ER) | payer OTHER, SELFPAY ==
--- NOTE | ~2024-10-30 | XR_ITS ---
EXAMINATION: XR chest 2V DATE: 10/30/2024 12:22 INDICATION: Left chest pain. TECHNIQUE: Frontal and lateral views of the chest were obtained. COMPARISON: None. FINDINGS: There is no pneumonia, pleural effusion, or pneumothorax. The heart size is normal. IMPRESSION: 1. No acute cardiopulmonary disease. Reviewed, dictated and finalized at location A. ESS MANAGER
--- NOTE | 2024-10-30 11:41 | ECG_ITS ---
Test Date: 2024-10-30 11:56:12 Measurements Intervals [place] Rate: 75 P: 42 [place]: 144 QRS: 13 QRSD: 93 T: -5 QT: 370 QTc: 414 Interpretive Statements SINUS RHYTHM SEPTAL MYOCARDIAL INFARCTION , PROBABLY OLD [40+ ms Q WAVE IN V1/V2] NONSPECIFIC ST AND T WAVE ABNORMALITY Compared to ECG 10/30/2024 10:54:24 NO SIGNIFICANT CHANGES Electronically Signed On 10-30-2024 15:29:32 SUPERVISOR SMOKE CONTROL by Beto Chen M.D.
[2024-10-30 11:58] VITALS: PULSE 73
[2024-10-30 12:03] LABS: Basophils Absolute Auto 0.1 K/mm3 (0.0-0.1); Basophils Percent Auto 0.7 % (0.2-1.2); Eosinophils Absolute Auto 0.4 K/mm3 (0-0.3); Eosinophils Percent Auto 4.2 % (0-4.4); Hematocrit 41.8 % (37.0-47.0); Hemoglobin 14.1 g/dL (12.0-15.0); Immature Granulocyte Absolute 0.02 K/mm3 (0.00-0.031); Immature Granulocyte Percent A 0.2 % (0-0.5); Lymphocytes Absolute Auto 3.13 K/mm3 (0.9-3.2); Lymphocytes Percent Auto 32.7 % (18.3-44.2); Mean Corpuscular HGB Conc 33.7 g/dl (32-36); Mean Corpuscular Hemoglobin 32.7 pg (26-34); Mean Platelet Volume 9.7 fl (7.4-10.4); Monocytes Absolute Auto 0.8 K/mm3 (0.1-0.6); Monocytes Percent Auto 8.8 % (2.6-8.5); Neutrophils Absolute Auto 5.1 K/mm3 (1.3-6.7); Neutrophils Percent Auto 53.4 % (45.5-73.1); Platelet Count Result 325 k/mm3 (150-375); Red Blood Count 4.31 M/mm3 (4.2-5.4); Red Cell Distribution Width 11.9 % (11.5-14.5); White Blood Count 9.6 K/mm3 (4.5-10.0)
[2024-10-30 12:16] LABS: Alanine Aminotransferase 17 U/L (6-35); Albumin Level 4.2 g/dL (3.5-5.1); Alkaline Phosphatase 66 U/L (38-126); Anion Gap 9 mmol/L (4-12); Aspartate Amino Transferase 19 U/L (14-36); Blood Urea Nitrogen 10 mg/dL (7-17); Carbon Dioxide 28 mmol/L (22-30); Chloride 102 mmol/L (98-107); Estimated Glomerular Filt Rate > 60; Glucose 101 mg/dL (65-110); Lipase 86 U/L (23-300); Potassium 3.5 mmol/L (3.4-5.0); Sodium 139 mmol/L (137-145)
[2024-10-30 12:25] LABS: Prothrombin Time 13.2 Seconds (11.1-14.7)
[2024-10-30 12:26] LABS: Partial Thromboplastin Time 28.5 Seconds (22.3-36.8)
[2024-10-30 12:27] LABS: Troponin I < 0.012 ng/mL (0.000-0.034)
[2024-10-30 12:51] VITALS: BP 100/69; PULSE 64; RESP 16; O2SAT 99
[2024-10-30 14:19] VITALS: BP 123/63; PULSE 77; O2SAT 97
--- NOTE | 2024-10-30 14:19 | ED_ITS ---
HPI - Chest Pain General Chief Complaint: Chest Pain Stated Complaint: chest pain Time Seen by Provider: 10/30/24 13:47 Source: patient Mode of arrival: ambulatory Limitations: language barrier (Rosa #[id number]) History of Present Illness HPI narrative: Patient presents with chest pain. It started last night and continues intermittently. She describes it as a throbbing , dull. Notes occasional palpitation. No recent sickness, shortness of breath, nausea/vomiting fever/chills, cough. This has happened every once in awhile before but no prior work up. No known underlying cardiac history or respiratory issues. Has never seen a motorized squad captain. Pain worse when laying on her left side. Non radiating, 5/10 in severity. Does not become diaphoretic. Started at rest while laying down. Patient denies any lower extremity swelling but does note she has varicose veins on her left. Has found no relation to food, either the timing or type of food she eats (spicy, fatty, etc.). No PCP. No recent travel. [facility] and they recommended she come for further work up based on EKG. She is on oral contraception/ control. Cardiac risk factors: No diagnosis of HTN, HLD, DM, prior AK/TIA/CVA. Non smoker. + Fam history (father of an AK at 37yo). Related Data Home Medications ?Medication ?Instructions ?Recorded ?Confirmed ?Last Taken ?Type drospirenone (contraceptive) 4 mg 1 tablet PO QHS 10/30/24 10/30/24 Unknown History (28) tablet (Slynd) Allergies Allergy/AdvReac Type Severity Reaction Status Date / Time No Known Allergies Allergy Verified 10/30/24 10:36 [facility] Past Medical History Medical History Vaginal delivery 04/08/20171408 lbs.2 oz.MVaginalFull Term BirthNonebaby boy born in [facility], History of miscarriage Blood testosterone increased compared with prior measurement PCOS (polycystic ovarian syndrome) Surgical History Surgical History No pertinent past surgical history Family History Family History Father Hypertension Acute myocardial infarction, Onset Age: 35 Social History Social History Smoking status: Never smoker Second hand tobacco smoke exposure: No Alcohol intake: never Substance use: never Substance use type: does not use Living arrangements: with family Occupation/Education: unemployed Gender identity (if verbalized by the patient): Female Sexual Orientation (if Verbalized by the Patient): Straight or Heterosexual Spiritual care concerns: No Agree to blood products: Yes Exam 2 Narrative: GENERAL: Well-appearing, well-nourished, and in no acute distress. Patient comfortably laying on stretcher. HEAD: Normocephalic, atraumatic. EYES: Non injected, non icteric ENT: Nares clear, no rhinorrhea or epistaxis. NECK: Supple. CHEST: Speaking in full sentences. No respiratory distress. Lungs clear to auscultation without appreciable consolidation, wheezes, crackles. HEART: Regular rate and rhythm. No murmur/friction rub. ABDOMEN: Soft, nondistended. EXTREMITIES: Normal range of motion. No bilateral lower extremity edema. Through patient's skin, can appreciate visible veins on distal left thigh, though they are not varicose. SKIN: Warm, dry, no rash. NEURO: No focal deficits. Alert and oriented x3. PSYCH: Normal mood and affect. Course Vital Signs Vital signs: Vital Signs Pulse Rate 73 10/30/24 11:58 Pulse Rate 67 10/30/24 15:48 Respiratory Rate 14 10/30/24 15:48 Blood Pressure 106/77 10/30/24 15:48 Pulse Oximetry 100 10/30/24 15:48 MDM - Chest Pain MDM Narrative Medical decision making narrative: Patient presents with left sided chest pain. had been at urgent care who recommended further work up. In the emergency department they are afebrile with vital signs within normal limits. HEART SCORE History 2 highly suspicious 1 moderately suspicious 0 slightly suspicious History score [address] depression/elevation not due to LBBB, LVH, or digoxin [address] depression but LBBB, LVH, nonspecific repolarization changes - T wave inversions 0 normal ECG score 1 Age 2 >/= 65 1 45-64 0 <45 Age score 0 Risk factors (HTN, hypercholesterolemia, DM, obesity with BMI >30, current smoker or cessation </=3mo), positive fam hx with parent or sibling with CVD before age 65, atherosclerotic disease (prior AK, PCI/CABG, CVA/TIA, or peripheral arterial disease) 2 >/= 3 risk factors or history of atherosclerotic dz 1 - 1-2 risk factors 0 no known risk factors Risk factor score 1 (fam hx; possibly obese/borderline obese but patient doesn't know height; weighs 140lb) Initial Troponin 2 >3 times normal limit 1 1-3 times normal limit 0 less than or equal to normal limit Troponin score 0 Total HEART Score 2. Dimer negative. 2nd troponin negative. Had discussed with patient that given risk factors, a negative work up in the ED means that the next step is important which should include further work up in the outpatient setting. Provided contact information for a PCP given she doesn't have one; also provided referral for cardiology. Stable for discharge. Differential Diagnosis Differential diagnosis: Likely stable angina, unstable angina pectoris, atypical chest pain, st elevation myocardial infarction, costochondritis, chest pain, biliary colic and other (pericarditis, myocarditis; arrhtymia; pneumonia; musculoskeletal; psychogenic) Lab Data Attestation: I reviewed the patient's lab results. 10/30/24 11:56 10/30/24 11:56 Labs: Lab Results 10/30/24 10/30/24 Range/Units 11:56 14:47 WBC 9.6 (4.5-10.0) K/mm3 RBC 4.31 (4.2-5.4) M/mm3 Hgb 14.1 (12.0-15.0) g/dL Hct 41.8 (37.0-47.0) % MCV 97.0 (80-100) fl MCH 32.7 (26-34) pg MCHC 33.7 (32-36) g/dl RDW 11.9 (11.5-14.5) % Plt Count 325 (150-375) k/mm3 MPV 9.7 (7.4-10.4) fl Immature Gran % (Auto) 0.2 (0-0.5) % Neut % (Auto) 53.4 (45.5-73.1) % Lymph % (Auto) 32.7 (18.3-44.2) % Brantley % (Auto) 8.8 H (2.6-8.5) % Eos % (Auto) 4.2 (0-4.4) % Baso % (Auto) 0.7 (0.2-1.2) % Lymph # (Auto) 3.13 (0.9-3.2) K/mm3 Br[place]ley # (Auto) 0.8 H (0.1-0.6) K/mm3 Eos # (Auto) 0.4 H (0-0.3) K/mm3 Baso # (Auto) 0.1 (0.0-0.1) K/mm3 Abs Immat Gran (auto) 0.02 (0.00-0.031) K/mm3 Absolute Neuts (auto) 5.1 (1.3-6.7) K/mm3 Absolute Nucleated RBC 0.000 (0.0-0.012) K/mm3 Nucleated RBC % 0.0 (0.0-0.2) % PT 13.2 (11.1-14.7) Seconds INR 1.0 APTT 28.5 (22.3-36.8) Seconds D-Dimer < 0.27 (<0.48) ug/mL Sodium 139 (137-145) mmol/L Potassium 3.5 (3.4-5.0) mmol/L Chloride 102 (98-107) mmol/L Carbon Dioxide 28 (22-30) mmol/L Anion Gap 9 (4-12) mmol/L BUN 10 (7-17) mg/dL Creatinine 0.52 L (0.7-1.0) mg/dL Estim Creat Clear Calc Not Reportable Estimated GFR > 60 (59 - ) Glucose 101 (65-110) mg/dL Calcium 9.0 (8.4-10.2) mg/dL Total Bilirubin 1.0 (0.2-1.3) mg/dL AST 19 (14-36) U/L ALT 17 (6-35) U/L Alkaline Phosphatase 66 (38-126) U/L Troponin I < 0.012 < 0.012 (0.000-0.034) ng/mL Total Protein 7.0 (6.3-8.2) g/dL Albumin 4.2 (3.5-5.1) g/dL Lipase 86 (23-300) U/L Imaging Data Radiologist's impression: Impressions Chest X-Ray 10/30/24 12:24 IMPRESSION: 1. No acute cardiopulmonary disease. ECG Data EKG #1: Attestation: I personally reviewed and interpreted this ECG as follows: ECG completion date: 10/30/24 ECG completion time: 11:56 Interpretation: Normal sinus rhythm at a rate of 75 beats per minute. TN interval 144. QRS 93. QT/QTC 370/399. Good R-wave progression across the precordial leads. T-wave inversion in lead 3 but otherwise upright in normal in contiguous inferior leads 2 and AVF. No other T-wave inversions. QRS complex in V2 is of low amplitude but I suspect this might be due to lead placement over the sternum. EKG #2: Attestation: I personally reviewed and interpreted this ECG as follows: ECG completion date: 10/30/24 ECG completion time: 15:00 Interpretation: Normal sinus rhythm at a rate of 73 beats per minute. TN interval 136. QRS 90. QT/QTC 380/414. Good R-wave progression across the precordial leads. T-wave inversions in lead 3 and AVF. Slight T-wave flattening lead 2. Patient also has T-wave inversions in V3 and V4. Discharge Plan Discharge Clinical Impression: Chest pain, T wave inversion in EKG Patient Disposition: Home, Self-Care Condition: Stable Instructions: Antibiotic Form, Chest Pain (ED) Additional Instructions: As we discussed, no clear cause of your symptoms has been identified but I do recommend you follow up outpatient for further work up given your risk factors. The name of a primary care physician is listed below. Alternatively, there is a provider that speaks Khmer if you prefer though I do not know if they are accepting patients. Her name is Ina Silveira ([phone]). The name of a motorized squad captain is also provided. Acetaminophen/Tylenol (maximum 4000 mg per day) is safe to take with NSAIDs (ibuprofen/Motrin) for pain relief. Return to the emergency department with any new/worsened/unmanaged symptoms Patient Language: Khmer Prescriptions: No Action Slynd 4 mg (28) tablet 1 tablet PO QHS Follow-up/Referrals: Beto Chen MD [Physician] - (cardiology) Rick,TERESA Elizabeth [Primary Care Provider] - Sajid,Johann M., MD [Physician] - (family practice/primary care physician) Stand Alone Forms: Work/School Release IP Time of Disposition: 16:25
--- NOTE | 2024-10-30 14:38 | ECG_ITS ---
Test Date: 2024-10-30 15:00:48 Measurements Intervals [place] Rate: 73 P: 45 PA: 136 QRS: 7 QRSD: 90 T: -12 QT: 388 QTc: 430 Interpretive Statements SINUS RHYTHM SEPTAL MYOCARDIAL INFARCTION , PROBABLY OLD [40+ ms Q WAVE IN V1/V2] NONSPECIFIC ST AND T WAVE ABNORMALITY Compared to ECG 10/30/2024 11:56:12 NO SIGNIFICANT CHANGES Electronically Signed On 10-30-2024 15:38:18 GOVERNMENT RELATIONS MANAGER by Beto Chen M.D.
[2024-10-30] MEDS: ACETAMINOPHEN 500 MG TABLET 1000 MG PO (15:09)
[2024-10-30 15:16] LABS: D Dimer < 0.27 ug/mL (<0.48)
[2024-10-30 15:48] VITALS: BP 106/77; PULSE 67; RESP 14; O2SAT 100
[2024-10-30 16:13] LABS: Troponin I < 0.012 ng/mL (0.000-0.034)
[2024-10-30] MEDS: KETOROLAC 30 MG/ML VIAL (*BKC) 15 MG IM (17:14)
== END 2024-10-30 17:43 | disposition home or self-care (01) ==
PROVIDERS: Emergency Medicine; Emergency Provider Student in an Organized Health Care Education/Training Program; PCP Physician Assistant Medical
DX: R07.9 Chest pain, unspecified (principal); R94.31 Abnormal electrocardiogram [ECG] [EKG]
CPT/HCPCS: 36415; 71046; 80053; 83690; 84484; 85025; 85380; 85610; 85730; 93005; 96372; 99284; A9270; J1885

== ENCOUNTER 2024-11-15 08:24 | Emergency (ER) | payer OTHER, SELFPAY ==
--- NOTE | 2024-11-15 08:27 | ED_ITS ---
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 Patient has taken Tylenol. Denies any fever, chills, nausea, vomiting, diarrhea. Related Data Home Medications ?Medication ?Instructions ?Recorded ?Confirmed ?Last Taken ?Type drospirenone (contraceptive) 4 mg 1 tablet PO QHS 10/30/24 11/15/24 Unknown History (28) tablet (Slynd) Allergies Allergy/AdvReac Type Severity Reaction Status Date / Time No Known Allergies Allergy Verified 11/15/24 08:29 Review of Systems Review of Systems: All systems reviewed & are unremarkable except as noted in HPI and below Constitutional: Constitutional: Denies body ache(s), Denies chills, Denies fatigue, Denies fever(s), Denies headache(s), Denies malaise and Denies weakness Eyes: Eyes: Denies blurry vision, Denies itchy eyes and Denies loss of vision ENT: Reports otalgia, Denies headache(s), Denies nasal congestion, Denies sinus pain and Reports sore throat Cardiovascular: Cardiovascular: Denies chest pain, Denies irregular heart rhythm and Denies dyspnea Respiratory: Respiratory: Denies cough and Denies dyspnea Gastrointestinal: Gastrointestinal: Denies abdominal pain, Denies diarrhea, Denies nausea and Denies vomiting Musculoskeletal: Musculoskeletal: Denies back pain, Denies myalgias and Denies arthralgias Integumentary/Breasts: Skin/Breast: Denies pruritus and Denies rash Neurologic: Denies headache(s), Denies loss of vision and Denies weakness Psychiatric: Psychiatric: Reports no additional psychiatric complaints Endocrine: Endocrine: Denies fatigue Allergic/Immunologic: Allergic/Immunologic: Denies itchy eyes PMFSH Past Medical History Medical History Vaginal delivery 04/08/20171408 lbs.2 oz.MVaginalFull Term BirthNonebaby boy born in [facility], History of miscarriage Blood testosterone increased compared with prior measurement PCOS (polycystic ovarian syndrome) Surgical History Surgical History No pertinent past surgical history Family History Family History Father Hypertension Acute myocardial infarction, Onset Age: 37 Social History Social History Smoking status: Never smoker Second hand tobacco smoke exposure: No Alcohol intake: never Substance use: never Substance use type: does not use Living arrangements: with family Occupation/Education: unemployed Gender identity (if verbalized by the patient): Female Sexual Orientation (if Verbalized by the Patient): Straight or Heterosexual Spiritual care concerns: No Agree to blood products: Yes Comments At time of signature, agree with nursing past medical, surgical, social and family history. There is no relevant family history pertinent to the presenting complaint. Exam Const: General: cooperative, healthy appearing, comfortable, no acute distress and well nourished Nutritional Appearance: well nourished Orientation/consciousness: patient oriented x3 Limitations: no limitations HENMT: Head: normal to inspection, normocephalic and atraumatic Ears: hearing grossly normal bilaterally, external ears normal, TM's normal bilaterally, EAC's normal and no periauricular adenopathy Face/Nose/Sinus: Normal external nose present, Abnormal mucous membranes and turbinates present erythematous bilateral and diffuse, normal facial exam, sinuses nontender and face symmetric Face and sinus: normal facial exam, sinuses nontender and face symmetric Mouth: Yes Normal oral and palatal mucosa present, Yes lip normal, Yes tongue normal, Yes Normal salivary glands and ducts present, Yes oropharynx normal and Yes moist mucous membranes Teeth and gingiva: dentition normal Throat: tonsils normal, uvula midline and posterior oropharynx abnormal erythema Eyes: General: appearance normal, both eyes and all related structures Alignment and Position: alignment normal and position normal Periorbital: periorbital findings normal Eyelids: eyelids normal Pupils: Equal, round and reactive pupils present Neck: Neck: normal visual inspection, full ROM, no lymphadenopathy and supple Chest: Chest palpation & inspection: normal inspection of the chest and normal palpation of entire chest wall Resp: Effort & Inspection: normal respiratory effort and able to speak in complete sentences Auscultation: clear to auscultation bilaterally, no crackles, no rales, no rhonchi and no wheezes Cardio: Rate: regular rate Rhythm: regular rhythm Heart sounds: S1 normal heart sound present and S2 normal heart sound present GI: Inspection: normal to inspection Skin: General skin exam: normal color and no rashes or lesions noted Neuro: General: patient oriented x3 and moves all extremities Cranial nerves: Yes Equal, round and reactive pupils present Speech: normal speech Gait exam (Neuro): Normal gait present Extrem: General: normal to inspection, full ROM and no edema Psych: Appearance: grossly normal and well kempt Mental Status: mental status grossly normal Speech and movement: Normal speech and movement present Affect: normal affect Attitude: cooperative Thought process: Normal thought process present Course Course Emergency Course: Discharge instructions reviewed with patient, as well as provided in writing per nursing staff. The instructions also include specific and strict return/GO TO THE ER as well as f/u information. All questions have been answered, and the patient deny any further questions with discharge and discharge plan. Portions of this record may have been created with voice recognition software Level of Care: [facility] Visit Vital Signs Vital signs: Vital Signs Temperature 37.3 C 11/15/24 08:43 Pulse Rate 86 11/15/24 08:43 Respiratory Rate 16 11/15/24 08:43 Blood Pressure 112/69 11/15/24 08:43 Pulse Oximetry 100 11/15/24 08:43 Oxygen Delivery Room Air 11/15/24 08:43 Temperature 37.3 C 11/15/24 08:43 Pulse Rate 86 11/15/24 08:43 Respiratory Rate 16 11/15/24 08:43 Blood Pressure 112/69 11/15/24 08:43 Pulse Oximetry 100 11/15/24 08:43 Oxygen Delivery Room Air 11/15/24 08:43 Reviewed MDM - URI/Sore Throat MDM Narrative Medical decision making narrative: Pt well hydrated appearing, in no respiratory distress, hemodynamically stable. Recommend supportive care. The patient is stable at time of discharge the clinical impression was discussed and the patient was given the opportunity to ask questions, which were addressed as completely as possible given the information available at present. Anticipatory guidance and return to care precautions were discussed and the importance of primary care follow-up was stressed and encouraged. The patient voiced understanding of the plan, indications to return, and the need for follow-up. Differential diagnosis considered: Adan virus, strep pharyngitis, allergic rhinitis, upper respiratory tract infection, sinusitis, rhinosinusitis, nasopharyngitis. viral pharyngitis, otitis media, otitis externa, otitis effusion, foreign body, cerumen impaction, viral syndrome, and influenza.? Exam findings show no acute concerns or changes; patient is non-toxic appearing and is in no distress.? Patient is appropriate for outpatient treatment and follow- up.? Medical Records Attestation: I reviewed the patient's medical records. Lab Data Attestation: I reviewed the patient's lab results. Lab results narrative: Patient was positive for Strep Discharge Plan Discharge Clinical Impression: Strep throat Patient Disposition: Home, Self-Care Condition: Stable Instructions: Strep Throat (ED) Additional Instructions: Garcia prueba r?pida para estreptococos fue positiva hoy en [facility]. Despu?s de 24 horas de tratamiento con antibi?ticos, deseche el cepillo de dientes y comience a usar gladys nuevo. Lava tus s?micheline y taza/botella de agua que usas diariamente. No compartas bebidas. [place] Motrin alternando con Tylenol para el dolor y la fiebre, alternando cada 4 horas. Aumente los l?quidos, evite la cafe?na. Otros tratamientos sintom?ticos incluyen: -Los medicamentos antihistam?nicos sangita Benadryl por la noche y Zyrtec/Claritin/Janel lisa el d?a pueden ayudar a mejorar los s?ntomas. -Use Flonase dos veces al d?a lisa 5 d?as y luego diariamente para ayudar a reducir la inflamaci?n y secar los senos nasales. -Tambi?n puedes utilizar Sudafed o Mucinex. Aseg?rese de beber citlalli agua con estos medicamentos, al menos 8 onzas con cada dosis y es importante beber de 8 a 10 vasos de agua por d?a. El agua es un descongestionante natural. -Coma y karin cosas que janelle f?ciles de tragar, sangita t?, sopa o paletas heladas. -Enjuagues bucales sangita: Gargarismos con agua salada y/o puede utilizar anest?sico t?bartolo (p. ej. spray cloras?ptico) o pastillas para aliviar la se quedad o el dolor de garganta). -Lavarse las al con frecuencia o usar desinfectante para al es juan miguel de las mejores formas de prevenir la propagaci?n de infecciones. -Usar un vaporizador o humidificador por la noche tambi?n ayudar? a diluir las secreciones y a toser con flema. -Seguimiento con el proveedor de atenci?n primaria en 3 a 5 d?as si la condici?n no mejora - Si los s?ntomas son nuevos o empeoran, vaya directamente a la becka de emergencias m?s cercana. Your rapid strep swab was positive today at [facility]. After 24 hours on antibiotics throw tooth brush away and start using a new one. Wash your sheets and cup/water bottle that is used daily. Do not share drinks. Take Motrin alternating with Tylenol for pain and fever alternating every 4 hours. Increase fluids, avoid caffeine. Other symptomatic treatments include: -Antihistamine medication such as Benadryl at night and Zyrtec/Claritin/Janel during the day can help improve symptoms. -Use Flonase twice a day for 5 days then daily to help reduce the inflammation and dry up your sinuses. -You can also use Sudafed or Mucinex. Be sure to drink plenty of water with these medications at least 8 ounces with every dose and it is important to drink 8 to 10 glasses of water per day. Water is a natural decongestant -Eat and drink things that are easy to swallow, like tea or soup, or popsicles. -Oral rinses such as: Salt water gargles and/or may use topical anesthetic (eg. Chloraseptic spray) or lozenges to relieve dryness or throat pain). -Frequent hand washing or hand field kiln burner is one of the best ways to prevent spread of infection. -Using a vaporizer or humidifier at night will also help thin secretions and help with coughing up phlegm. -Follow up with primary care provider in 3-5 days if condition is not improving - For new or worsening symptoms go directly to the nearest ER Patient Language: Korean Prescriptions: New amoxicillin 500 mg capsule 500 mg PO BID 10 Days Qty: 20 0RF fluticasone propionate [Flonase Allergy Relief] 50 mcg/actuation spray,suspension 1 spray intranasal DAILY Qty: 16 0RF Rx Instructions: administer into each nostril No Action Slynd 4 mg (28) tablet 1 tablet PO QHS Follow-up/Referrals: PHYSICIAN,PLUGGING MACHINE OPERATOR [Primary Care Provider] - Johann Wallace MD [Physician] - 3 Days (Establish care) Stand Alone Forms: Work/School Release IP Time of Disposition: 08:53
[2024-11-15 08:43] VITALS: BP 112/69; PULSE 86; RESP 16; TEMP 37.3; O2SAT 100
[2024-11-15 09:56] LABS: EDSTREPNEGPOS1 Positive (Negative)
== END 2024-11-15 11:16 | disposition home or self-care (01) ==
PROVIDERS: Emergency Provider Nurse Practitioner Family
DX: J02.0 Streptococcal pharyngitis (principal)
CPT/HCPCS: 87880; 99213; G0463

== ENCOUNTER 2025-09-08 11:12 | Emergency (ER) | payer SELFPAY ==
--- NOTE | ~2025-09-08 | CT_ITS ---
CT abdomen pelvis w con Clinical History: Right lower quadrant pain . Comparison: None Technique: Axial images lung bases to symphysis pubis IV contrast information not listed in PACS Coronal, sagittal reformats CT images acquired with automatic exposure control for dose reduction DLP: 213 mGy-cm Findings: Lung bases: Clear. Visualized heart and pericardium: Unremarkable. Liver: Enlarged. Steatosis. Gallbladder: Unremarkable. Spleen: Unremarkable. Pancreas: Unremarkable. Adrenal glands: Unremarkable. Kidneys: Right kidney- No hydronephrosis. No renal stones. Left kidney- No hydronephrosis. No renal stones. Distal esophagus/stomach: Unremarkable. Small bowel loops: Normal caliber and wall thickness. Colon: Normal caliber and wall thickness. Normal RLQ appendix. Nodes: No enlarged nodes. Peritoneum: No ascites. No free air. Trace stranding right paracolic gutter but no identifiable source. Urinary bladder: Unremarkable. Uterus: Unremarkable. Adnexa: No masses. Prominent left gonadal veins. Bones: No acute bony abnormality. Soft tissues: Vulvar varices. Aorta: No aneurysm or dissection. IVC: Unremarkable. Main portal vein/SMV/splenic vein: Patent. IMPRESSION: 1. No acute abnormality. 2. Additional findings as above. Reviewed, dictated and finalized at location R. ACE TENDER
--- OUTSIDE RECORDS SUMMARY | 2025-09-08 11:14 | XMS_ITS | Clinical Summary ---
Author Organization [facility] [employer] [place] Address [address] [address] Care Team Providers Care Global Sales Director Name Role Phone Unavailable Primary Care Provider Unavailabl e Immunizations Immunization Administration Dates Next Due INFLUENZA VACCINE QUADRIVALENT 6 MOS UP PF IM Social History Tobacco Use Types Packs/Day Years Used Date Smoking Tobacco: Never Assessed Comments Unknown Sex and Gender Information Value Date Recorded Sex Assigned at Not on file Legal Sex Female 2:14 PM CDT Gender Identity Not on file Sexual Orientation Not on file Plan of Treatment Health Maintenance Due Date Last Done Comments DTAP/TDAP/TD VACCINES (1 - Tdap) 2007 HEPATITIS B VACCINES (1 of 3 - 19+ 3-dose series) 06/18 HPV/Cotest (21-29) 2009 HPV VACCINES (1 - 3-dose SCDM series) 2015 CERVICAL CANCER SCREENING 2018 HPV/Cotest (30-65) 2018 PAP SMEAR 2018 INFLUENZA VACCINE (#1) 2025 07/17/2020
--- OUTSIDE RECORDS SUMMARY | 2025-09-08 11:14 | XMS_ITS | Clinical Summary ---
Author Organization [facility] Address [address] [place] [address] Care Team Providers Care Wrapper Counter Name Role Phone Héctor Carrion MD Primary Care Provider [phone] Source Comments [facility],non-owned Affiliates and Associated Physician Practices is amultiple site organization consisting of ambulatory clinics and hospital sitesin [place], [place], [place] and [place]. This disclosure is being madepursuant to the Care Everywhere program and may not contain all information available regarding this patient. Last updated 18.[facility] Social History Tobacco Use Types Packs/Day Years Used Date Smoking Tobacco: Never Assessed Comments No Sex and Gender Information Value Date Recorded Sex Assigned at Not on file Legal Sex Female 9:51 AM CDT Gender Identity Not on file Sexual Orientation Not on file Plan of Treatment Health Maintenance Due Date Last Done Comments HIV SCREENING 2003 HEPATITIS C SCREENING 07/10/2006 DTAP/TDAP/TD VACCINES (1 - Tdap) 2007 HEPATITIS B VACCINE (1 of 3 - 19+ 3-dose series) 2007 Cervical Cancer Screening 2009 PAP SMEAR 2009 HPV VACCINE (1 - 3-dose SCDM series) 2015 PAP with HPV 2018 DEPRESSION SCREENING 10/17/2024 COVID-19 VACCINE (3 - 2024-2 6 season) 2025 09/15/2021, 08/25/2021 INFLUENZA VACCINE (#1) 2025 , 07/17/2020 ZOSTER VACCINE (1 of 2) 2038 HIB VACCINE Aged Out No longer eligi ble based on patient's age to complete this topic MENINGOCOCCAL (Group B) VACCINE SHARED DECISION-MAKING Aged Out No longer eligible based on patient's age to complete this topic MENINGOCOCCAL GROUPS A/C/Y/W VACCINE Aged Out No longer eligible b ased on patient's age to complete this topic PNEUMOCOCCAL VACCINE Aged Out No long er eligible based on patient's age to complete this topic Insurance [facility] SELF PAY NO INSURANCE Member Subscriber Plan / Payer (Ef fective for All Dates) Name:Mat Esquivel Member ID:Not on file Relation to Subscriber:Not on file Name:MAT BLUM Subscriber ID:Not on file Address: [facility] [place] [address] Payer ID:Not on file Group ID:Not on file Type:Self Pay Address: [place], [place] [facility] SELF PAY NO INSURANCE Member Subscriber Plan / Payer (Ef fective for All Dates) Name:Mat Esquivel Member ID:Not on file Relation to Subscriber:Not on file Name:MAT BLUM Subscriber ID:Not on file Address: [facility] [place] [address] Payer ID:Not on file Group ID:Not on file Type:Self Pay Address: [place], [place] Care Teams Wrapper Counter Relationship Specialty Start Date End Date Héctor Carrion MD [address] [place] [id number] PCP - General 08/12/21
--- OUTSIDE RECORDS SUMMARY | 2025-09-08 11:14 | XMS_ITS | Data Portability ---
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 Plan of Treatment Reminders Order Date Submit Date Provider Last Modified By Organization Details Last Modified Time Details Appointments None recorded. Lab magnesium, serum or plasma 2024 025 [facility], [address] [place] [address], [facility] [address], [place], [address], 13:13:50 lipid panel, serum 2024 025 [facility], [address] [place] [address], [facility] [address], [place], [address], 13:13:46 CBC w/ auto diff 2024 025 [facility], [address] [place] [address], [facility] [address], [place], [address], 13:13:51 CMP, serum or plasma 2024 025 [facility], [address] [place] [address], [facility] [address], [place], [address], 13:13:48 HbA1c (hemoglobin A1c), blood 2024 025 [facility], [address], [address], [place], [address], 5 13:13:49 TSH + free T4, serum 2024 025 [facility], [address], [address], [place], [address], 5 13:13:45 vitamin D, 25-hydroxy, total, serum 2024 025 [facility], [address], [address], [place], [address], 5 13:13:53 HIV 1 + 2, meaningful use set 2024 025 [facility], [address], [address], [place], [address], 5 13:13:54 vaginal pathogens panel, DARRELL+probe, vaginal fluid 2023 024 [facility], [address], [address], [place], [address], 4 19:07:33 cytology report, thin prep, smear or scraping, cervical or vaginal 2023 024 [facility], [address], [address], [place], [address], 4 15:11:39 Referral vascular surgeon referral 2023 024 [facility], [address], [place], [address], 4 18:53:26 Procedures None recorded. Surgeries None recorded. Imaging None recorded. Medication Orders nitroglycer in 0.4 mg sublingual tablet 2024 025 [facility], [address] [place] [address], [id number], 13:03:41 Slynd 4 mg (28) tablet 2023 025 [facility], [address] [place] [address], [id number], 12:25:06 drospirenon e (contracept gamaliel) 4 mg (28) tablet 2022 023 [email or web address], [address] [place] [address], [id number], 12:10:22 Patient TargetsNo targets recorded. Patient Instructions Encounter Date Encounter Id Patient Instructions Last Modified By Organization Details Last Modified Time 05/30/2023 [id number] Attending Physician Attestation I personally saw and examined the patient with the resident. I have reviewed the documentation and agree with the history, physical findings, work-up, and medical decision making as recorded. Rodríguez Schulz MD [email or web address] Not available 06/16/2023 11:20:38 06/27/2023 [id number] On the date of this encounter, I was immediately available to assist the resident/fellow in the care of the patient, and have reviewed and agree with the resident s findings and plan of care. ~MD Bimal [email or web address] Not available 06/30/2023 01:16:45 02/09/2024 [id number] V rices: instrucciones de cuidado - [varicose veins: care instructions] [email or web address] Not available 02/09/2024 10:23:09 aprenda acerca d el peso saludable - [learning about healthy weight] [email or web address] Not available 02/09/2024 10:23:09 10/03/2024 [id number] A healthy lifestyle: care instructions [email or web address] Not available 10/03/2024 09:36:10 aprenda sobre m todos anticonceptivos: P ldoras combinadas - [learning about control: combination pills] [email or web address] Not available 10/03/2024 09:36:10 11/20/2024 [id number] dolor de pecho: instrucciones de cuidado - [chest pain: care instructions] [email or web address] Not available 11/20/2024 12:18:13 A healthy lifestyle: care instructions [email or web address] Not available 11/20/2024 12:18:13 Reason for Referral Vascular Surgeon Referral fo r Varicose veins of lower extremity Referring Physician: Petros Cabrera, Family Medicine, Encounter Date: 02/09/2024 Results Created Date Observation Date Name Description Value Unit Range Abnormal Flag Note LastModifiedBy Organization Detail LastModifiedTime 05/02/2005/02/2023 urina lysis , dipst ick Leukocytes Small Not Available In-Offi ce Order Internal Use Only DO Not Attach Compendium DO Not Attach Compendium, Do Not Delete/merge, [facility] 05/02/2023 11:41:36 05/02/20 23 05/02/2023 urina lysis , dipst ick Nitrite negati ve Not Available In-Office Order Internal Use Only DO Not Attach Compendium DO Not Attach Compendium, Do Not Delete/merge, [facility] 05/02/2023 11:41:36 05/02/20 23 05/02/2023 urina lysis , dipst ick Urobilinogen .2 Not Available In-Of fice Order Internal Use Only DO Not Attach Compendium DO Not Attach Compendium, Do Not Delete/merge, [facility] 05/02/2023 11:41:36 05/02/20 23 05/02/2023 urina lysis , dipst ick Protein Negati ve Not Available In-Office Order Internal Use Only DO Not Attach Compendium DO Not Attach Compendium, Do Not Delete/merge, [facility] 05/02/2023 11:41:36 05/02/20 23 05/02/2023 urina lysis , dipst ick pH 7.0 Not Available In-Office Order Internal Use Only DO Not Attach Compendium DO Not Attach Compendium, Do Not Delete/merge, [facility] 05/02/2023 11:41:36 05/02/20 23 05/02/2023 urina lysis , dipst ick Blood Negati ve Not Available In-Office Order Internal Use Only DO Not Attach Compendium DO Not Attach Compendium, Do Not Delete/merge, [facility] 05/02/2023 11:41:36 05/02/2005/02/2023 urina lysis , dipst ick Specific Toponas 1.015 Not Available In-Off ice Order Internal Use Only DO Not Attach Compendium DO Not Attach Compendium, Do Not Delete/merge, [facility] 05/02/2023 11:41:36 05/02/20 23 05/02/2023 urina lysis , dipst ick Ketone Negati ve Not Available In-Office Order Internal Use Only DO Not Attach Compendium DO Not Attach Compendium, Do Not Delete/merge, [facility] 05/02/2023 11:41:36 05/02/20 23 05/02/2023 urina lysis , dipst ick Bilirubin Negati ve Not Available In-Office Order Internal Use Only DO Not Attach Compendium DO Not Attach Compendium, Do Not Delete/merge, [facility] 05/02/2023 11:41:36 05/02/20 23 05/02/2023 urina lysis , dipst ick Glucose Negati ve Not Available In-Office Order Internal Use Only DO Not Attach Compendium DO Not Attach Compendium, Do Not Delete/merge, [facility] 05/02/2023 11:41:36 05/09/20 23 05/09/2023 urina lysis , dipst ick Leukocytes Small Not Available In-Offi ce Order Internal Use Only DO Not Attach Compendium DO Not Attach Compendium, Do Not Delete/merge, [facility] 05/09/2023 14:59:01 05/09/20 23 05/09/2023 urina lysis , dipst ick Nitrite negati ve Not Available In-Office Order Internal Use Only DO Not Attach Compendium DO Not Attach Compendium, Do Not Delete/merge, [facility] 05/09/2023 14:59:01 05/09/20 23 05/09/2023 urina lysis , dipst ick Urobilinogen .2 Not Available In-Of fice Order Internal Use Only DO Not Attach Compendium DO Not Attach Compendium, Do Not Delete/merge, [facility] 05/09/2023 14:59:01 05/09/20 23 05/09/2023 urina lysis , dipst ick Protein Trace Not Available In-Office Order Internal Use Only DO Not Attach Compendium DO Not Attach Compendium, Do Not Delete/merge, [facility] 05/09/2023 14:59:01 05/09/20 23 05/09/2023 urina lysis , dipst ick pH 6.5 Not Available In-Office Order Internal Use Only DO Not Attach Compendium DO Not Attach Compendium, Do Not Delete/merge, [facility] 05/09/2023 14:59:01 05/09/20 23 05/09/2023 urina lysis , dipst ick Blood Negati ve Not Available In-Office Order Internal Use Only DO Not Attach Compendium DO Not Attach Compendium, Do Not Delete/merge, [facility] 05/09/2023 14:59:01 05/09/20 23 05/09/2023 urina lysis , dipst ick Specific Toponas 1.025 Not Available In-Off ice Order Internal Use Only DO Not Attach Compendium DO Not Attach Compendium, Do Not Delete/merge, [facility] 05/09/2023 14:59:01 05/09/20 23 05/09/2023 urina lysis , dipst ick Ketone Negati ve Not Available In-Office Order Internal Use Only DO Not Attach Compendium DO Not Attach Compendium, Do Not Delete/merge, [facility] 05/09/2023 14:59:01 05/09/20 23 05/09/2023 urina lysis , dipst ick Bilirubin Negati ve Not Available In-Office Order Internal Use Only DO Not Attach Compendium DO Not Attach Compendium, Do Not Delete/merge, [facility] 05/09/2023 14:59:01 05/09/20 23 05/09/2023 urina lysis , dipst ick Glucose Negati ve Not Available In-Office Order Internal Use Only DO Not Attach Compendium DO Not Attach Compendium, Do Not Delete/merge, [facility] 05/09/2023 14:59:01 05/16/20 23 05/16/2023 urina lysis , dipst ick Leukocytes Trace Not Available In-Offi ce Order Internal Use Only DO Not Attach Compendium DO Not Attach Compendium, Do Not Delete/merge, 05/16/2023 14:59:48 05/16/2005/16/2023 urina lysis , dipst ick Nitrite negati ve Not Available In-Office Order Internal Use Only DO Not Attach Compendium DO Not Attach Compendium, Do Not Delete/merge, 05/16/2023 14:59:48 05/16/20 23 05/16/2023 urina lysis , dipst ick Urobilinogen .2 Not Available In-Of fice Order Internal Use Only DO Not Attach Compendium DO Not Attach Compendium, Do Not Delete/merge, 05/16/2023 14:59:48 05/16/2005/16/2023 urina lysis , dipst ick Protein Negati ve Not Available In-Office Order Internal Use Only DO Not Attach Compendium DO Not Attach Compendium, Do Not Delete/merge, 05/16/2023 14:59:48 05/16/2005/16/2023 urina lysis , dipst ick pH 7.0 Not Available In-Office Order Internal Use Only DO Not Attach Compendium DO Not Attach Compendium, Do Not Delete/merge, 05/16/2023 14:59:48 05/16/2005/16/2023 urina lysis , dipst ick Blood Negati ve Not Available In-Office Order Internal Use Only DO Not Attach Compendium DO Not Attach Compendium, Do Not Delete/merge, 05/16/2023 14:59:48 05/16/2005/16/2023 urina lysis , dipst ick Specific Toponas 1.010 Not Available In-Off ice Order Internal Use Only DO Not Attach Compendium DO Not Attach Compendium, Do Not Delete/merge, 05/16/2023 14:59:48 05/16/2005/16/2023 urina lysis , dipst ick Ketone Negati ve Not Available In-Office Order Internal Use Only DO Not Attach Compendium DO Not Attach Compendium, Do Not Delete/merge, 05/16/2023 14:59:48 05/16/20 23 05/16/2023 urina lysis , dipst ick Bilirubin Negati ve Not Available In-Office Order Internal Use Only DO Not Attach Compendium DO Not Attach Compendium, Do Not Delete/merge, [id number] 05/16/2023 14:59:48 05/16/20 23 05/16/2023 urina lysis , dipst ick Glucose Negati ve Not Available In-Office Order Internal Use Only DO Not Attach Compendium DO Not Attach Compendium, Do Not Delete/merge, [id number] 05/16/2023 14:59:48 07/21/2007/21/2023 [facility] UA: neg. COVID : neg Step: neg [facility] scree n:neg WBC: 11.3 Hgb:1 4.9. HCt45 .1. plt: 345 Cr: 0.60. GFR >60. AST:3 1 ALT:2 6 Not Available [facility] [address], [place], [address], 07/25/2023 15:41:59 02/09/20 24 02/11/2024 NUSWA B VAGIN ITIS PLUS (VG+) atopobium vaginae Low - 0 score Not Available [facility] ([facility]) [address] [place], [address], 02/12/2024 19:07:32 02/09/20 24 02/11/2024 NUSWA B VAGIN ITIS PLUS (VG+) bvab 2 Low - 0 score Not Available [facility] ([facility]) [address] [place], [address], 02/12/2024 19:07:32 02/09/20 24 02/11/2024 NUSWA B VAGIN ITIS PLUS (VG+) megasphaera 1 Low - 0 score Calcu late total score by diamond guzman the 3 indiv idual bacte rial vagin osis (BV) marke r score s toget her. Total score is inter prete d as follo ws: Total score 0-1: Indic ates the absen ce of BV. Total score 2: Indet ermin ate for BV. Addit ional clini elba data shoul d be evalu ated to estab park hou osis. Total score 3-6: Indic ates the prese nce of BV. This test was devel oped and its perfo rmanc e sánchez cteri stics deter mined by [facility]. It has not been clear ed or appro tylor by the Food and Drug Admin istra tion. Not Available [facility] ([facility]) [address] [place], [address], 02/12/2024 19:07:32 02/09/20 24 02/11/2024 NUSWA B VAGIN ITIS PLUS (VG+) yaquelin albicans, DARRELL Negati ve negati ve Not Available [facility] ([facility]) [address] [place], [address], 02/12/2024 19:07:32 02/09/20 24 02/11/2024 NUSWA B VAGIN ITIS PLUS (VG+) yaquelin glabrata, DARRELL Negati ve negati ve Not Available [facility] ([facility]) [address] [place], [address], 02/12/2024 19:07:32 02/09/20 24 02/12/2024 NUSWA B VAGIN ITIS PLUS (VG+) trich vag by DARRELL Negati ve negati ve Not Available [facility] ([facility]) [address] [place], [address], 02/12/2024 19:07:32 02/09/20 24 02/12/2024 NUSWA B VAGIN ITIS PLUS (VG+) chlamydia trachomatis, DARRELL Negati ve negati ve Not Available [facility] ([facility]) [address] [place], [address], 02/12/2024 19:07:32 02/09/20 24 02/12/2024 NUSWA B VAGIN ITIS PLUS (VG+) neisseria gonorrhoeae, DARRELL Negati ve negati ve Not Available [facility] ([facility]) [address] [facility], [place], [address], 02/12/2024 19:07:32 02/09/20 24 02/10/2024 IGP, APTIM A HPV, RFX 16/18 ,45 HPV aptima Negati ve negati ve This nucle ic acid ampli ficat ion test detec ts fourt een high- risk HPV types (16,1 8,31, 33,35 ,39,4 5,51, 52,56 ,58,5 9,66, 68) witho ut diffe renti ation . Not Available [facility] ([facility]) [address] [facility], [place], [address], 02/14/2024 15:11:39 02/09/20 24 02/14/2024 IGP, APTIM A HPV, RFX 16/18 ,45 diagnosis: Commen t NEGAT GAMALIEL FOR INTRA EPITH ELIAL LESIO N OR KISHORE ESCOBAR . Not Available [facility] ([facility]) [address] [facility], [place], [address], 02/14/2024 15:11:39 02/09/20 24 02/14/2024 IGP, APTIM A HPV, RFX 16/18 ,45 specimen adequacy: Commen t Satis facto ry for evalu ation . Endoc ervic al and/o r squam ous metap lasti c cells (endo cervi elba compo nent) are prese nt. Not Available [facility] ([facility]) [address] [facility], [place], [address], 02/14/2024 15:11:39 02/09/20 24 02/14/2024 IGP, APTIM A HPV, RFX 16/18 ,45 clinician provided ICD10: Commen t Z01.4 19 Not Available [facility] ([facility]) [address] [facility], [place], [address], 02/14/2024 15:11:39 02/09/20 24 02/14/2024 IGP, APTIM A HPV, RFX 16/18 ,45 performed by: Mary Jane persaud Cytogiovany adair (ASCP ) Not Available [facility] ([facility]) [address] [place], [address], 02/14/2024 15:11:39 02/09/20 24 02/14/2024 IGP, APTIM A HPV, RFX 16/18 ,45 . . Not Available [facility] ([facility]) [address] [place], [address], 02/14/2024 15:11:39 02/09/20 24 02/14/2024 IGP, APTIM A HPV, RFX 16/18 ,45 note: Mary Jane adair The Pap smear is a scree stefan test desgisella samir to aid in the detec tion of remberto ligna nt and malig nant condi tions of the uteri ne cervi x. It is not a diagn ostic proce dure and shoul d not be used as the sole means of detec ting cervi elba cance r. Both false -posi tive and false -nega tive repor ts do occur . Not Available [facility] ([facility]) [address] [place], [address], 02/14/2024 15:11:39 02/09/20 24 02/14/2024 IGP, APTIM A HPV, RFX 16/18 ,45 test methodology: Mary Jane adair This liqui d based ThinP rep(R ) pap test was scree samir with the use of an image guide diana oquendo Not Available [facility] ([facility]) [address] [place], [address], 02/14/2024 15:11:39 02/09/20 24 02/14/2024 IGP, APTIM A HPV, RFX 16/18 ,45 HPV genotype reflex Commen t Crite maranda not met, HPV Genot ype not perfo rmed. Not Available [facility] ([facility]) [address] [place], [address], 02/14/2024 15:11:39 11/20/19 25 11/21/2024 TSH+F REE T4 TSH 0.776 uIU/m L 0.450- 4.500 Not Available [facility] ([facility]) [address] [place], [address], 11/21/2024 13:13:45 11/20/19 25 11/21/2024 TSH+F REE T4 T4,free(dire ct) 1.24 NG/dL 0.82-1 .77 Not Available [facility] ([facility]) [address] [place], [address], 11/21/2024 13:13:45 11/20/19 25 11/21/2024 LIPID PANEL cholesterol, total 164 mg/dL 100-19 9 Not Available [facility] ([facility]) [address] [place], [address], 11/21/2024 13:13:46 11/20/19 25 11/21/2024 LIPID PANEL triglyceride s 325 mg/dL 0-149 above high normal Not Available [facility] ([facility]) [address] [place], [address], 11/21/2024 13:13:46 11/20/19 25 11/21/2024 LIPID PANEL HDL cholesterol 40 mg/dL >39 Not Available [facility] ([facility]) [address] [place], [address], 11/21/2024 13:13:46 11/20/19 25 11/21/2024 LIPID PANEL VLDL cholesterol elba 52 mg/dL 5-40 above high normal Not Available [facility] ([facility]) [address] [place], [address], 11/21/2024 13:13:46 11/20/19 25 11/21/2024 LIPID PANEL LDL chol calc ([facility]) 72 mg/dL 0-99 Not Available [facility] ([facility]) [address] [place], [address], 11/21/2024 13:13:46 11/20/19 25 11/21/2024 COMP. METAB OLIC PANEL (14) glucose 109 mg/dL 70-99 above high normal Not Available [facility] ([facility]) [address] [place], [address], 11/21/2024 13:13:47 11/20/19 25 11/21/2024 COMP. METAB OLIC PANEL (14) BUN 12 mg/dL 6-20 Not Available [facility] ([facility]) [address] [place], [address], 11/21/2024 13:13:47 11/20/19 25 11/21/2024 COMP. METAB OLIC PANEL (14) creatinine 0.67 mg/dL 0.57-1 .00 Not Available [facility] ([facility]) [address] [place], [address], 11/21/2024 13:13:47 11/20/19 25 11/21/2024 COMP. METAB OLIC PANEL (14) eGFR 116 mL/mi n/1.7 3 >59 Not Available [facility] ([facility]) [address] [place], [address], 11/21/2024 13:13:47 11/20/19 25 11/21/2024 COMP. METAB OLIC PANEL (14) BUN/creatini ne ratio 18 9-23 Not Available [facility] ([facility]) [address] [place], [address], 11/21/2024 13:13:47 11/20/19 25 11/21/2024 COMP. METAB OLIC PANEL (14) sodium 138 mmol/ L 134-14 4 Not Available [facility] ([facility]) [address] [facility] [place], [address], 11/21/2024 13:13:47 11/20/19 25 11/21/2024 COMP. METAB OLIC PANEL (14) potassium 4.1 mmol/ L 3.5-5. 2 Not Available [facility] ([facility]) [address] [facility] [place], [address], 11/21/2024 13:13:47 11/20/19 25 11/21/2024 COMP. METAB OLIC PANEL (14) chloride 101 mmol/ L 96-106 Not Available [facility] ([facility]) [address] [facility] [place], [address], 11/21/2024 13:13:47 11/20/19 25 11/21/2024 COMP. METAB OLIC PANEL (14) carbon dioxide, total 19 mmol/ L 20-29 below low normal Not Available [facility] ([facility]) [address] [facility] [place], [address], 11/21/2024 13:13:47 11/20/19 25 11/21/2024 COMP. METAB OLIC PANEL (14) calcium 9.9 mg/dL 8.7-10 .2 Not Available [facility] ([facility]) [address] [facility] [place], [address], 11/21/2024 13:13:47 11/20/19 25 11/21/2024 COMP. METAB OLIC PANEL (14) protein, total 7.6 g/dL 6.0-8. 5 Not Available [facility] ([facility]) [address] [facility] [place], [address], 11/21/2024 13:13:47 11/20/19 25 11/21/2024 COMP. METAB OLIC PANEL (14) albumin 4.6 g/dL 3.9-4. 9 Not Available [facility] ([facility]) [address] [place], [address], 11/21/2024 13:13:47 11/20/19 25 11/21/2024 COMP. METAB OLIC PANEL (14) globulin, total 3.0 g/dL 1.5-4. 5 Not Available [facility] ([facility]) [address] [place], [address], 11/21/2024 13:13:47 11/20/19 25 11/21/2024 COMP. METAB OLIC PANEL (14) bilirubin, total 0.7 mg/dL 0.0-1. 2 Not Available [facility] ([facility]) [address] [place], [address], 11/21/2024 13:13:47 11/20/19 25 11/21/2024 COMP. METAB OLIC PANEL (14) alkaline phosphatase 92 IU/L 44-121 Not Available [facility] ([facility]) [address] [facility], [place], [address], 11/21/2024 13:13:47 11/20/19 25 11/21/2024 COMP. METAB OLIC PANEL (14) AST (SGOT) 14 IU/L 0-40 Not Available [facility] ([facility]) [address] [place], [address], 11/21/2024 13:13:47 11/20/19 25 11/21/2024 COMP. METAB OLIC PANEL (14) ALT (SGPT) 18 IU/L 0-32 Not Available [facility] ([facility]) [address] [place], [address], 11/21/2024 13:13:47 11/20/19 25 11/21/2024 HEMOG LOBIN A1C hemoglobin A1C 5.8 % 4.8-5. 6 above high normal Predi abete s: 5.7 - 6.4 Diabe dk: >6.4 Glyce prasanth contr ol for adult s with diabe dk: <7.0 Not Available [facility] ([facility]) [address] [place], [address], 11/21/2024 13:13:49 11/20/19 25 11/21/2024 MAGNE SIUM magnesium 2.2 mg/dL 1.6-2. 3 Not Available [facility] ([facility]) [address] [facility], [place], [address], 11/21/2024 13:13:50 11/20/19 25 11/21/2024 CBC WITH DIFFE RENTI AL/PL ATELE T WBC 12.6 x10e3 /uL 3.4-10 .8 above high normal Not Available [facility] ([facility]) [address] [facility], [place], [address], 11/21/2024 13:13:51 11/20/19 25 11/21/2024 CBC WITH DIFFE RENTI AL/PL ATELE T RBC 4.67 x10e6 /uL 3.77-5 .28 Not Available [facility] ([facility]) [address] [place], [address], 11/21/2024 13:13:51 11/20/19 25 11/21/2024 CBC WITH DIFFE RENTI AL/PL ATELE T hemoglobin 15.2 g/dL 11.1-1 5.9 Not Available [facility] ([facility]) [address] [place], [address], 11/21/2024 13:13:51 11/20/19 25 11/21/2024 CBC WITH DIFFE RENTI AL/PL ATELE T hematocrit 45.0 % 34.0-4 6.6 Not Available [facility] ([facility]) [address] [place], [address], 11/21/2024 13:13:51 11/20/19 25 11/21/2024 CBC WITH DIFFE RENTI AL/PL ATELE T MCV 96 fL 79-97 Not Available [facility] ([facility]) [address] [facility], [place], [address], 11/21/2024 13:13:51 11/20/19 25 11/21/2024 CBC WITH DIFFE RENTI AL/PL ATELE T MCH 32.5 pg 26.6-3 3.0 Not Available [facility] ([facility]) [address] [facility], [place], [address], 11/21/2024 13:13:51 11/20/19 25 11/21/2024 CBC WITH DIFFE RENTI AL/PL ATELE T MCHC 33.8 g/dL 31.5-3 5.7 Not Available [facility] ([facility]) [address] [facility], [place], [address], 11/21/2024 13:13:51 11/20/19 25 11/21/2024 CBC WITH DIFFE RENTI AL/PL ATELE T RDW 11.6 % 11.7-1 5.4 below low normal Not Available [facility] ([facility]) [address] [facility], [place], [address], 11/21/2024 13:13:51 11/20/19 25 11/21/2024 CBC WITH DIFFE RENTI AL/PL ATELE T platelets 435 x10e3 /uL 150-45 0 Not Available [facility] ([facility]) [address] [place], [address], 11/21/2024 13:13:51 11/20/19 25 11/21/2024 CBC WITH DIFFE RENTI AL/PL ATELE T neutrophils 55 % notest ab. Not Available [facility] ([facility]) [address] [place], [address], 11/21/2024 13:13:51 11/20/19 25 11/21/2024 CBC WITH DIFFE RENTI AL/PL ATELE T lymphs 33 % notest ab. Not Available [facility] ([facility]) [address], [place], [address], 11/21/2024 13:13:51 11/20/19 25 11/21/2024 CBC WITH DIFFE RENTI AL/PL ATELE T monocytes 8 % notest ab. Not Available [facility] ([facility]) [address] [facility], [place], [address], 11/21/2024 13:13:51 11/20/19 25 11/21/2024 CBC WITH DIFFE RENTI AL/PL ATELE T eos 3 % notest ab. Not Available [facility] ([facility]) [address] [facility], [place], [address], 11/21/2024 13:13:51 11/20/19 25 11/21/2024 CBC WITH DIFFE RENTI AL/PL ATELE T basos 1 % notest ab. Not Available [facility] ([facility]) [address] [facility], [place], [address], 11/21/2024 13:13:51 11/20/19 25 11/21/2024 CBC WITH DIFFE RENTI AL/PL ATELE T neutrophils (absolute) 7.0 x10e3 /uL 1.4-7. 0 Not Available [facility] ([facility]) [address] [place], [address], 11/21/2024 13:13:51 11/20/19 25 11/21/2024 CBC WITH DIFFE RENTI AL/PL ATELE T lymphs (absolute) 4.1 x10e3 /uL 0.7-3. 1 above high normal Not Available [facility] ([facility]) [address] [place], [address], 11/21/2024 13:13:51 11/20/19 25 11/21/2024 CBC WITH DIFFE RENTI AL/PL ATELE T monocytes(ab solute) 1.0 x10e3 /uL 0.1-0. 9 above high normal Not Available [facility] ([facility]) [address] [facility] [facility], [place], [address], 11/21/2024 13:13:51 11/20/19 25 11/21/2024 CBC WITH DIFFE RENTI AL/PL ATELE T eos (absolute) 0.4 x10e3 /uL 0.0-0. 4 Not Available [facility] ([facility]) [address], [place], [address], 11/21/2024 13:13:51 11/20/19 25 11/21/2024 CBC WITH DIFFE RENTI AL/PL ATELE T baso (absolute) 0.1 x10e3 /uL 0.0-0. 2 Not Available [facility] ([facility]) [address] [facility] [facility], [place], [address], 11/21/2024 13:13:51 11/20/19 25 11/21/2024 CBC WITH DIFFE RENTI AL/PL ATELE T immature granulocytes 0 % notest ab. Not Available [facility] ([facility]) [address] [facility], [place], [address], 11/21/2024 13:13:51 11/20/19 25 11/21/2024 CBC WITH DIFFE RENTI AL/PL ATELE T immature grans (abs) 0.0 x10e3 /uL 0.0-0. 1 Not Available [facility] ([facility]) [address] [place], [address], 11/21/2024 13:13:51 11/20/19 25 11/21/2024 VITAM IN D, 25-HY DROXY vitamin D, 25-hydroxy 21.9 NG/mL 30.0-1 00.0 below low normal Vitam in D defic iency has been defin ed by the Insti tute of Medic ine and an Endoc rine Socie ty pract ice guide line as a level of serum 25-OH vitam in D less than 20 ng/mL (1,2) . The Endoc rine Socie ty went on to furth er defin e vitam in D insuf ficie ncy as a level betwe en 21 and 29 ng/mL (2). 1. IOM (Inst itute of Medic ine). 2010. Dieta ry refer ence intak es for calci um and D. Patricia scott [place]: The [facility] . 2. Dorothy dooley MF, Dorcas muniz [place], Ghada off-F errar i HOANG, et al. Evalu ation , treat ment, and preve ntion of vitam in D defic iency : an Endoc rine Socie ty clini elba pract ice guide line. JCEM. 2010; 96(7) :1911 -30. Not Available [facility] ([facility]) [address], [place], [address], 11/21/2024 13:13:53 11/20/19 25 11/21/2024 HIV AB/P2 4 AG WITH REFLE X HIV Ab/P24 Ag screen NON REACTI VE nonrea ctive HIV-1 /HIV- 2 antib odies and HIV-1 p24 antig en were NOT detec breezy. There is no labor atory evide nce of HIV infec tion. HIV Negat gamaliel Not Available [facility] ([facility]) [address] [facility], [place], [address], 11/21/2024 13:13:54 03/05/20 24 02/29/2024 US, nuvia x, caterina s, lower extre mity No observ ation record ed. [email or web address] [facility] [address], [place], [address], 03/20/2024 17:01:09 10/30/19 25 10/30/2024 XR, chest , 2 view No observ ation record ed. [email or web address] [facility] [address], [place], [address], 11/06/2024 13:58:26 Result Notes None recorded. 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, [place], [address], [place] - [facility] 2 11:32:57 Polycyst ic ovary syndrome 893981615 Completed 2019 Emely Graham MD Attn: Davidsincere guzman,[address] [facility], [place], [address], [place] [facility] 2 11:32:57 Pregnanc y 80471464 Completed 202001/02/2021 Viola Perry [place] - [facility] 3 11:57:51 Past pregnanc y history of miscarri age 625641722 Completed 2020 The MTHFR is NEGATIVE (No mutation identifi ed) Emely Graham MD Attn: Juan guzman,[address] [facility], [place], [address], [place] [facility] 2 11:32:57 Past pregnanc y history of miscarri age 982213973 Active 2020 The MTHFR is NEGATIVE (No mutation identifi ed) Emely Graham MD Attn: Juan thomas,[address] [facility], [place], [address], [place] [facility] 2 11:32:57 Testoste fannie level above referenc e range 390897435 Active 2020 Emely Graham MD Attn: Juan thomas,[address] [facility], [place], [address], [place] [facility] 2 11:32:57 Testoste fannie level above referenc e range 165333091 Completed 2020 Emely Graham MD Attn: Juan thomas,[address] [facility], [place], [address], [place] [facility] 2 11:32:57 Pregnanc y 82425750 Completed 202105/30/2023 Viola Perry [place] [facility] 3 11:57:51 Varicose veins in pregnanc y 5256368708 Completed 2022 Viola Orlando [place] [facility] 3 11:57:47 Varicose veins in pregnanc y 3457323323 Active 2022 Viola [place] [facility] 3 11:57:47 Macrocyt osis 372703587 Active 2022 FeS Viola Perry, [place] [facility] 3 11:57:47 Macrocyt osis 042952285 Completed 2022 FeS Viola Orlando [place] [facility] 3 11:57:47 Anemia of pregnanc y 13077826 Completed 2022 B12 suppleme ntation Viola [place] [facility] 3 11:57:47 Anemia of pregnanc y 16586672 Active 2022 B12 suppleme ntation Viola [place] [facility] 3 11:57:47 Venous insuffic iency of lower limb 998442304 Active 2023 PETROS CABRERA PA-C Attn: Accountin g,[address] [facility], [place], [address], [place] [facility] 4 16:57:32 Vitamin D deficien cy 17750600 Active 2024 PETROS CABRERA PA-C Attn: Accountin g,[address] [facility], [place], [address], [place] [facility] 5 09:12:48 Mixed hyperlip idemia 752776831 Active 2024 PETROS CABRERA PA-C Attn: Accountin g,[address] [facility], [place], [address], [place] [facility] 5 09:13:43 Prediabe dk 764282633 Active 2024 PETROS CABRERA PA-C Attn: Juan guzman,[address] [facility], [place], [address], [facility] 5 09:13:45 Problem Notes None recorded. Procedures Surgical History Date Name Laterality Status Provider Name and Address Organization Details Recorded Time 02/09/2024 Date of Last Pap Smear completed Aleah Pike MA [facility] 10/03/2024 09:06:15 Imaging Results None recorded. Procedure Notes None recorded. Medical Equipment None Reported. Allergies Allergen ID Allergen Name Allergen Category Reaction Reaction Severity Criticality Documentation Date Start Date Code Code System Note Provider Name and Address Organization Details Recorded Time 870870 latex environme nt,medica tion itching moderate Not available 11/30/2017 60472 91 RxNorm Viola Perry MA null, [facility] 8 12:27:00 Medications Name Sig Start Date Stop Date Status Note LastModified by Organization Details LastModified Time multivitami n tablet Take 1 tablet every day by oral route. 01/01 completed Not Available Not Available Not Available metformin 500 mg tablet Take 1 tablet twice a day by oral route. 01/01 completed Not Available Not Available Not Available atorvastati n 20 mg tablet Take 1 tablet every day by oral route. 01/01 completed Not Available Not Available Not Available ibuprofen 800 mg tablet Take 1 tablet 3 times a day by oral route as directed. 10/13 completed Not Available Not Available Not Available spironolact one 100 mg tablet Take 1 tablet twice a day by oral route. 01/01 completed Not Available Not Available Not Available Zithromax Z-Tod 250 mg tablet TAKE 2 TABLETS (500 MG) BY ORAL ROUTE ONCE DAILY FOR 1 DAY THEN 1 TABLET (250 MG) BY ORAL ROUTE ONCE DAILY FOR 4 DAYS 02/01 completed Not Available Not Available Not Available cyanocobala min (vit B-12) 1,000 mcg tablet Take 1 tablet every day by oral route for 30 days. 05/30 completed Not Available Not Available Not Available cimetidine 800 mg tablet Take 1 tablet every day by oral route. 01/01 completed Not Available Not Available Not Available aspirin 81 mg tablet,bhavik yed release Take 1 tablet twice a day by oral route. 10/13 completed Not Available Not Available Not Available Vitamin tablet Take 1 tablet every day by oral route as directed for 90 days. 05/25 completed Not Available Not Available Not Available OneTouch Ultra Test strips TEST BLOOD SUGAR THREE TIMES DAILY active Not Available Not Available No t Available cephalexin 500 mg capsule TAKE 1 CAPSULE BY MOUTH EVERY 12 HOURS FOR 7 DAYS 10/03 completed Not Available Not Available Not Available cyanocobala min (vit B-12) 1,000 mcg/mL injection solution Inject 1 mL every month by subcutane ous route. 05/30 completed Not Available Not Available Not Available progesteron e micronized 200 mg capsule Take 1 capsule twice a day by oral route. 10/13 completed Not Available Not Available Not Available nitroglycer in 0.[address] ONE tablet UNDER TONGUE AT ONSET of CHEST pain, MAY take UP TO THREE WITHIN 15 minutes active Not Available Not Available No t Available docusate sodium 100 mg capsule Take 1 capsule(s ) every day by oral route for 42 days. 02/08 completed Not Available Not Available Not Available folic acid 1 mg tablet Take 2 tablets twice a day by oral route as directed. 10/13 completed Not Available Not Available Not Available ibuprofen 600 mg tablet 02/08 completed Not Available Not Available Not Available letrozole 2.5 mg tablet Take 1 tablet every day by oral route for 5 days. 01/01 completed Not Available Not Available Not Available ondansetron 4 mg disintegrat ing tablet DISSOLVE 1 TABLET IN MOUTH EVERY 8 HOURS 02/08 completed Not Available Not Available Not Available fluticasone propionate 50 mcg/actuati on nasal spray,suspe nsion USE 1 SPRAY(S) IN EACH NOSTRIL ONCE DAILY 02/08 completed Not Available Not Available Not Available amoxicillin 875 mg-potassiu m clavulanate 125 mg tablet TAKE 1 TABLET BY MOUTH EVERY 12 HOURS 11/02 completed Not Available Not Available Not Available oxycodone 5 mg tablet TAKE 1 TABLET BY MOUTH EVERY 6 HOURS NEEDED FOR PAIN (POR FAVOR, KATIE WOODS) 02/08 completed Not Available Not Available Not Available Vitamin 27 mg iron-0.8 mg tablet 10/13 completed Not Available Not Available Not Available Tri-Sprinte c (28) 0.18 mg(7)/0.215 mg(7)/0.25 mg(7)-0.035 mg tablet Take 1 tablet PO daily. 05/22 completed Not Available Not Available Not Available 1 tablet daily 02/08 completed Not Available Not Available Not Available Seasonique 0.15 mg-30 mcg (84)/10 mcg(7) tablets,3 month dose pack Take 1 tablet every day by oral route. 01/01 completed Not Available Not Available Not Available Calcium 600 + D(3) 600 mg-10 mcg (400 unit) tablet Take 1 tablet twice a day by oral route. 10/13 completed Not Available Not Available Not Available cholecalcif rea (vitamin D3) 1,250 mcg (50,000 unit) capsule Take 1 capsule every week by oral route. 2024 active Not Available Not Available Not Avai lable FeroSul 325 mg (65 mg iron) tablet TAKE ONE TABLET BY MOUTH EVERY DAY 02/08 completed Not Available Not Available Not Available fenofibrate 54 mg tablet Take 1 tablet every day by oral route at bedtime for 30 days. 2024 active Not Available Not Available Not Avai lable Calcium with Vitamin D3 600 mg (carbonate) -10 mcg (400 unit) capsule Take 1 capsule twice a day by oral route. 05/25 completed Not Available Not Available Not Available Lo Loestrin Fe 1 mg-10 mcg (24)/10 mcg (2) tablet TAKE ONE TABLET BY MOUTH EVERY DAY 2024 active Not Available Not Available Not Avai lable 28 mg iron-800 mcg tablet Take 1 tablet every day by oral route. 01/01 completed Not Available Not Available Not Available calcium 600 mg (as carbonate)- vitamin D3 20 mcg (800 unit) tablet Take 1 tablet twice a day by oral route. 01/01 completed Not Available Not Available Not Available [facility] 0.25 mg-0.035 mg tablet TAKE ONE TABLET BY MOUTH EVERY DAY 10/13 completed Not Available Not Available Not Available Classic 28 mg iron-800 mcg tablet TAKE 1 TABLET BY MOUTH ONCE DAILY 10/13 completed Not Available Not Available Not Available Slynd 4 mg (28) tablet TAKE ONE TABLET BY MOUTH AT BEDTIME 02/07 completed Not Available Not Available Not Available Vitals Date Recorded Body height Body mass index (BMI) Body weight Body temperature Oxygen saturation Heart rate Systolic And Diastolic Provider Name and Address Organization Details Last Updated DateTime 5 151.77 cm 27.6 kg/m2 35530.0 1 g 98.4 [degF] 97 % 87 /min 120/64 mm[Hg] Raquel Tavares MA [facility] 5 11:44:47 Date Recorded Body height Body mass index (BMI) Body weight Oxygen saturation Heart rate Systolic And Diastolic Provider Name and Address Organization Details Last Updated DateTime 4 151.77 cm 28.8 kg/m2 60368.9 2 g 98 % 90 /min 116/68 mm[Hg] Raquel Tavares MA [facility] 4 09:56:35 Date Recorded Body height Body mass index (BMI) Body weight Systolic And Diastolic Provider Name and Address Organization Details Last Updated DateTime 05/30/2023 151.77 cm 28.8 kg/m2 39996.486 02 g 118/70 mm[Hg] Viola Perry MA [facility] 05/30/2023 11:59:40 Date Recorded Body height Body mass index (BMI) Body weight Systolic And Diastolic Provider Name and Address Organization Details Last Updated DateTime 06/27/2023 151.77 cm 28.9 kg/m2 96973.08 g 100/62 mm[Hg] Dora Negrete MA [facility] 06/27/2023 09:55:36 Date Recorded Body height Body mass index (BMI) Body weight Oxygen saturation Heart rate Systolic And Diastolic Provider Name and Address Organization Details Last Updated DateTime 4 151.77 cm 27.2 kg/m2 29667.7 5 g 98 % 72 /min 100/66 mm[Hg] Aleah Pike MA [place] - [facility] 4 09:08:52 Social History Question Answer Notes LastModified by Organizat ion Details LastModified Time Tobacco Smoking Status Never Smoker Viola Perry MA null, [place] - [facility] 11/30/2017 12:34:20 Do You Have An Advance Directive? No Information n ot available 11/30/2017 Is Blood Transfusion Acceptable In An Emergency? Yes Information not available 11/30/2017 What Is Your Level Of Caffeine Consumption? Moderate Information not available 11/30/2017 How Much Tobacco Do You Chew? None Information not available 11/30/2017 In The 14 Days Before Symptom Onset, Have You Had Close Contact With A Laboratory-confirm ed COVID-19 While That Case Was Ill? No Information n ot available 01/16/2021 In The 14 Days Before Symptom Onset, Have You Had Close Contact With A Person Who Is Under Investigation For COVID-19 While That Person Was Ill? No Information not available 01/16/2021 Have You Been To An Area Known To Be High Risk For COVID-19? No Information not available 01/16/2021 What Type Of Diet Are You Following? REGULAR Information n ot available 11/30/2017 Which Illicit Or Recreational Drugs Have You Used? None Information not available 11/30/2017 Education 2 Year College Information not available 11/30/2017 What Is The Highest Grade Or Level Of School You Have Completed Or The Highest Degree You Have Received? [id number] Information not available 01/01/2021 Live Alone Or With Others? With Others Information not available 12/05/2019 What Was The Date Of Your Most Recent Tobacco Screening? 11/20/2024 [email or web address] Information not available 11/20/2024 How Many Children Do You Have? 1 Information not available 11/30/2017 Performs Monthly Self-breast Exam? Yes Information no t available 11/30/2017 Do You Use Protection During Sex? Always Information not available 11/30/2017 What Is Your Relationship Status? Domestic Partner Information not available 01/01/2021 Do You Use Your Seat Belt Or Car Seat Routinely? Yes Information not available 01/01/2021 Seat Belts Used Routinely Yes Information not available 11/30/2017 Are You Sexually Active? Yes Information not available 11/30/2017 Do You Have Smoke And Carbon Monoxide Detectors In Your Home? Yes Information not available 01/01/2021 Are You Passively Exposed To Smoke? No Information no t available 01/01/2021 How Much Tobacco Do You Smoke? No Information not available 08/30/2019 General Stress Level Low Information not available 11/30/2017 Do You Use Sunscreen Routinely? No Information not available 11/30/2017 Has Tobacco Cessation Counseling Been Provided? Yes Information not available 02/03/2023 On What Date Was Tobacco Cessation Counseling Provided? 06/27/2023 Information not available 06/27/2023 How Many Years Have You Smoked Tobacco? 0 Information not available 08/30/2019 Sex: Female Functional Status Question Answer Note LastModified by Organizat ion Details LastModified Time Do you use any illicit or recreational drugs? No Information not available 01/01/2021 Do you or have you ever used any other forms of tobacco or nicotine? No Information not available 02/26/2021 What is your level of alcohol consumption? None Information not available 11/30/2017 Do you or have you ever used smokeless tobacco? Never used smokeless tobacco Information not available 08/30/2019 Are you currently employed? No Information not available 11/30/2017 What is your occupation? unemployed Information not available 11/30/2017 Do you or have you ever used e-cigarettes or vape? Never used electronic cigarettes Information not available 08/30/2019 What is your exercise level? None Information not available 11/30/2017 Mental Status None recorded. Family History Relationship Description Onset Age of this Age Resolved Age Notes LastModified by Organization Details LastModified Time Mother No current problems or disability Not available 11/17 12:34:10 Father Myocardial infarction [email or web address] Not available 11/20 12:01:32 Medical History Condition Response Coronary Artery Disease N Other N Atrial Fibrillation N High Blood Pressure N Breast Cancer N Thyroid Problems N Kidney or Bladder Problems N Lung Disease N Depression N COPD N Blood Clots N GI Problems N Breast Problem N Eating Disorder N Anemia N Anesthesia Complications N Heart Attack ([place]) N Anxiety Disorder N Diabetes N Ovarian Cancer N Muscle, Joint, or Bone Problems N Blood Transfusions N Seizures/Epilepsy N Infertility N Polyps N Acid Reflux (GERD) N Cancer N Stroke N Abuse/Domestic Violence N Asthma N Allergies N Endometriosis N High Cholesterol N Hepatitis N Liver Disease N Heart Disease N Pre-Eclampsia N Heart Failure N Osteoporosis N Gynecological History Statement/Question Response Date of LMP 10/10/2024 STIs/STDs N HPV Vaccine Y Duration of Flow (days) 3 Age at Menarche 10 Current Control Method BCPs Age at First Child 26 Sexually Active? Y Menses Monthly N Date of Last Pap Smear 02/09/2024 Sexual Problems? N LMP Definite Desired Control Method None Obstetrics History GPAL:G 4 P 3 0 1 3 Type Value Multiple Births 0 Full Term 3 Induced 0 Spontaneous 1 Premature 0 Living 3 Ectopics 0 Total 4 Immunizations Vaccine Type Date Status Note Provider Nam e and Address Organization Details Recorded Time HPV9 8 completed Not Available [facility] 11/03/2019 02:47:20 HPV9 8 completed Not Available [facility] 11/03/2019 02:35:21 HPV9 8 completed Not Available [facility] 11/03/2019 02:46:09 Tdap 1 completed Viola [place], [place] [facility] 05/25/2021 13:40:38 COVID-19, mRNA, LNP-S, PF, 30 mcg/0.3 mL dose 1 completed Eri Queen [place] [facility] 08/25/2021 15:54:34 COVID-19, mRNA, LNP-S, PF, 30 mcg/0.3 mL dose 1 completed Eri Queen [place] [facility] 09/15/2021 15:41:47 Influenza, split virus, quadrivalent, preservative 3 completed Viola [place] [facility] 11/11/2022 17:26:13 Tdap 3 completed Viola [place] [facility] 03/09/2023 15:26:59 Past Encounters Encounter ID Performer Location Encounter Start Date Encounter Closed Date Diagnosis/Indication Diagnosis SNOMED-CT Code Diagnosis ICD10 Code Diagnosis IMO Codes Diagnosis Note [id number] MD Summer Balderas (ADULT MANAGER) [address] [place] [id number] 11/30/2017 11:28:15 11/30/2017 14:54:34 Gynecologic examination 60421968 Z01.419 Exposure t o sexually transmissible disorder 027737527 Z20.2 Family richi nning surveillance 819186640 Z30.09 Will start OCPs Active or passive immunization 722489740 Z23 Starting HPV vaccine series [id number] MD Summer Balderas (ADULT MANAGER) [address] [place] [id number] 02/01/2018 15:39:25 02/01/2018 16:36:07 Administration of viral vaccine 46137888 Z23 Family richi nning surveillance 912329912 Z30.09 Will start OCPs [id number] [facility] ([facility]) [address] [place] [id number] 0 06/07/2018 15:36:20 06/07/2018 16:55:22 Family planning surveillance 055251065 Z30.09 Will start OCPs Administra tion of viral vaccine 21445833 Z23 [id number] MD Summer Balderas (ADULT MANAGER) [address] [place] [id number] 01/29/2019 12:23:24 01/29/2019 14:46:01 Family planning surveillance 751537337 Z30.09 Will start OCPs At [facility] ed risk of sexually transmitted infection 174191309 Z20.2 [id number] MD Summer Balderas (ADULT MANAGER) [address] [place] [id number] 05/22/2019 10:29:01 05/23/2019 12:52:47 Gynecologic examination 03815339 Z01.419 Exposure t o sexually transmissible disorder 653634105 Z20.2 Family richi nning surveillance 440855653 Z30.09 [id number] MD Summer Balderas (ADULT MANAGER) [address] [place] [id number] 08/30/2019 16:07:53 08/31/2019 11:44:55 Polycystic ovaries 21606001 E28.2 Family richi nning surveillance 582604216 Z30.09 [id number] TERESA BENITEZ (ADULT MANAGER) [address] [place] [id number] 09/06/2019 15:48:16 09/10/2019 09:52:27 Family planning surveillance 977615764 Z30.09 Polycystic ovaries 06305 008 E28.2 Discussed with pt. Advised her likely the cause of irregular cycles. Recommend that she at least start metformin for ovulation induction. Trying to conceive 41417 9001 Z31.9 Discussed menstrual cycle and timed intercours e. Start metformin as above. May need to start letrozole/ clomid for ovulation induction. RTC in 3 months. [id number] MD Summer Balderas (ADULT MANAGER) [address] [place] [id number] 0 12/05/2019 16:08:34 12/06/2019 13:33:25 Fertility care 640678518 Z31.84 Polycystic ovary syndrome 738410259 E28.2 Polycystic ovaries 60450 008 E28.2 [id number] MD Summer Balderas (ADULT MANAGER) [address] [place] [id number] 06/25/2020 11:25:53 06/26/2020 13:01:55 Complete miscarriage 488670222 O03.9 Polycystic ovary syndrome 118587490 E28.2 Family richi nning surveillance 526400214 Z30.09 [id number] MD Summer Balderas (ADULT MANAGER) [address] [place] [id number] 01/01/2021 13:57:20 01/02/2021 15:58:11 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 01/08 US with EDC 08/08/21. Test results reviewed. OB educationa l packet reviewed and provided to patient. RTC in 2 weeks. [id number] MD [facility] (ADULT MANAGER) [address] [place] [address] [phone] 0 01/29/2021 15:14:31 02/02/2021 07:37:58 Routine care [id number] Z34.90 continue prenatals and vitamins. MTHFR negative Past pregn filiberto history of miscarriage 184102848 Z87.59 B12 injection given in office 01/29/21. [id number] MD Summer Balderas (ADULT MANAGER) [address] [place] [address] [phone] 0 02/26/2021 11:36:31 02/27/2021 10:27:36 Routine care 148898760 Z34.90 continue prenatals and vitamins. MTHFR negative Past pregn filiberto history of miscarriage 289531162 Z87.59 B12 . The MTHFR is NEGATIVE (No mutation identified ) Polycystic ovary syndrome 760842468 E28.2 Testostero ne level above reference range 651801058 E28.1 Alpha-feto protein test - 826775940 Z36.1 [id number] MD Summer Balderas (ADULT MANAGER) [address] [place] [address] [phone] 0 03/26/2021 11:21:47 03/30/2021 06:40:39 Routine care 902653972 Z34.90 Past pregn filiberto history of miscarriage 642925615 Z87.59 B12 . The MTHFR is NEGATIVE (No mutation identified ) Polycystic ovary syndrome 244153040 E28.2 [id number] MD Summer Balderas (ADULT MANAGER) [address] [place] [address] [phone] 0 04/23/2021 10:21:59 05/04/2021 09:18:36 Routine care 415337845 Z34.90 Polycystic ovary syndrome 900497894 E28.2 Past pregn filiberto history of miscarriage 338639351 Z87.59 B12 . The MTHFR is NEGATIVE (No mutation identified ) [id number] MD Summer Balderas (ADULT MANAGER) [address] [place] [address] [phone] 0 05/25/2021 09:55:31 06/02/2021 07:37:35 Routine care 954153675 Z34.90 Past pregn filiberto history of miscarriage 660957045 Z87.59 B12 . The MTHFR is NEGATIVE (No mutation identified ) Polycystic ovary syndrome 426401180 E28.2 Testostero ne level above reference range 733942731 E28.1 screening 2437 24349 Z36.9 [id number] MD Summer Balderas (ADULT MANAGER) [address] [place] [address] [phone] 0 06/10/2021 15:49:23 06/16/2021 06:10:06 Routine care 358143772 Z34.90 Past pregn filiberto history of miscarriage 399235086 Z87.59 B12 . The MTHFR is NEGATIVE (No mutation identified ) [id number] MD Summer Balderas (ADULT MANAGER) [address] [place] [address] [phone] 0 06/24/2021 10:53:29 06/25/2021 16:14:54 Routine care 597783200 Z34.90 Past pregn filiberto history of miscarriage 630163087 Z87.59 B12 . The MTHFR is NEGATIVE (No mutation identified ) [id number] MD Summer Balderas (ADULT MANAGER) [address] [place] [address] [phone] 0 07/20/2021 15:14:00 07/21/2021 10:38:42 Routine care 074113832 Z34.90 Past pregn filiberto history of miscarriage 381360847 Z87.59 B12 . The MTHFR is NEGATIVE (No mutation identified ) [id number] MD Summer Balderas (ADULT MANAGER) [address] [place] [address] [phone] 0 07/27/2021 10:55:15 07/30/2021 14:15:32 Routine care 116393232 Z34.90 Past pregn filiberto history of miscarriage 438696632 Z87.59 B12 . The MTHFR is NEGATIVE (No mutation identified ) [id number] MD Summer Balderas (ADULT MANAGER) [address] [place] [address] [phone] 0 08/03/2021 10:17:34 08/04/2021 13:33:40 Routine care 829884262 Z34.90 Past pregn filiberto history of miscarriage 191143257 Z87.59 B12 . The MTHFR is NEGATIVE (No mutation identified ) Polycystic ovary syndrome 908903094 E28.2 [id number] MD Summer Balderas (ADULT MANAGER) [address] [place] [address] [phone] 0 08/25/2021 15:16:27 09/01/2021 15:53:50 Polycystic ovary syndrome 011707770 E28.2 care 04057781 8 Z39.2 31 yo f. Male (Pérez) delivered 08/07/21 via SVB with no episiotomy or tears. Desires Slynd for BC. Breast and bottle feeding. Family richi nning surveillance 060661180 Z30.09 [id number] TERESA DEY (Peds) [address] [place] [address] [phone] 0 08/25/2021 15:17:53 08/26/2021 19:10:49 Administration of SARS-CoV-2 mRNA vaccine 7576836637 Z23 [id number] TERESA DEY (Peds) [address] [place] [address] [phone] 0 09/15/2021 15:21:40 09/16/2021 10:08:50 Administration of SARS-CoV-2 mRNA vaccine 8387316706 Z23 [id number] FANY HARLEY, DO [facility] (ADULT MANAGER) [address] [place] [address] [phone] 0 11/19/2021 08:42:40 11/26/2021 13:51:02 Contraception care 471812590 Z30.40 Discussed R/B/I/A of multiple contracept gamaliel options. Educationa l materials provided and all questions and concerns were addressed. Patient desires monthly menses with OCP. Will switch from Slynd to [employer]. [id number] [facility] (ADULT MANAGER) [address] [place] [address] [phone] 0 10/13/2022 14:03:11 10/19/2022 15:25:46 Routine care 289047078 Z34.91 32yo HF with h/o PCOS presenting for initial OB visit at approx 11 weeks. LMP 07/28/2022 , definite, though pt reports irregular cycle. Feeling well, denies bleeding, discharge, cramping, fevers. Bedside dating US performed today with discrepanc y in dating (11w vs 8+5w). Will send for formal US to confirm EDC. Initial labs drawn today. OB education provided and SAB precaution s discussed. RTC in 4 weeks, cfDNA at next visit. Administra tion of influenza vaccine 73367559 Z23 [id number] MD Kirt Mckeon 14 IM 4 [facility] [address] Martin [address] [place] [address] [phone] 1 11/02/2022 17:00:07 11/04/2022 03:46:52 74462503 Z33.1 Patient presented with no active medication related problems. She was counselled to continue use of the vitamin through the period and she did not have any questions. [id number] TERESA BENITEZ (ADULT MANAGER) [address] [place] [address] [phone] 0 11/10/2022 15:09:28 11/11/2022 09:42:48 Routine care 094789207 Z34.91 32yo HF with h/o PCOS presenting for MIRELLA at 12+4 weeks. Feeling well, denies bleeding, discharge, cramping, fevers. US 10/20/22 with viable IUP at 9+4 weeks. Initial labs reviewed, wnl. cfDNA drawn today. OB education provided and SAB precaution s discussed. RTC in 4 weeks. [id number] TERESA BENITEZ (ADULT MANAGER) [address] [place] [address] [phone] 0 12/08/2022 10:02:11 12/16/2022 09:58:31 Routine care 329665214 Z34.92 32yo HF presenting for MIRELLA at 16+4 weeks. Feeling well, denies bleeding, discharge, contractio ns, LOF. MSAFP drawn today. Anatomy US ordered. RTC in 4 weeks. [id number] TERESA BENITEZ (ADULT MANAGER) [address] [place] [address] [phone] 0 01/05/2023 10:09:31 01/13/2023 11:39:54 Routine care 747005225 Z34.92 32yo HF presenting for MIRELLA at 20+4 weeks. Feeling well, denies bleeding, discharge, contractio ns, LOF, h/a, vision changes. Anatomy US preformed 01/04/23 with normal anatomy scan, EFW 89%, right lateral placenta, GIGI wnl. OB edu and anticipato ry guidance discussed. RTC in 4 weeks. [id number] TERESA BENITEZ (ADULT MANAGER) [address] [place] [address] [phone] 0 02/03/2023 10:11:28 02/15/2023 10:18:21 Routine care 453738518 Z34.92 32yo HF presenting for MIRELLA at 24+5 weeks. Feeling well, denies bleeding, discharge, contractio ns, LOF, h/a, vision changes. Anatomy US preformed 01/04/23 with normal anatomy scan, EFW 89%, right lateral placenta, GIGI wnl. OB edu and anticipato ry guidance discussed. RTC in 4 weeks. Varicose v eins in 4837552690 O22.02 Pt reports pain, swelling on left legPE: varicositi es on bilateral extremitie s from thigh down (Left leg > right leg)Compre ssion stockings ordered [id number] TERESA BENITEZ (ADULT MANAGER) [address] [place] [address] [phone] 0 03/08/2023 08:26:32 03/09/2023 11:13:15 Routine care 184628194 Z34.93 32yo HF presenting for MIRELLA at 29+3 weeks. Feeling well, denies bleeding, discharge, contractio ns, LOF. Anatomy US preformed 01/04/23 with normal anatomy scan, EFW 89%, right lateral placenta, GIGI wnl. 1 hour GCT completed today. Tdap administer ed. OB edu and anticipato ry guidance discussed. RTC in [address] Schulz. Varicose v eins in 9699990813 O22.02 Pt reports pain, swelling on left legPE: varicositi es on bilateral extremitie s from thigh down (Left leg > right leg)Contin ue compressio n stockings [id number] MD Summer AQUINO (ADULT MANAGER) [address] [place] [address] [phone] 0 03/24/2023 10:07:44 04/05/2023 10:21:29 Routine care 770776388 Z34.93 Ina is a 32y/o presenting @ 31.5 dated by US at 9.4; here for routine OB exam. Preg complicate d by: varicose veins in . She has no significan t concerns today and reports normal antepartum symptoms of . She endorses good movement. She denies vaginal bleeding, vaginal discharge, loss of fluid, or contractio ns. She has not had a visit to ED or Triage since last appointmen t. - anticipato ry guidance provided- continue PNV- follow-up pending results or in 2 weeks OB plan: 32 y/o ; PRANAY 05/21/2023 based on USProblem List: INITIAL LABS Date: 10/13/22Bl ood Type: ORh Type: positiveAn tibody Screen: negCBC: 12.4/13.6/ 39.6VDRL/R AL: non-reacti veUrine Culture: normalHBsA g: negativeHe pC: non-reacti veHIV: Non-reacti veRubella: immuneVari lata: immuneCF:n egSS: neg Dating US: DateLMP: 07/28/22 GA 10.2 PRANAY: 05/04/23 Patient is sure of dating.DUS : Date 10/13/22 AUA: 8.5 PRANAY: 05/21/23 Discrepanc y >10daysEDD : 05/21/23Ba sed on US Pap: UTDVaginal Cultures: Yeast: neg;BV: negGC:neg; Chlamydia: neg;Trich: neg Sequential /QUAD/Mate rniT21:neg ; consistent with male Anatomy Scan: concordant with dates; unremarkab le 26-28 weeks: Date 03/08/2023 GTT: Pass; 3HR GTT not warrantedC BC: 11.0/11.6/ 37.1/316Ur inalysis: negHIV:non -reactiveR AL non-reacti veTdap:giv en Date:Rhoga m: unwarrante d Date: 36 weeksVagin al Cultures: Yeast: ;BV:GC:; Chlamydia: ;Trich:GBS Limited US: Varicose v eins in 1758501917 O22.02 Pt reports pain, swelling on left legPE: varicositi es on bilateral extremitie s from thigh down (Left leg > right leg)Contin ue compressio n stockings [id number] MD Summer AQUINO (ADULT MANAGER) [address] [place] [address] [phone] 04/14/2023 10:22:17 04/15/2023 13:55:28 Routine care 065137856 Z34.83 32 yo @ 34.5 wks by 9 wk US not c/w LMP here for MIRELLA. (PRANAY 05/21/2023). Preg notable for: varicose veins in , microcytos is without anemia. No complaints today. Endorses good FM. no VB or DC. no LOF. no ctx. Compliant with PNV. CBC on 03/08 showing macrocytos is, Hgb normal. Check Vitamin b12/folate levels. (AFP negative for OSB). Anticipato ry guidance provided. RTC in 1 week for MIRELLA. (GBS, HIV, RPR, Nuswab at that visit). Macrocytos is - no anemia 502990743 D75.89 lab not working today, blood work to be done at next OB visit. [id number] MD Summer AQUINO (ADULT MANAGER) [address] [place] [address] [phone] 0 04/25/2023 11:28:53 05/05/2023 12:33:23 Routine care 049851407 Z34.93 32 y/o @ 36.2 wks by 9 wk US not c/w LMP here for MIRELLA. (PRANAY 05/21/2023). Preg notable for: varicose veins in , microcytos is without anemia, PCOS. Arrived to clinic for routine OB visit. Denies ER/triage visit since last appt. No LOF or vaginal bleeding. No Hoang/vison changes. No LOF or vaginal bleeding. Reports to normal movement. She does not have any concerns. Vitamin B12/folate checked today. Obtain GBS, Nuswab today. Anticipato ry guidance provided. RTC in 1 week for MIRELLA. Macrocytosis 192091386 D 75.89 - f/u labs for resolution - patient taking vitamin Past pregn filiberto history of miscarriage 117380031 Z87.59 - Please do not mention miscarriag e around FOB [id number] MD Summer Mckeon (ADULT MANAGER) [address] [place] [address] [phone] 05/02/2023 10:44:31 05/09/2023 15:11:46 Iron deficiency anemia of 911836315 O99.019 - patient iron deficient- HGB at 11.0 at threshold for anemia in - stool softener added for poss. constipati on related to iron intake- patient reports to taking daily Routine an tenatal care 008907419 Z34.93 OB plan: 32 y/o ; PRANAY 05/21/2023 based on LMP supported by dating USPre-Preg betsy Weight: 142, BMI: elevatedPr e-Eclampsi a Risk: neg Problem List:- h/o miscarriag e- anemia of w/ macrocytos is INITIAL LABS Date: 10/13/2022 Blood Type: ORh Type: positiveAn tibody Screen: negCBC: WNLVDRL/RP R: non-reacti veUrine Culture: normalHBsA g: negativeHe pC: non-reacti veHIV: Non-reacti veRubella: immuneVari lata: immuneCF:n egSS: consistent with normal variantUDS : not performed Dating US: Date2022LMP: 07/28/2022 GA 9.3 PRANAY: 05/20/2023 Patient is sure of dating.DUS : Date 10/20/2022 AUA: 9.4 PRANAY: 05/21/2023 Discrepanc y <5 daysEDD: 05/20/2023 Based on LMP supported by US Pap: UTDVaginal Cultures: Yeast: neg;BV: negGC:neg; Chlamydia: neg;Trich: neg Sequential /QUAD/Mate rniT21:neg ; consistent with male Anatomy Scan: concordant with dates; unremarkab le 26-28 weeks:Date 04/25/2023 GTT: Pass; 3HR GTTCBC:11. 2/11.0/34. 5/302Urina lysis: negHIV:non -reactiveR AL non-reacti veTdap:giv en Date:Rhoga m: unwarrante d Date: 36 weeksVagin al Cultures: Yeast: neg;BV: negGC:neg; Chlamydia: neg;Trich: negGBS negativeLi mited US:Situati onal Awareness: Desired delivering facility: other [facility], didn't give answer to where she would like to deliverWil ling to participat e in group visits: noPlanning to breastfeed : yesCircumc ision yesEpidura l noPost-par mike contracept ion discussed and is undecidedO pen to vaccinatio n:Tdap: yesCOVID: yesFlu: yesHome visits ok: no Macrocytosis 249750186 D 75.89 Plan to continue cyanocobal chavez and FeS. Past pregn filiberto history of miscarriage 428692001 Z87.59 - Please do not mention miscarriag e around FOB Varicose v eins in 3064836527 O22.02 Pt reports pain, swelling on left legPE: varicositi es on bilateral extremitie s from thigh down (Left leg > right leg)Contin ue compressio n stockings [id number] MD Summer Vickers (ADULT MANAGER) [facility] [place] [address] 05/09/2023 14:38:22 05/16/2023 16:30:12 Routine care 564632321 Z34.83 OB plan: 32 y/o ; PRANAY 05/21/2023 based on LMP supported by dating USPre-Preg betsy Weight: 142, BMI: elevatedPr e-Eclampsi a Risk: neg Problem List:- h/o miscarriag e- anemia of w/ macrocytos is INITIAL LABS Date: 10/13/2022 Blood Type: ORh Type: positiveAn tibody Screen: negCBC: WNLVDRL/RP R: non-reacti veUrine Culture: normalHBsA g: negativeHe pC: non-reacti veHIV: Non-reacti veRubella: immuneVari lata: immuneCF:n egSS: consistent with normal variantUDS : not performed Dating US: Date2022LMP: 07/28/2022 GA 9.3 PRANAY: 05/20/2023 Patient is sure of dating.DUS : Date 10/20/2022 AUA: 9.4 PRANAY: 05/21/2023 Discrepanc y <5 daysEDD: 05/20/2023 Based on LMP supported by US Pap: UTDVaginal Cultures: Yeast: neg;BV: negGC:neg; Chlamydia: neg;Trich: negSequent ial/QUAD/M [id number]: neg; consistent with maleAnatom y Scan: concordant with dates; unremarkab le 26-28 weeks: Date 04/25/2023 GTT: Pass; 3HR GTT ____CBC: 11.2/11.0/ 34.5/302Ur inalysis: negHIV:non -reactiveR AL non-reacti veTdap:giv en Date:Rhoga m: unwarrante d Date: 36 weeksVagin al Cultures: Yeast: neg;BV: negGC:neg; Chlamydia: neg;Trich: negGBS negativeLi mited US:____ Situationa l Awareness: Desired delivering facility: other [facility], didn't give answer to where she would like to deliverWil ling to participat e in group visits: noPlanning to breastfeed : yesCircumc ision yesEpidura l noPost-par mike contracept ion ____ discussed and is undecidedO pen to vaccinatio n:Tdap: yesCOVID: yesFlu: yesHome visits ok: no Iron defic iency anemia of 282749940 O99.019 - patient iron deficient- HGB at 11.0 at threshold for anemia in - stool softener added for poss. constipati on related to iron intake- patient reports to taking daily Macrocytosis 698812706 D 75.89 Plan to continue cyanocobal chavez and FeS. Past pregn filiberto history of miscarriage 962284835 Z87.59 - Please do not mention miscarriag e around FOB Varicose v eins in 7538789094 O22.02 Pt reports pain, swelling on left legPE: varicositi es on bilateral extremitie s from thigh down (Left leg > right leg)Contin ue compressio n stockings [id number] RODRÍGUEZ SCHULZ MD [facility] (ADULT MANAGER) [address] [place] [address] [phone] 05/16/2023 14:11:03 05/19/2023 11:06:07 Routine care 223059614 Z34.93 OB plan: 32 y/o ; PRANAY 05/21/2023 based on LMP supported by dating USPre-Preg betsy Weight: 142, BMI: elevatedPr e-Eclampsi a Risk: neg Problem List:- h/o miscarriag e- anemia of w/ macrocytos is- iron deficiency anemia- Vitamin B12 deficiency INITIAL LABS Date: 10/13/2022 Blood Type: ORh Type: positiveAn tibody Screen: negCBC: WNLVDRL/RP R: non-reacti veUrine Culture: normalHBsA g: negativeHe pC: non-reacti veHIV: Non-reacti veRubella: immuneVari lata: immuneCF:n egSS: consistent with normal variantUDS : not performed Dating US: Date2022LMP: 07/28/2022 GA 9.3 PRANAY: 05/20/2023 Patient is sure of dating.DUS : Date 10/20/2022 AUA: 9.4 PRANAY: 05/21/2023 Discrepanc y <5 daysEDD: 05/20/2023 Based on LMP supported by US Pap: UTDVaginal Cultures: Yeast: neg;BV: negGC:neg; Chlamydia: neg;Trich: negSequent ial/QUAD/M [id number]: neg; consistent with maleAnatom y Scan: concordant with dates; unremarkab le 26-28 weeks: Date 04/25/2023 GTT: Pass; 3HR GTT ____CBC: 11.2/11.0/ 34.5/302Ur inalysis: negHIV:non -reactiveR AL non-reacti veTdap:giv en Date:Rhoga m: unwarrante d 36 weeksVagin al Cultures: Yeast: neg;BV: negGC:neg; Chlamydia: neg;Trich: negGBS negativeLi mited US:____ Situationa l Awareness: Desired delivering facility: other [facility], didn't give answer to where she would like to deliverWil ling to participat e in group visits: noPlanning to breastfeed : yesCircumc ision yesEpidura l noPost-par mike contracept ion ____ discussed and is undecidedO pen to vaccinatio n:Tdap: yesCOVID: yesFlu: yesHome visits ok: noReceived and discussed urinalysis , dipstick results [id number] MD Summer AQUINO (ADULT MANAGER) [address] [place] [address] [phone] 0 05/30/2023 11:26:24 06/07/2023 11:18:33 Contraception care management 844112196 Z30.9 Pt is seeking counseling on contracept ion measures.- Discussed tobacco cessation- Discussed risks and benefits of OCP, Mirena, copper IUD, nexplanon, patch, NuvaRing, and barrier protection - Pt is able to verbalize understand ing of safety and that contracept gamaliel measures other than barrier protection do not prevent HIV or STI tranmissio n- Pt wishes to be on OCP state 0490374 1 Z39.2 Pt is doing well in the state. No concerns for depression . Will have pt f/u in 4 wks for 6wk appointmen t. [id number] MD Summer Price (ADULT MANAGER) [address] [place] [address] [phone] 06/27/2023 09:48:23 06/29/2023 16:10:44 state 99286205 Z39.2 Pt is doing well in the state. No concerns for depression . denies any vaginal discharge, bleeding. No abdominal pain. No chest pain, shortness of breath, swelling of lower extremitie s, changes in vision, headaches. Patient reports she feels safe and is well supported by father baby. Patient to follow-up with her PCP for continued management of her health. [id number] MD Summer Fraga (Adult Med) [address] [place] [address] [phone] 0 02/09/2024 09:49:02 02/10/2024 09:31:19 Body mass index 25-29 - overweight 909446314 Z68.28 BMI 28.8 Depression screening 171 069460 Z13.31 PHQ9- Negative (0 out of 27) Mental hea lth screening 592136254 Z13.39 GAD7- Negative (0 out of 21) Gynecologi c examination 07288410 Z01.419 Sample for PAP takenNuswa b sample taken Varicose v eins of lower extremity 38139760 I83.891 C/W compressio n stockingRe ferral given today [id number] MD Summer Fraga (Adult Med) [address] [place] [address] [phone] 10/03/2024 08:37:20 10/05/2024 12:24:43 Family planning surveillance 780087604 Z30.09 Discussed s/sx of DVT/PE and ER precaution s.Discusse d exercise, diet, taking medication dailyC/w slynd 4mg dailyRTC yearly pelvic exams Depression screening 171 088148 Z13.31 PHQ9- Negative (0 out of 27) Mental hea lth screening 688437271 Z13.39 GAD7- Negative (0 out of 21) Overweight 822065566 E66 .3 BMI 27.2 [id number] Dominga Rodrigues MD [facility] (Adult Med) [address] [place] [address] 11/20/2024 11:13:29 12/12/2024 11:23:10 Electrocardiogram abnormal 282393449 R94.31 Report from ER in chart: normal sinus rhythm- T-wave inversion in lead 3 and AVF, slight T-wave flattening in lead 2. T-wave inversion in V3 and V4Keep appt with Cardiology on 12/03/24Lab s today Adult heal th examination 869721638 Z00.00 Routine labs today Chest pain 99825565 R07. 9 Start nitroglyce rin PRN Overweight 806097350 E66 .3 BMI 27.6 Depression screening 171 759860 Z13.31 PHQ9- Negative (0 out of 27) Mental hea lth screening 117375865 Z13.39 GAD7- Negative (0 out of 21) Health Concerns Section Related Observation LastModified by Organization Detai ls LastModified Time None Recorded Concern Status LastModified by Organization Details LastModified Time None Recorded Advance Directives Directive N: Payers Insurance Date Sequence Insurance Name Policy Number Policy Valera Covered Member ID Valera Member ID Guarantor Name 02/09/2024 2 [place]PARTMENT OF PUBLIC AID Ina Chowdary [id number] Ina Stein sta 02/11/2025 1 *SELF PAY* Gallito Stein sta 02/11/2025 1 [facility] (MEDICAID HMO) [id number] Ina Chowdary [place] [id number] Ina Stein sta 09/15/2021 SLIDING FEE SCHEDULE - DISCOUNT Ina Stein sta 01/29/2019 SLIDING FEE SCHEDULE - DISCOUNT Ina Stein sta 02/03/2023 2 *SELF PAY* Gallito Stein sta 11/30/2017 1 MEDICAID - [facility] [place] [place] - PENDING [id number] Ina Stein sta Notes Date Note Type Note Provider Name and Address Organization Details Recorded Time 05/30/2023 text/html ROS as noted in the HPI 32yo G4 now P3 s/p Spontaneous Vaginal Delivery of Full-term AGA Male @ 39.3 wks gestation on 05/17/2023. Complicated by: anemia, macrocytosis, h/o miscarriage, and PCOS Delivery uncomplicatedLacera tions: noneEBL: 270 mlPreHgb 12.4 g/dL, Post Hgb 12.5 g/dLBirth DetailsApgars: 89Birth weight: 3495g Course: uncomplicated Today, 05/30/2023- Bonding: yes- Breast: no, bottle- Belly: good- Bowels: good- Bladder: good- Bleeding: improving- Boinking 'sex': not yet- Blues (EDPS): neg- Control: OCP Denies HOANG, blurred vision, neck pain, fevers, fatigue, night sweats, CP, SOB, NVDC, and rashes. RODRÍGUEZ SCHULZ MD Attn: Accounting[address] [place], [address], [facility] 06/16/2023 11:20:42 06/27/2023 text/html ROS as noted in the HPI 32yo G4 now P3 s/p Spontaneous Vaginal Delivery of Full-term AGA Male infant @ 39.3 wks gestation on 05/17/2023. Complicated by: anemia, macrocytosis, h/o miscarriage, and PCOS Delivery uncomplicatedLacera tions: noneEBL: 270 mlPreHgb 12.4 g/dL, Post Hgb 12.5 g/dLBirth DetailsApgars: 89Bir weight: 3495g Course: uncomplicated Today, 05/30/2023- Bonding: yes- Breast: no, bottle- Belly: good- Bowels: good- Bladder: good- Bleeding: improving- Boinking 'sex': not yet- Blues (EDPS): neg- Control: OCP Denies HOANG, blurred vision, neck pain, fevers, fatigue, night sweats, CP, SOB, NVDC, and rashes. Corinna Ordoñez MD Attn: Accounting[address] [place], [address], [facility] 06/30/2023 01:16:48 02/09/2024 text/html ROS as noted in the HPI 33 y/o F here for well woman exam. Pt is c/o varicose veins and inflammation of BLE (L>R). Denies SOB, CP, HOANG, N/V/D, dysuria, vaginal discharge. PETROS CABRERA PA-C Attn: Accounting[address] [place], [address], [facility] 02/09/2024 10:23:31 10/03/2024 text/html ROS as noted in the HPI 34 y/o F here for f/u oral control refills. Pt states doing well on control. She denies any s/sx of DVT or PE. Is not exercising, but is taking calcium and eating healthy. Denies SOB, CP, HOANG, N/V/D at this time. PETROS CABRERA PA-C Attn: Accounting[address] [facility], [place], [address], [facility] 10/03/2024 09:36:35 11/20/2024 text/html ROS as noted in the HPI 34 y/o F here to establish IM care. Pt is here for hospital/urgent care f/u. Pt was having CP, spent all night like that and went to Urgent care the next day. She was sent from to ER in ambulance d/t her heart beating too fast. She had testing done at ER and was told that there was nothing wrong and to f/u with PCP and to make an appt with cardiology. Has appt with cardiology on 12/03/24. Does have FHx of [place], father. Pt states that she has had this happen before but it usually only lasts a couple of minutes and goes away, this is the longest episode she has had. Denies SOB, diaphoresis, pain radiating to neck or arms, N/V/D, HOANG, blurry vision. PETROS CABRERA PA-C Attn: Accounting,[address] [facility], [place], [address], [facility] 11/20/2024 12:19:23 OBGyn Episode Ob Episode Information Episode Created Date Number of Fetuses Patient Bloodtype Patient rh Status Prepregnancy Weight lbs Domestic Partner Domestic Partner Phone Father Name Customer Support Manager Status 10/13/20 22 1 O Positive 140 CLOSED Fetus Data First Name Last Name Admitted to NICU Weight (g) Sex Living Outcome Pediatric Complications Fetus ID Race Codes Race Delivery Type Hank Pacheco Escob ar false 3486.98 85 M true Full Term PEDS Dr. Daisy Pope MD @ [facility] [id number] White Standard Vaginal Delivery Problems Problem Notes 10/13/22: Hospital: Undecide d, Combo Feed, Circumcision: No, Epidural: No, PPBC: Undecided, Customer Support Manager: Undecided: cm, having boy- Jhoan.Don't mention miscarriage around father of baby. Problem Name Start Date End Date Resolution Snomed Code Not e Macrocytosis 04/25/2023 MEDICATION 283598007 FeS Anemia of 05/05/2023 MEDICATION [id number] B12 supplementation Varicose veins in 02/03/2023 [id number] Pranay Calculation Initial Pranay Date Initial Exam Date Initial Exam Provider Initial Ultrasound Date Last Menstrual Period Date Ultra Sound Weeks Gestation 05/21/2023 10/13/2022 [email or web address] 10/20/2022 07/28/2022 9 Eighteen To Twenty Week Pranay Update Ultra Sound Date Fundal Height At Umbil Quickening Date Ultra Sound Latest Weeks Gestation Final Pranay Confirmed By Final Pranay Confirmed Date Final Pranay Date Ultra Sound Latest Days Gestation 0 [email or web address] 01/11/2023 05/21/20 23 0 Pre-alexandra Flowsheet Flowsheet Date 10/13/2022 Felipe Score Blood Edema Fundus Height Fundus Units Glucose Ketones Leukocytes Nitrite Labor Signs Protein Cervic Dilation Cervic Effacement Cervic Station trace none 8 wks none negative neg 0cm 0% -4 Type Weight in lbs Pre/Post Dialysis Refused With clothes 140.318906298949 BP Diastolic BP Location Tested BP Systolic BP Type 84 117 sitting Fetus Heart Rate Present A 167 Present Fetus Movement Comments 32yo HF presenting f or initial OB visit at approx 11 weeks. LMP 07/28/2022, definite, though pt reports irregular cycle. Feeling well, denies bleeding, discharge, cramping, fevers. Bedside dating US performed today with discrepancy in dating (11w vs 8+5w). Will send for formal US to confirm EDC. Initial labs drawn today. OB education provided and SAB precautions discussed. RTC in 4 weeks, cfDNA at next visit. Flowsheet Date 11/02/2022 Felipe Score Blood Edema Fundus Height Fundus Units Glucose Ketones Leukocytes Nitrite Labor Signs Protein Cervic Dilation Cervic Effacement Cervic Station Type Weight in lbs Pre/Post Dialysis Refused BP Diastolic BP Location Tested BP Systolic BP Type Fetus Heart Rate Present Fetus Movement Comments Flowsheet Date 11/10/2022 Felipe Score Blood Edema Fundus Height Fundus Units Glucose Ketones Leukocytes Nitrite Labor Signs Protein Cervic Dilation Cervic Effacement Cervic Station trace none 12 wks none negative neg Type Weight in lbs Pre/Post Dialysis Refused With clothes 141.594072867954 BP Diastolic BP Location Tested BP Systolic BP Type 66 102 sitting Fetus Heart Rate Present A 159 Present Fetus Movement Comments 32yo HF with h/o PCO S presenting for MIRELLA at 12+4 weeks. Feeling well, denies bleeding, discharge, cramping, fevers. US 10/20/22 with viable IUP at 9+4 weeks. Initial labs reviewed, wnl. cfDNA drawn today. RTC in 4 weeks. Flowsheet Date 12/08/2022 Felipe Score Blood Edema Fundus Height Fundus Units Glucose Ketones Leukocytes Nitrite Labor Signs Protein Cervic Dilation Cervic Effacement Cervic Station neg none 16 wks none negative none neg Type Weight in lbs Pre/Post Dialysis Refused With clothes 143.815877895316 BP Diastolic BP Location Tested BP Systolic BP Type 52 94 sitting Fetus Heart Rate Present A 155 Present Fetus Movement Comments 32yo HF with h/o PCO S presenting for MIRELLA at 16+4 weeks. Feeling well, denies bleeding, discharge, contractions, LOF. MSAFP drawn today. Anatomy US ordered. RTC in 4 weeks. Flowsheet Date 01/05/2023 Felipe Score Blood Edema Fundus Height Fundus Units Glucose Ketones Leukocytes Nitrite Labor Signs Protein Cervic Dilation Cervic Effacement Cervic Station neg none 21 cm none negative none neg Type Weight in lbs Pre/Post Dialysis Refused With clothes 146.392316122307 BP Diastolic BP Location Tested BP Systolic BP Type 58 110 sitting Fetus Heart Rate Present A 141 Present Fetus Movement A Yes Comments 32yo HF presenting f or MIRELLA at 20+4 weeks. Feeling well, denies bleeding, discharge, contractions, LOF, h/a, vision changes. Anatomy US preformed 01/04/23 with normal anatomy scan, EFW 89%, right lateral placenta, GIGI wnl. RTC in 4 weeks. Flowsheet Date 02/03/2023 Felipe Score Blood Edema Fundus Height Fundus Units Glucose Ketones Leukocytes Nitrite Labor Signs Protein Cervic Dilation Cervic Effacement Cervic Station neg none 25 cm none negative Other (see comments ) neg Type Weight in lbs Pre/Post Dialysis Refused With clothes 148.212280467810 BP Diastolic BP Location Tested BP Systolic BP Type 56 104 sitting Fetus Heart Rate Present A 145 Present Fetus Movement A Yes Comments 32yo HF presenting f or MIRELLA at 24+5 weeks. Feeling well, denies bleeding, discharge, contractions, LOF. Reporting painful varicose veins, compression stockings ordered today. OB edu and anticipatory guidance discussed. RTC in 4 weeks, GTT at that time. Flowsheet Date 03/08/2023 Felipe Score Blood Edema Fundus Height Fundus Units Glucose Ketones Leukocytes Nitrite Labor Signs Protein Cervic Dilation Cervic Effacement Cervic Station neg none 29 cm none negative none neg Type Weight in lbs Pre/Post Dialysis Refused With clothes 152.948974370643 BP Diastolic BP Location Tested BP Systolic BP Type 52 92 sitting Fetus Heart Rate Present A 132 Present Fetus Movement A Yes Comments 32yo HF presenting f or MIRELLA at 29+3 weeks. Feeling well, denies bleeding, discharge, contractions, LOF. 1 hour GCT completed today. Tdap administered. OB edu and anticipatory guidance discussed. RTC in [address] Schulz. Flowsheet Date 03/24/2023 Felipe Score Blood Edema Fundus Height Fundus Units Glucose Ketones Leukocytes Nitrite Labor Signs Protein Cervic Dilation Cervic Effacement Cervic Station neg none 31 cm none negative none neg Type Weight in lbs Pre/Post Dialysis Refused With clothes 154.386400271773 BP Diastolic BP Location Tested BP Systolic BP Type 64 112 sitting Fetus Heart Rate Present A 151 Present Fetus Movement A Yes Comments Ina is a 32y/o pre senting @ 31.5 dated by US at 9.4; here for routine OB exam. Preg complicated by: varicose veins in . She has no significant concerns today and reports normal antepartum symptoms of . She endorses good movement. She denies vaginal bleeding, vaginal discharge, loss of fluid, or contractions. She has not had a visit to ED or Triage since last appointment. Flowsheet Date 04/14/2023 Felipe Score Blood Edema Fundus Height Fundus Units Glucose Ketones Leukocytes Nitrite Labor Signs Protein Cervic Dilation Cervic Effacement Cervic Station neg none 35 cm none negative none neg Type Weight in lbs Pre/Post Dialysis Refused With clothes 154.728949682109 BP Diastolic BP Location Tested BP Systolic BP Type 60 112 sitting Fetus Heart Rate Present A 145 Present Fetus Movement A Yes Comments 32 yo @ 34.5 wks by 9 wk US not c/w LMP here for MIRELLA. (PRANAY 05/21/2023). Preg notable for: varicose veins in , microcytosis without anemia. No complaints today. Endorses good FM. no VB or DC. no LOF. no ctx. Compliant with PNV. CBC on 03/08 showing macrocytosis, Hgb normal. Check Vitamin b12/folate levels. (AFP negative for OSB). Anticipatory guidance provided. RTC in 1 week for MIRELLA. (GBS, HIV, RPR, Nuswab at that visit). Flowsheet Date 04/25/2023 Felipe Score Blood Edema Fundus Height Fundus Units Glucose Ketones Leukocytes Nitrite Labor Signs Protein Cervic Dilation Cervic Effacement Cervic Station neg none 35 cm none negative none Type Weight in lbs Pre/Post Dialysis Refused With clothes 155.57672015334 BP Diastolic BP Location Tested BP Systolic BP Type 62 110 sitting Fetus Heart Rate Present A 135 Fetus Movement A Yes Comments 32 y/o @ 36.2 wks by 9 wk US not c/w LMP here for MIRELLA. (PRANAY 05/21/2023). Preg notable for: varicose veins in , microcytosis without anemia, PCOS. Arrived to clinic for routine OB visit. Denies ER/triage visit since last appt. No LOF or vaginal bleeding. No Hoang/vison changes. No LOF or vaginal bleeding. Reports to normal movement. She does not have any concerns. Vitamin B12/folate checked today. Obtain GBS, HIV, RPR, Nuswab today. Anticipatory guidance provided. RTC in 1 week for MIRELLA. Flowsheet Date 05/02/2023 Felipe Score Blood Edema Fundus Height Fundus Units Glucose Ketones Leukocytes Nitrite Labor Signs Protein Cervic Dilation Cervic Effacement Cervic Station neg none 37 cm none negative none neg Type Weight in lbs Pre/Post Dialysis Refused With clothes 159.356884049661 BP Diastolic BP Location Tested BP Systolic BP Type 60 100 sitting Fetus Heart Rate Present A 146 Present Fetus Movement A Yes Comments Comments: 32 y/o @ 3 7.2 wks by 9 wk US not c/w LMP here for MIRELLA. (PRANAY 05/21/2023). Preg notable for: varicose veins in , microcytosis with anemia, PCOS. Arrived to clinic for routine OB visit. Denies ER/triage visit since last appt. No LOF or vaginal bleeding. No Hoang/vison changes. No LOF or vaginal bleeding. Reports to normal movement. She does not have any concerns.- Anticipatory guidance provided. RTC in 1 week for MIRELLA.- Discussed natural forms of induction of labor- Possibly delivering at [facility], will send records there due to her not giving a clear answer to where she would like to deliver.- All questions and concerns addressedcontinue PNV, cobalamin and FeS Flowsheet Date 05/09/2023 Felipe Score Blood Edema Fundus Height Fundus Units Glucose Ketones Leukocytes Nitrite Labor Signs Protein Cervic Dilation Cervic Effacement Cervic Station neg none 39 cm none negative none neg Type Weight in lbs Pre/Post Dialysis Refused With clothes 0.0 BP Diastolic BP Location Tested BP Systolic BP Type 72 112 sitting Fetus Heart Rate Present A 144 Present Fetus Movement A Yes Comments 32 y/o @ 38.2 wks by 9 wk US not c/w LMP here for MIRELLA. (PRANAY 05/21/2023). Preg notable for: varicose veins in , microcytosis with anemia, PCOS. Arrived to clinic for routine OB visit. Denies ER/triage visit since last appt. No LOF or vaginal bleeding. No Hoang/vison changes. No LOF or vaginal bleeding. Reports to normal movement. She does not have any concerns. - Anticipatory guidance provided. RTC in 1 week for MIRELLA. - Discussed natural forms of induction of labor vs artificial. Pt would like to have a natural delivery w/o induction. Plan for induction at 41wks.- Delivery at [facility]- All questions and concerns addressed continue PNV, cobalamin and FeS. Flowsheet Date 05/16/2023 Felipe Score Blood Edema Fundus Height Fundus Units Glucose Ketones Leukocytes Nitrite Labor Signs Protein Cervic Dilation Cervic Effacement Cervic Station none 39 cm Backpain 3cm 40% - 2 Type Weight in lbs Pre/Post Dialysis Refused With clothes 163.770357491038 BP Diastolic BP Location Tested BP Systolic BP Type 74 116 sitting Fetus Heart Rate Present A 146 Present Fetus Movement A Yes Comments Ina is a 32y/o pre senting @ 39.2 dated by LMP supported by US; here for routine OB exam. Initial US performed 1st trimester. Preg complicated by: miscarriage , PCOS . She has no significant concerns today and reports normal antepartum symptoms of . She endorses good movement. She denies vaginal bleeding, vaginal discharge, loss of fluid, or contractions. She has not had a visit to ED or Triage since last appointment. all questions answered and concerns addressed, continue PNV and cobalamin and FeS, s/s of labor discussed w/ pt, she is dilated today no obvious contractions. She was informed to go to L&D if contractions begin to be 5-10min a part or if her water breaks. Flowsheet Date 05/30/2023 Felipe Score Blood Edema Fundus Height Fundus Units Glucose Ketones Leukocytes Nitrite Labor Signs Protein Cervic Dilation Cervic Effacement Cervic Station Type Weight in lbs Pre/Post Dialysis Refused With clothes 146.679523252674 BP Diastolic BP Location Tested BP Systolic BP Type 70 R arm 118 sitting Fetus Heart Rate Present Fetus Movement Comments Menstrual History Last Menstrual Date Menses Monthly On Bcp Conception Prior Menses Frequency Hcg Plus Date Menarche Onset Age 1007/28/2022 false Genetic Screening And Infection History Question Response Note Patient's Age Will Be 35 Yea rs Or Older At Estimated Date of Delivery false Thalassemia (Northern Irish, Tamazight, Mediterranean, Or Background): MCV < 80 false Neural Tube Defect (Meningom yelocele, Spina Bifida, Or Anencephaly) false Congenital Heart Defect false Down Syndrome false Bahman-Sachs (eg, Faith, Cajun , Monegasque-[place]) false Champ Disease false Sickle Cell Disease Or Trait () false Hemophilia Or Other Blood Disorders false Muscular Dystrophy false Cystic Fibrosis false Coloma's Chorea false Mental Retardation/Autism false If Yes, Was Person Tested For Fragile X? false Other Inherited Genetic Or C hromosomal Disorder false Maternal Metabolic Disorder (eg, Type 1 Diabetes, PKU) false Patient Or Baby's Father Had A Child With Defects Not Listed Above false Recurrent Loss, Or A Stillbirth true SAB X 1 Medications (including Suppl ements, Vitamins, Herbs, OTC Drugs), Illicit/Recreational Drugs, Alcohol false Recommendation: St arting OTC Vitamin If Yes, Agent(s) And Strength/Dosage false Any Other Genetic History false Live With Someone With TB Or Exposed To TB false Patient Or Partner Has Histo ry Of Genital Herpes false Rash Or Viral Illness Since Last Menstrual Period false History Of STD, Gonorrhea, C hlamydia, HPV, Syphilis false Other Infection History false History of HIV false History of Hepatitis false Prior GBS-infected child false Plans and Education First Trimester Discussed Date Discussion Item Discussion Note Discuss ed By 10/13/2022 Anticipated course o f care 10/13/2022: [facility] education by this nurse via [facility]ie Gomez [employer] 10/13/2022 Alcohol 10/13/2022: [facility] education by this nurse via [employer]ie [employer] [facility] 10/13/2022 Intimate partner violence 2021: [facility]G education by this nurse via [employer]ie [employer] [facility] 10/13/2022 Environmental/work hazards 10/13: [facility]G education by this nurse via [employer]ie [employer] [facility] 10/13/2022 Screening for aneuploidy 022: [facility]G education by this nurse via [employer]ie [employer] [facility] 10/13/2022 Nutrition counseling ; special diet; dietary precautions (mercury, listeriosis) 10/13/2022: [facility]G education by this nurse via [employer]ie Gomez [employer] [facility] 10/13/2022 Childbirth classes/h ospital facilities 10/13/2022: [facility]G education by this nurse via [employer]ie Gomez [employer] [facility] 10/13/2022 HIV and other routin e tests 10/13/2022: [facility]G education by this nurse via [employer]ie Gomez [employer] [facility] 10/13/2022 Risk factors identif ied by history 10/13/2022: [facility]G education by this nurse via [employer]ie [employer] [facility] 10/13/2022 Weight gain counseling : [facility] education by this nurse via [employer]ie [employer] [facility] 10/13/2022 Exercise 10/13/2022: ACOG education by this nurse via [employer]ie [employer] [facility] 10/13/2022 Teratogens 10/13/2022: [facility]G education by this nurse via [employer]ie [employer] [facility] 10/13/2022 Use of any medicatio ns (including supplements, vitamins, herbs, or OTC drugs) 10/13/2022: [facility]G education by this nurse via [employer] [facility] 10/13/2022 10/13/2022: [facility]COG education by this nurse via [employer] [facility] 10/13/2022 Sexual activity 10/13/2022: [facility]G education by this nurse via [employer]ie [employer] [facility] 10/13/2022 Tobacco/smoking cess ation counseling (ask, advise, assess, assist, and arrange) 10/13/2022: [facility] education by this nurse via [employer] [facility] 10/13/2022 Illicit/recreational drugs 10/13: [facility]G education by this nurse via [employer] [facility] 10/13/2022 Dental care 10/13/2022: [facility]G education by this nurse via [employer] [facility] 10/13/2022 Travel 10/13/2022: [facility]G education by this nurse via [employer] [facility] 10/13/2022 Seat belt use 10/13/2022: [facility]COG education by this nurse via [employer] [employer] [facility] 10/13/2022 Indications for ultrasonography 10/13/2022: [facility]G education by this nurse via [employer] [facility] 10/13/2022 Avoidance of saunas or hot tubs 10/13/2022: [facility]COG education by this nurse via innovation analyst [employer]ie Durbin [employer] [facility] 10/13/2022 Toxoplasmosis precau tions (cats/raw meat) 10/13/2022: [facility]G education by this nurse via [employer] [facility] Second Trimester Discussed Date Discussion Item Discussion Note Discuss ed By Third Trimester Discussed Date Discussion Item Discussion Note Discuss ed By Delivery Information Delivery Date Delivery Type Labor Anesthesia Weeks Gestation Incision Type Labor Labor Length Hrs Delivered By Post Complications Tubal Sterilization Discharge Date Comments 3 Induce d None 39.3 false false Discharge Information Feeding Method Contraceptive Method Maternal HG B and HCT Levels Bottle BCP Ob Episode Information Episode Created Date Number of Fetuses Patient Bloodtype Patient rh Status Prepregnancy Weight lbs Domestic Partner Domestic Partner Phone Father Name Customer Support Manager Status 01/02/20 21 1 O Positive 143 CLOSED Fetus Data First Name Last Name Admitted to NICU Weight (g) Sex Living Outcome Pediatric Complications Fetus ID Race Codes Race Delivery Type Pérez Davis lo Escob ar false 3628.73 6 M true Full Term none [id number] White Standard Vaginal Delivery Problems Problem Notes boy no to circumsise ,breast feeding,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 ,no to epidural Problem Name Start Date End Date Resolution Snomed Code Not e Polycystic ovary syndrome 06/25/2020 [id number] Testosterone level above reference range 01/02/2021 [id number] Past history of miscarriage 01/02/2021 [id number] The MTHFR is NEGATIVE (No mutation identified) Pranay Calculation Initial Pranay Date Initial Exam Date Initial Exam Provider Initial Ultrasound Date Last Menstrual Period Date Ultra Sound Weeks Gestation 08/08/2021 01/01/2021 [email or web address] 12/12/2020 10/10/2020 5 Eighteen To Twenty Week Pranay Update Ultra Sound Date Fundal Height At Umbil Quickening Date Ultra Sound Latest Weeks Gestation Final Pranay Confirmed By Final Pranay Confirmed Date Final Pranay Date Ultra Sound Latest Days Gestation 01/09/20 21 9 [email or web address] 01/02/2021 021 5 Pre-alexandra Flowsheet Flowsheet Date 01/01/2021 Felipe Score Blood Edema Fundus Height Fundus Units Glucose Ketones Leukocytes Nitrite Labor Signs Protein Cervic Dilation Cervic Effacement Cervic Station neg none 12 wks none negative none neg Type Weight in lbs Pre/Post Dialysis Refused With clothes 143.250183186699 BP Diastolic BP Location Tested BP Systolic BP Type 60 100 sitting Fetus Heart Rate Present Fetus Movement Comments NOB, rx for hist of mis Flowsheet Date 01/16/2021 Felipe Score Blood Edema Fundus Height Fundus Units Glucose Ketones Leukocytes Nitrite Labor Signs Protein Cervic Dilation Cervic Effacement Cervic Station Type Weight in lbs Pre/Post Dialysis Refused With clothes 141.093083353546 BP Diastolic BP Location Tested BP Systolic BP Type 62 106 sitting Fetus Heart Rate Present Fetus Movement Comments ACOG visit at 10 wks 6 days. 01/08 US with EDC 08/08/21. Test results reviewed. OB educational packet reviewed and provided to patient. Flowsheet Date 01/29/2021 Felipe Score Blood Edema Fundus Height Fundus Units Glucose Ketones Leukocytes Nitrite Labor Signs Protein Cervic Dilation Cervic Effacement Cervic Station neg none 12 wks none negative none neg Type Weight in lbs Pre/Post Dialysis Refused With clothes 0.0 BP Diastolic BP Location Tested BP Systolic BP Type 60 102 sitting Fetus Heart Rate Present A 160 Present Fetus Movement A No Comments MIRELLA at 12 wk 5 days. B12 inj ection received. EDC 08/08/21. Flowsheet Date 02/26/2021 Felipe Score Blood Edema Fundus Height Fundus Units Glucose Ketones Leukocytes Nitrite Labor Signs Protein Cervic Dilation Cervic Effacement Cervic Station neg none 17 wks none negative none neg Type Weight in lbs Pre/Post Dialysis Refused With clothes 141.731852193558 BP Diastolic BP Location Tested BP Systolic BP Type 66 98 sitting Fetus Heart Rate Present A 150 Present Fetus Movement A Yes Comments MIRELLA at 16w5d. Administered B 12 by injection. Ordered 2nd trimester US to be performed before next visit in 4 weeks. Flowsheet Date 03/26/2021 Felipe Score Blood Edema Fundus Height Fundus Units Glucose Ketones Leukocytes Nitrite Labor Signs Protein Cervic Dilation Cervic Effacement Cervic Station neg none 21 wks none negative none neg Type Weight in lbs Pre/Post Dialysis Refused Weight 146.503906861052 BP Diastolic BP Location Tested BP Systolic BP Type 62 112 standing Fetus Heart Rate Present A 148 Present Fetus Movement A Yes Comments B12 today, US ordered today Flowsheet Date 04/23/2021 Felipe Score Blood Edema Fundus Height Fundus Units Glucose Ketones Leukocytes Nitrite Labor Signs Protein Cervic Dilation Cervic Effacement Cervic Station neg none 24 wks none negative none neg Type Weight in lbs Pre/Post Dialysis Refused With clothes 155.961990729180 BP Diastolic BP Location Tested BP Systolic BP Type 58 110 sitting Fetus Heart Rate Present A 144 Present Fetus Movement A Yes Comments Flowsheet Date 05/25/2021 Felipe Score Blood Edema Fundus Height Fundus Units Glucose Ketones Leukocytes Nitrite Labor Signs Protein Cervic Dilation Cervic Effacement Cervic Station neg none 29.2 wks none negative none neg Type Weight in lbs Pre/Post Dialysis Refused With clothes 158.239342105766 BP Diastolic BP Location Tested BP Systolic BP Type 62 118 sitting Fetus Heart Rate Present A 145 Present Fetus Movement A Yes Comments GTT, b12, US, TDap Flowsheet Date 06/10/2021 Felipe Score Blood Edema Fundus Height Fundus Units Glucose Ketones Leukocytes Nitrite Labor Signs Protein Cervic Dilation Cervic Effacement Cervic Station neg none 31 wks none negative none neg Type Weight in lbs Pre/Post Dialysis Refused Weight 161.392196608987 BP Diastolic BP Location Tested BP Systolic BP Type 64 118 sitting Fetus Heart Rate Present A 144 Present Fetus Movement A Yes Comments b12 Flowsheet Date 06/24/2021 Felipe Score Blood Edema Fundus Height Fundus Units Glucose Ketones Leukocytes Nitrite Labor Signs Protein Cervic Dilation Cervic Effacement Cervic Station neg none 34 wks none negative none neg Type Weight in lbs Pre/Post Dialysis Refused With clothes 161.996857700047 BP Diastolic BP Location Tested BP Systolic BP Type 62 112 sitting Fetus Heart Rate Present A 148 Present Fetus Movement A Yes Comments B12 given today. Flowsheet Date 07/20/2021 Felipe Score Blood Edema Fundus Height Fundus Units Glucose Ketones Leukocytes Nitrite Labor Signs Protein Cervic Dilation Cervic Effacement Cervic Station neg none 37 wks none negative none neg 0cm 0% - 4 Type Weight in lbs Pre/Post Dialysis Refused BP Diastolic BP Location Tested BP Systolic BP Type Fetus Heart Rate Present A 145 Present Fetus Movement A No Comments b12 given today. Nuswab and GBS swabs today. WLB/WTC given today. Flowsheet Date 07/27/2021 Felipe Score Blood Edema Fundus Height Fundus Units Glucose Ketones Leukocytes Nitrite Labor Signs Protein Cervic Dilation Cervic Effacement Cervic Station neg none 38 wks none negative none neg 0cm 0% - 4 Type Weight in lbs Pre/Post Dialysis Refused Weight [id number] BP Diastolic BP Location Tested BP Systolic BP Type 68 108 sitting Fetus Heart Rate Present A 152 Present Fetus Movement A Yes Comments no complaints today. Patient plans on waiting for labor to induce naturally. Flowsheet Date 08/03/2021 Felipe Score Blood Edema Fundus Height Fundus Units Glucose Ketones Leukocytes Nitrite Labor Signs Protein Cervic Dilation Cervic Effacement Cervic Station trace none 39 wks none negative Cramping neg 0cm 5 0% -4 Type Weight in lbs Pre/Post Dialysis Refused With clothes [id number] BP Diastolic BP Location Tested BP Systolic BP Type 60 120 sitting Fetus Heart Rate Present A 147 Present Fetus Movement A Yes Comments Would like to wait until nex t week to go into labor. If not, would proceed with induction Flowsheet Date 08/25/2021 Felipe Score Blood Edema Fundus Height Fundus Units Glucose Ketones Leukocytes Nitrite Labor Signs Protein Cervic Dilation Cervic Effacement Cervic Station Type Weight in lbs Pre/Post Dialysis Refused BP Diastolic BP Location Tested BP Systolic BP Type Fetus Heart Rate Present Fetus Movement Comments Flowsheet Date 08/25/2021 Felipe Score Blood Edema Fundus Height Fundus Units Glucose Ketones Leukocytes Nitrite Labor Signs Protein Cervic Dilation Cervic Effacement Cervic Station Type Weight in lbs Pre/Post Dialysis Refused BP Diastolic BP Location Tested BP Systolic BP Type 70 112 sitting Fetus Heart Rate Present Fetus Movement Comments Menstrual History Last Menstrual Date Menses Monthly On Bcp Conception Prior Menses Frequency Hcg Plus Date Menarche Onset Age 1210/10/2020 false Genetic Screening And Infection History Question Response Note Patient's Age Will Be 35 Years Or Older At Estim ated Date of Delivery false Thalassemia (Northern Irish, Tamazight, Mediterranean, Or Background): MCV < 80 false Neural Tube Defect (Meningomyelocele, Spina Bifi da, Or Anencephaly) false Congenital Heart Defect false Down Syndrome false Bahman-Sachs (eg, Faith, Cajun, Monegasque-[place]) f alse Champ Disease false Sickle Cell Disease Or Trait () false Hemophilia Or Other Blood Disorders false Muscular Dystrophy false Cystic Fibrosis false Coloma's Chorea false Mental Retardation/Autism false If Yes, Was Person Tested For Fragile X? false Other Inherited Genetic Or Chromosomal Disorder false Maternal Metabolic Disorder (eg, Type 1 Diabetes , PKU) false Patient Or Baby's Father Had A Child With Defects Not Listed Above false Recurrent Loss, Or A Stillbirth true SABx1 Medications (including Suppl ements, Vitamins, Herbs, OTC Drugs), Illicit/Recreational Drugs, Alcohol false If Yes, Agent(s) And Strength/Dosage false Any Other Genetic History false Live With Someone With TB Or Exposed To TB false Patient Or Partner Has History Of Genital Herpes false Rash Or Viral Illness Since Last Menstrual Perio d false History Of STD, Gonorrhea, Chlamydia, HPV, Syphi lis false Other Infection History false History of HIV false History of Hepatitis false Prior GBS-infected child false Plans and Education First Trimester Discussed Date Discussion Item Discussion Note Discuss ed By 01/16/2021 Anticipated course of care [email or web address] 01/16/2021 Alcohol [email or web address] 01/16/2021 Intimate partner violence siddhartha [email or web address] 01/16/2021 Environmental/work hazards j [email or web address] 01/16/2021 Screening for aneuploidy [email or web address] [email or web address] 01/16/2021 Nutrition counseling ; special diet; dietary precautions (mercury, listeriosis) [email or web address] 01/16/2021 Childbirth classes/hospital facilities [email or web address] 01/16/2021 HIV and other routine tests [email or web address] 01/16/2021 Risk factors identif ied by history [email or web address] 01/16/2021 Weight gain counseling jcort [email or web address] 01/16/2021 Exercise [email or web address] 01/16/2021 Teratogens [email or web address] 01/16/2021 Use of any medicatio ns (including supplements, vitamins, herbs, or OTC drugs) [place] [id number] 01/16/2021 [place] [id number] 01/16/2021 Sexual activity [place] [id number] 01/16/2021 Tobacco/smoking cess ation counseling (ask, advise, assess, assist, and arrange) [place] [id number] 01/16/2021 Illicit/recreational drugs [place] [id number] 01/16/2021 Dental care [place] [id number] 01/16/2021 Travel [place] [id number] 01/16/2021 Seat belt use [place] [id number] 01/16/2021 Indications for ultrasonography [place] [id number] 01/16/2021 Avoidance of saunas or hot tubs [place] [id number] 01/16/2021 Toxoplasmosis precautions (cats/raw meat) [place] [id number] Second Trimester Discussed Date Discussion Item Discussion Note Discuss ed By Third Trimester Discussed Date Discussion Item Discussion Note Discuss ed By Delivery Information Delivery Date Delivery Type Labor Anesthesia Weeks Gestation Incision Type Labor Labor Length Hrs Delivered By Post Complications Tubal Sterilization Discharge Date Comments 1 Sponta neous None 39.6 false 1 Héctor Carrion MD None false 08/08/2021 Discharge Information Feeding Method Contraceptive Method Maternal HG B and HCT Levels Combination slynd Ob Episode Information Episode Created Date Number of Fetuses Patient Bloodtype Patient rh Status Prepregnancy Weight lbs Domestic Partner Domestic Partner Phone Father Name Customer Support Manager Status 01/02/20 21 1 CLOSED Fetus Data First Name Last Name Admitted to NICU Weight (g) Sex Living Outcome Pediatric Complications Fetus ID Race Codes Race Delivery Type , Spontane ous [id number] Pranay Calculation Initial Pranay Date Initial Exam Date Initial Exam Provider Initial Ultrasound Date Last Menstrual Period Date Ultra Sound Weeks Gestation 0 Eighteen To Twenty Week Pranay Update Ultra Sound Date Fundal Height At Umbil Quickening Date Ultra Sound Latest Weeks Gestation Final Pranay Confirmed By Final Pranay Confirmed Date Final Pranay Date Ultra Sound Latest Days Gestation 0 0 Menstrual History Last Menstrual Date Menses Monthly On Bcp Conception Prior Menses Frequency Hcg Plus Date Menarche Onset Age Delivery Information Delivery Date Delivery Type Labor Anesthesia Weeks Gestation Incision Type Labor Labor Length Hrs Delivered By Post Complications Tubal Sterilization Discharge Date Comments 0 3 Discharge Information Feeding Method Contraceptive Method Maternal HG B and HCT Levels Ob Episode Information Episode Created Date Number of Fetuses Patient Bloodtype Patient rh Status Prepregnancy Weight lbs Domestic Partner Domestic Partner Phone Father Name Customer Support Manager Status 11/30/19 18 1 CLOSED Fetus Data First Name Last Name Admitted to NICU Weight (g) Sex Living Outcome Pediatric Complications Fetus ID Race Codes Race Delivery Type 3685.43 5 M Full Term [id number] Vaginal Pranay Calculation Initial Pranay Date Initial Exam Date Initial Exam Provider Initial Ultrasound Date Last Menstrual Period Date Ultra Sound Weeks Gestation 0 Eighteen To Twenty Week Pranay Update Ultra Sound Date Fundal Height At Umbil Quickening Date Ultra Sound Latest Weeks Gestation Final Pranay Confirmed By Final Pranay Confirmed Date Final Pranay Date Ultra Sound Latest Days Gestation 0 0 Menstrual History Last Menstrual Date Menses Monthly On Bcp Conception Prior Menses Frequency Hcg Plus Date Menarche Onset Age Delivery Information Delivery Date Delivery Type Labor Anesthesia Weeks Gestation Incision Type Labor Labor Length Hrs Delivered By Post Complications Tubal Sterilization Discharge Date Comments 7 None 40 baby boy born in [facility] Discharge Information Feeding Method Contraceptive Method Maternal HG B and HCT Levels
[2025-09-08 11:26] VITALS: BP 111/78; PULSE 76; RESP 16; TEMP 36.6; O2SAT 100
--- OUTSIDE RECORDS SUMMARY | 2025-09-08 11:30 | XMS_ITS | Clinical Summary ---
Author Organization 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 Gender Identity Not on file Sexual Orientation Not on file Plan of Treatment Health Maintenance Due Date Last Done Comments Hepatitis C Virus (HCV) Screening 1988 TdaP Immunization 1988 Hepatitis B Immunization (1 of 3 - 19+ 3-dose series) 2007 Pap Smear 2009 Human Papillomavirus (HPV) Immunization (1 - 3-dose SCDM series) 2015 Cervical Cancer Screening (CCS) 2018 HPV/Cotest 2018 Influenza Immunization (#1) 2025 SARS-COV-2 Immunization ( season) 2025 Respiratory Syncytial Virus (RSV) Immunization (Adult) (1 - 1-dose 75+ series) 2063 Meningococcal Immunization (ACWY) Aged Out No longer eligible based on patient's age to complete this topic Pneumococcal Immunization Combined Aged Out No longer eligible based on patient's age to complete this topic Rotavirus Immunization Aged Out No lo nger eligible based on patient's age to complete this topic
--- NOTE | 2025-09-08 11:32 | ED_ITS ---
HPI - Female Genitourinary General Chief complaint: BURRITO MAKER Stated complaint: pelvic inflammation Time Seen by Provider: 09/08/25 11:25 Source: patient Mode of arrival: ambulatory Limitations: no limitations History of Present Illness HPI Narrative: 35 years old female does not speak Persian complaining of right lower pelvic pain right groin pain started often on for the last 2 weeks, slightly worse this morning. Patient denies aggravating or relieving factors, when it comes last for few sec only. Patient denies any fever, chills, nausea, vomiting, diarrhea, constipation, vaginal bleeding or discharge. Last cycle was July 10. History of irregular. Patient denies any history of abdominal surgery. Patient does not smoke or drink or use drugs, does not take medicine home. Related Data Home Medications ?Medication ?Instructions ?Recorded ?Confirmed ?Last Taken ?Type drospirenone (contraceptive) 4 mg 1 tablet PO QHS 10/1711/15/24 Unknown History (28) tablet (Slynd) Allergies Allergy/AdvReac Type Severity Reaction Status Date / Time No Known Allergies Allergy Verified 09/08/25 11:12 Review of Systems 2 Review of Systems: All systems reviewed & are unremarkable except as noted in HPI and below PMFSH Past Medical History Medical History Vaginal delivery 04/08/20171408 lbs.2 oz.MVaginalFull Term BirthNonebaby boy born in [facility], History of miscarriage Blood testosterone increased compared with prior measurement PCOS (polycystic ovarian syndrome) Surgical History Surgical History No pertinent past surgical history Family History Family History Father Hypertension Acute myocardial infarction, Onset Age: 37 Social History Social History Smoking status: Never smoker Second hand tobacco smoke exposure: No Alcohol intake: never Substance use: never Substance use type: does not use Living arrangements: with family Occupation/Education: unemployed Gender identity (if verbalized by the patient): Female Sexual Orientation (if Verbalized by the Patient): Straight or Heterosexual Spiritual care concerns: No Agree to blood products: Yes Exam 2 Narrative: General appearance: Well-developed, well-nourished Skin: Normal color Head: Normocephalic, nontraumatic Eyes: Clear conjunctiva ENT: Oropharynx normal, ears normal, nose normal Neck: Supple, nontender Chest and respiratory: Airway patent, no respiratory distress, no accessory muscle use Heart: Regular rate/rhythm Abdomen: Soft, slight tenderness right lower abdomen close to the groin area, no bruises, no swelling, no rash, no mass, no organomegaly, quiet bowel sounds Vascular: Normal peripheral pulses, normal capillary refill. Musculoskeletal: Normal range of motion, nontender back Neurologic: Alert and oriented ?3, COATING TECHNICIAN is normal as tested, no gross motor deficit Course Vital Signs Vital signs: Vital Signs Temperature 36.6 C 09/08/25 11:26 Pulse Rate 76 09/08/25 11:26 Respiratory Rate 16 09/08/25 11:26 Blood Pressure 111/78 09/08/25 11:26 Pulse Oximetry 100 09/08/25 11:26 Oxygen Delivery Room Air 09/08/25 11:26 Temperature 36.6 C 09/08/25 11:26 Pulse Rate 60 09/08/25 12:47 Respiratory Rate 14 09/08/25 12:47 Blood Pressure 103/69 09/08/25 12:47 Pulse Oximetry 100 09/08/25 12:47 Oxygen Delivery Room Air 09/08/25 11:26 MDM - Female Genitourinary MDM Narrative Medical decision making narrative: Right lower abdomen/pelvis/groin intermittent pain for 2 weeks Vital signs are stable Physical examination showing slight tenderness right pelvic area/groin area without any other findings. Differential diagnosis muscle strain/sprain, less likely appendicitis, colitis, diverticulitis, or urinary tract infection Blood workup today includes CBC, CMP, lipase showed WBC 11.9 otherwise no acute abnormalities Urinalysis showed no acute abnormalities CT abdomen and pelvis with IV contrast showed no acute abnormality. Diagnosis right pelvic pain of unknown etiology The pt was discharged to home.the pt,s condition upon discharge was fair,education was provided to the pt in reference to the final impression,discharge study results,treatment,prognosis and need for follow up . Differential Diagnosis Differential diagnosis: Likely other (As above) Lab Data Attestation: I reviewed the patient's lab results. 09/08/25 11:43 09/08/25 11:43 Labs: Lab Results 09/08/25 Range/Units 11:43 WBC 11.9 H (4.5-10.0) K/mm3 RBC 4.26 (4.2-5.4) M/mm3 Hgb 13.9 (12.0-15.0) g/dL Hct 40.6 (37.0-47.0) % MCV 95.3 (80-100) fl MCH 32.6 (26-34) pg MCHC 34.2 (32-36) g/dl RDW 12.2 (11.5-14.5) % Plt Count 322 (150-375) k/mm3 MPV 10.0 (7.4-10.4) fl Immature Gran % (Auto) 0.3 (0-0.5) % Neut % (Auto) 60.9 (45.5-73.1) % Lymph % (Auto) 29.9 (18.3-44.2) % [place] % (Auto) 5.6 (2.6-8.5) % Eos % (Auto) 2.5 (0-4.4) % Baso % (Auto) 0.8 (0.2-1.2) % Lymph # (Auto) 3.55 H (0.9-3.2) K/mm3 [place] # (Auto) 0.7 H (0.1-0.6) K/mm3 Eos # (Auto) 0.3 (0-0.3) K/mm3 Baso # (Auto) 0.1 (0.0-0.1) K/mm3 Abs Immat Gran (auto) 0.03 (0.00-0.031) K/mm3 Absolute Neuts (auto) 7.3 H (1.3-6.7) K/mm3 Absolute Nucleated RBC 0.000 (0.0-0.012) K/mm3 Nucleated RBC % 0.0 (0.0-0.2) % Sodium 137 (137-145) mmol/L Potassium 3.7 (3.4-5.0) mmol/L Chloride 106 (98-107) mmol/L Carbon Dioxide 23 (22-30) mmol/L Anion Gap 8 (4-12) mmol/L BUN 11 (7-17) mg/dL Creatinine 0.61 L (0.7-1.0) mg/dL Estim Creat Clear Calc Not Reportable Estimated GFR > 60 (59 - ) Glucose 97 (65-110) mg/dL Calcium 9.5 (8.4-10.2) mg/dL Total Bilirubin 0.9 (0.2-1.3) mg/dL AST 23 (14-36) U/L ALT 18 (6-35) U/L Alkaline Phosphatase 63 (38-126) U/L Total Protein 7.5 (6.3-8.2) g/dL Albumin 4.3 (3.5-5.1) g/dL Lipase 90 (23-300) U/L Urine Color Yellow (Yellow) Urine Appearance Clear (Clear) Urine pH 6.0 (5.0-9.0) Ur Specific [place] 1.004 (1.001-1.035) Urine Protein Negative (Negative) mg/dL Urine Glucose (UA) Negative (Negative) mg/dL Urine Ketones Negative (Negative) mg/dL Ur Blood (Man) Negative (Negative) Urine Nitrate Negative (Negative) Urine Bilirubin Negative (Negative) Urine Urobilinogen 0.2 (<2.0) mg/dL Leukocyte Esterase Rfl Trace H (Negative) ELÍAS/UL Urine RBC 0-2 (0-2) /hpf Urine WBC 0-5 (0-3) /hpf Ur Squamous Epith Cells Occasional (Few) /hpf Urine Bacteria None seen /hpf Urine Casts 0-2 Imaging Data Radiologist's impression: Impressions Abdomen/Pelvis CT 09/08/25 13:31 IMPRESSION: 1. No acute abnormality. 2. Additional findings as above. Critical Care Time Critical Care Time Critical Care Time: No Discharge Plan Discharge Clinical Impression: Right-sided pelvic pain Patient Disposition: Home Condition: Stable Instructions: Pelvic Pain in Women (ED) Additional Instructions: Return if symptoms are worsening , call your family physician for appointment, take Tylenol as as needed for aches and pain, continue home medications. Patient Language: Slovak Prescriptions: New naproxen [Naprosyn] 500 mg tablet 500 mg PO BID PRN (Reason: pain) Qty: 14 0RF No Action Slynd 4 mg (28) tablet 1 tablet PO QHS amoxicillin 500 mg capsule 500 mg PO BID 10 Days Qty: 20 0RF fluticasone propionate [Flonase Allergy Relief] 50 mcg/actuation spray,suspension 1 spray intranasal DAILY Qty: 16 0RF Rx Instructions: administer into each nostril Follow-up/Referrals: PHYSICIAN,CUT ROLL MACHINE OPERATOR [Primary Care Provider, Internal Medicine] Johann Wallace MD [Physician, Family Practice] - 09/12/25
[2025-09-08 11:52] LABS: Hematocrit 40.6 % (37.0-47.0); Hemoglobin 13.9 g/dL (12.0-15.0); Immature Granulocyte Percent A 0.3 % (0-0.5); Lymphocytes Absolute Auto 3.55 K/mm3 (0.9-3.2); Mean Corpuscular HGB Conc 34.2 g/dl (32-36); Mean Corpuscular Hemoglobin 32.6 pg (26-34); Mean Corpuscular Volume 95.3 fl (80-100); Nucleated Red Blood Cells Absolute Auto 0.000 K/mm3 (0.0-0.012); Nucleated Red Blood Cells Perc 0.0 % (0.0-0.2); Platelet Count Result 322 k/mm3 (150-375); Red Blood Count 4.26 M/mm3 (4.2-5.4); White Blood Count 11.9 K/mm3 (4.5-10.0)
[2025-09-08 11:58] LABS: Add Urine Microscopic? YES; Appearance Urine Clear (Clear); Glucose Urine UA Negative (Negative); Leukocyte Esterase Ur Trace LEU/UL (Negative); Nitrate Urine Negative (Negative); Non Pathogenic Casts 0-2; Specific Grav Ur 1.004 (1.001-1.035)
[2025-09-08 12:02] LABS: Alanine Aminotransferase 18 U/L (6-35); Albumin Level 4.3 g/dL (3.5-5.1); Alkaline Phosphatase 63 U/L (38-126); Anion Gap 8 mmol/L (4-12); Aspartate Amino Transferase 23 U/L (14-36); Bilirubin,Total 0.9 mg/dL (0.2-1.3); Blood Urea Nitrogen 11 mg/dL (7-17); Calcium 9.5 mg/dL (8.4-10.2); Carbon Dioxide 23 mmol/L (22-30); Chloride 106 mmol/L (98-107); Estimated Glomerular Filt Rate > 60; Glucose 97 mg/dL (65-110); Lipase 90 U/L (23-300); Potassium 3.7 mmol/L (3.4-5.0); Sodium 137 mmol/L (137-145); Total Protein 7.5 g/dL (6.3-8.2)
[2025-09-08 12:47] VITALS: BP 103/69; PULSE 60; RESP 14; O2SAT 100
[2025-09-08] MEDS: SODIUM CHLORIDE 0.9% IV 1,000 ML 999 ML IV CONT (12:55)
[2025-09-09 11:50] LABS: BEDSIDEPREGUCG Negative (Negative)
== END 2025-09-08 14:23 | disposition home or self-care (01) ==
PROVIDERS: Emergency Medicine; Emergency Provider Emergency Medicine
DX: R10.21 Pelvic and perineal pain right side (principal); E28.2 Polycystic ovarian syndrome
CPT/HCPCS: 36415; 74177; 80053; 81001; 81025; 83690; 85025; 96360; 99284; J7030; Q9967